=== PATIENT | male | born 1955 | race Caucasian/White ===

== ENCOUNTER 2017-04-21 01:55 | Emergency (ER) | payer MEDICARE, MEDICAID ==
[~2017-04-21] VITALS: Ht 180.3 cm; Wt 77.1 kg
[~2017-04-21 01:55] MED LIST: ADVAIR DISK28 PUFFS IN; AEROSOL THERAPY1 DEV XX; AMITRIPTYLINE 550 MG PO; AMLODIPINE5 M1 PO; AUGMENTIN 875-1 EACH PO; CARVEDILOL6.25 MG PO; CLEOCIN HCL300 MG PO; COMBIVENT RESPI1 SPR IH; CYMBALTA60 MG PO; DALIRESP500 MCG PO; HYDROCODONE-APA1 TA1 PO; IPRATROPIUM BROM3 M1 IH; LYRICA50 MG PO; MEDROL 4MG. DOSE4 MG PO; METFORMIN500 MG PO; OXYBUTYNIN CHLO10 MG PO; PRAVACHOL 40MG40 MG PO; PREDNISONE 20MG20 MG PO; SINGULAIR 10 MG10 MG PO; TRAZODONE HCL300 M1 PO
--- OUTSIDE RECORDS SUMMARY | 2017-04-21 02:29 | External Medical Summary Rpt ---
Author Author , JESUS LEE Address Unknown Phone [email or web address] Care Team Providers Care Floorworker Lasting Name Role Phone ALAN PHILLIPS Unavailable Unavailable MANPREET BOSWELL BOND, Unavailable Unavailable [facility] Unavailable Unavailable SERVICE, [facility] Unavailable [facility]available SERVICE, [facility] CHIPPS PAIGE & Unavailable Unavailable DUBILIER, [facility], Unavailable Unavailable [facility], Unavailable Unavailable [facility] Unavailable Unavailable EQUIPMENT, [facility] Unavailable Unavailable EQUIPMENT, [facility] PINEDA, PINEDA Unavailable Unavailable DALATI, WILLIE A, Unavailable Unavailable DALATI, WILLIE A PHILIP, PHILIP Unavailable Unavailable ROZ BULLOCK EVANS, Unavailable Unavailable RO[facility] Unavailable Unavailable HOME, [facility], Unavailable Unavailable [facility] Unavailable Unavailable INC, [facility] Unavailable Unavailable [facility]PITAL , [facility] Unavailable Unavailable [facility]ICAL CENT, [facility] Unavailable [facility]available [facility]ING [facility], [facility], Unavailable Unavailable [facility], Unavailable Unavailable [facility] Unavailable Unavailable MEDIC, [facility] MARIVEL PRADO, Unavailable Unavailable ROZ TADEO JR, RICE, Unavailable Unavailable MOY ROA, Unavailable Unavailable MOY IRVIN PHILIP N, Unavailable Unavailable AMI GAMBOA Purpose Continuity of Care Document - 10-22-2007 through 2016 Problems Code Diagnosis DOS Provider Status J449 CHRONIC 03-25-2017 [facility] P[facility] EQUIPMENT DISEASE UNS C3490 MALIGNANT 03-19-2017 [facility] NEOPLASM [facility] UNS PART INC UNS BRONCHUS/RAAJN NG Z0389 ENCOUNTER 03-19-2017 [facility]BSERV [facility]TH [facility] SUSPCT DZ & INC COND RULED OUT R0902 HYPOXEMIA 03-18-2017 [facility] J441 CHRONIC 03-09-2017 [facility] P[facility]MONARY DZ W/EXACERBAT ION D381 NEOPLASM 03-05-2017 [facility] P BRONCHUS & LUNG I10 ESSENTIAL 02-06-2017 [facility] HYPERTENSIO HOME N J439 EMPHYSEMA 02-06-2017 [facility] UNSPECIFIED [facility]BULANCE SERVICE J9611 CHRONIC 02-06-2017 [facility] RESPIRATORY [facility]SING FAILURE HOME WITH HYPOXIA M6281 MUSCLE 02-06-2017 [facility] WEAKNESS NURSING GENERALIZED HOME R010 BENIGN AND 02-06-2017 [facility] INNOCENT NURSING CARDIAC HOME MURMURS R5382 CHRONIC 02-06-2017 [facility] FATIGUE NURSING UNSPECIFIED HOME R55 SYNCOPE AND 02-06-2017 [facility] COLLAPSE SKILLED NURSING J189 PNEUMONIA 02-04-2017 [facility] UNSPECIFIED PAIGE & ORGANISM DUBILIER C3431 MALIGNANT 02-03-2017 [facility] NEOPLASM [facility] P RT BRONCHUS/RAJAN NG J9621 ACUTE & 02-03-2017 [facility] RESPIRATORY [facility] P FAILURE WITH HYPOXIA R918 OTHER 02-03-2017 [facility] FINDING OF LUNG FIELD Z9981 DEPENDENCE 02-03-2017 [facility] P L OXYGEN 17977 COR 06-09-2012 [facility] UNSPEC CARE TYPE VESSEL IQUGMIUT/EDYTA T 4660 ACUTE 06-09-2012 [facility] BRONCHITIS PRIMARY CARE 43310 CHEST PAIN 06-09-2012 [facility] UNSPECIFIED PRIMARY CARE 04210 OTHER 12-13-2008 [facility] CAVITY AND PSC SINUSES 7840 HEADACHE 12-13-2008 [facility] PSC 4019 UNSPECIFIED 12-07-2008 [facility] ESSENTIAL T HYPERTENSIO N 10189 OBSTRUCTIVE 12-07-2008 [facility] CHRONIC T BRONCHITIS WITHOUT EXACERBAT 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 4720 CHRONIC 10-10-2008 [facility] RHINITIS MOY J 4730 CHRONIC 10-10-2008 [facility] MAXILLARY MOY J SINUSITIS 4731 CHRONIC 10-10-2008 [facility] FRONTAL MOY J SINUSITIS 4732 CHRONIC 10-10-2008 [facility] ETHMOIDAL MOY J SINUSITIS 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 JENNY BULLOCK 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 86455 NONEXUDATIV 09-09-2008 Matias BULLOCK SENILE ROZ MACULAR DEGENERATIO N RETINA 61046 UNSPECIFIED 09-09-2008 KOBE CORNEAL ROZ OPACITY 2722 MIXED 09-08-2008 [facility] [place] [facility] ALBA 4779 ALLERGIC 09-08-2008 JUNIOR ROZ RHINITIS T CAUSE UNSPECIFIED 26936 PAIN IN 09-08-2008 [facility] JOINT, T SHOULDER REGION V7644 SPECIAL 09-08-2008 [facility] SCREENING [facility] MALIGNANT NEOPLASM OF PROSTATE 3502 ATYPICAL 07-08-2008 [facility] FACE PAIN MOY Mccollum 470 DEVIATED 07-08-2008 [facility] NASAL MOY J SEPTUM 4780 HYPERTROPHY 07-08-2008 [facility] OF NASAL MOY J TURBINATES 4718 OTHER POLYP 07-05-2008 [facility] SINUS [facility] 496 CHRONIC 07-05-2008 [facility] PSC OBSTRUCTION NEC 67507 ESOPHAGEAL 07-05-2008 [place] REFLUX [facility] V5869 LONG-TERM 07-05-2008 [place] (CURRENT) [facility] USE OF MEDICAL OTHER CENT MEDICATIONS 2356 NEOPLASM OF 02-22-2008 [facility] IRVIN [facility]IOR OF [place] 57473 OTHER VOICE 02-22-2008 DENISE IRVIN RESONANCE DISORDERS V1582 PERS HX 02-22-2008 [facility] TOBACCO USE MOY Mccollum PRESENTING [facility] 2724 OTHER AND 11-02-2007 [facility] UNSPECIFIED T HYPERLIPIDE ALBA C34.90 MALIGNANT NEOPLASM OF UNSP PART OF UNSP BRONCHUS OR LUNG D64.9 Anemia, unspecified E08.9 Diabetes mellitus due to underlying condition without complicatio ns E46 Unspecified protein-juliann orie malnutritio n I48.91 UNSPECIFIED ATRIAL FIBRILLATIO N I48.92 UNSPECIFIED ATRIAL FLUTTER I51.9 Heart disease, unspecified J44.1 CHRONIC OBSTRUCTIVE PULMONARY DISEASE W (ACUTE) EXACERBATIO N J96.21 ACUTE AND CHRONIC RESPIRATORY FAILURE WITH HYPOXIA Z72.0 TOBACCO USE Allergies, Adverse Reactions, Alerts Adverse Reaction to Substance Substance Reaction Severity MORPHINE Anxiety PENTAZOCINE LACTATE Anxiety Results Labs Lab Lab Date Result Refere Interp Status Commen Order Detail nces retati t Range on Glyhm (06-15-2013 11:39) Hemoglo 5.9 % 4.2-6.3 complet bin A1c 013 ed 11:39 Vit B12 (06-15-2013 11:39) Vitamin 304 211-911 complet B12, 013 pg/mL ed Level 11:39 CBC WITH AUTO DIFFERENTIAL (12-17-2011 05:13) BASO, 12-16-2 0.02 0.00-0. Normal complet ABSOLUT 012 THOU/uL 20 ed E 05:13 EOS, 12-16-2 0.15 0.00-0. Normal complet ABSOLUT 012 THOU/uL 40 ed E 05:13 MONO, 12-16-2 0.55 0.00-1. Normal complet ABSOLUT 012 THOU/uL 00 ed E 05:13 LYMPH, 12-16-2 1.73 1.00-4. Normal complet ABSOLUT 012 THOU/uL 00 ed E 05:13 NEUTROP 2 2.03 1.50-7. Normal complet HIL, 012 THOU/uL 00 ed ABSOLUT 05:13 E BASO % 2 0.4 % 0.0-2.0 Normal complet 012 ed 05:13 EOS % 2 3.3 % 0.0-6.0 Normal complet 012 ed 05:13 MONO % 12-16-2 12.2 % 2.0-12. Above complet 012 0 high ed 05:13 normal LYMPH % 12-16-2 38.5 % 12.0-44 Normal complet 012 .0 ed 05:13 NEUTROP 12-16-2 45.4 % 47.0-76 Below complet HILS % 012 .0 low ed 05:13 normal IMM 12-16-2 < 3 % <3 Normal complet GRANULO 012 ed CYTE % 05:13 MEAN 10.5 fL 8.6-11. Normal complet PLATELE 012 7 ed T 05:13 VOLUME PLATELE 80 150-375 Below complet T COUNT 012 THOU/uL low ed 05:13 normal RED 13.4 % 11.5-14 Normal complet CELL 012 .5 ed DISTRIB 05:13 UTION WIDTH MEAN 33.9 31.0-36 Normal complet CORPUSC 012 g/dL .0 ed ULAR 05:13 HGB CONC MEAN 31.7 pg 26.0-33 Normal complet CORPUSC 012 .0 ed ULAR 05:13 HEMOGLO BIN MEAN 93.5 fL 80.0-94 Normal complet CORPUSC 012 .0 ed ULAR 05:13 VOLUME HEMATOC 41.6 % 40.0-54 Normal complet RIT 012 .0 ed 05:13 HEMOGLO 14.1 14.0-18 Normal complet BIN 012 g/dL .0 ed 05:13 RED 4.45 4.60-6. Below complet BLOOD 012 MILL/uL 20 low ed COUNT 05:13 normal WHITE 4.49 4.00-11 Normal complet BLOOD 012 THOU/uL .00 ed COUNT 05:13 LIPID PROFILE (12-17-2011 05:13) CHOLEST 2.0 Normal complet PAMELA/HD 012 ed L RATIO 05:13 NON-HDL 59 Normal complet 012 mg/dL ed CHOLEST 05:13 PAMELA VLDL 19 Normal complet CHOLEST 012 mg/dL ed PAMELA 05:13 LDL 40 <100 Normal complet CHOLEST 012 mg/dL ed PAMELA 05:13 HDL 62 >39 Normal complet CHOLEST 012 mg/dL ed PAMELA 05:13 TRIGLYC 96 <150 Normal complet ERIDES 012 mg/dL ed 05:13 CHOLEST 121 115-200 Normal complet PAMELA 012 mg/dL ed 05:13 BASIC METABOLIC PANEL (12-17-2011 05:13) CALCIUM 7.9 8.4-10. Below complet 012 mg/dL 2 low ed 05:13 normal CARBON 32.0 22.0-30 Above complet DIOXIDE 012 mEq/L .0 high ed 05:13 normal CHLORID 102 98-109 Normal complet E 012 mEq/L ed 05:13 POTASSI 3.9 3.5-5.1 Normal complet UM 012 mEq/L ed 05:13 SODIUM 140 137-145 Normal complet 012 mEq/L ed 05:13 BUN/CRE 14.8 10.0-20 Normal complet ATININE 012 .0 ed RATIO 05:13 GLOMERU > 60 >60 Normal complet LAR 012 ed FILTRAT 05:13 ION RATE CREATIN 0.54 0.70-1. Below complet INE 012 mg/dL 30 low ed 05:13 normal BLOOD 8 mg/dL 7-25 Normal complet UREA 012 ed NITROGE 05:13 N GLUCOSE 99 70-100 Normal complet 012 mg/dL ed 05:13 CREATINE KINASE (12-16-2011 09:25) CREATIN 60 U/L 55-170 Normal complet E 012 ed KINASE 09:25 LIPID PROFILE (12-16-2011 09:25) CHOLEST 1.9 Normal complet PAMELA/HD 012 ed L RATIO 09:25 NON-HDL 86 Normal complet 012 mg/dL ed CHOLEST 09:25 PAMELA VLDL 23 Normal complet CHOLEST 012 mg/dL ed PAMELA 09:25 LDL 63 <100 Normal complet CHOLEST 012 mg/dL ed PAMELA 09:25 HDL 92 >39 Normal complet CHOLEST 012 mg/dL ed PAMELA 09:25 TRIGLYC 116 <150 Normal complet ERIDES 012 mg/dL ed 09:25 CHOLEST 178 115-200 Normal complet PAMELA 012 mg/dL ed 09:25 CK-MB (INITIAL) (12-16-2011 09:25) CK-MB 1.34 <=2.37 Normal complet (INITIA 012 ng/mL ed L) 09:25 CBC WITH AUTO DIFFERENTIAL (12-16-2011 09:25) BASO, 0.03 0.00-0. Normal complet ABSOLUT 012 THOU/uL 20 ed E 09:25 EOS, 2 0.17 0.00-0. Normal complet ABSOLUT 012 THOU/uL 40 ed E 09:25 MONO, 0.68 0.00-1. Normal complet ABSOLUT 012 THOU/uL 00 ed E 09:25 LYMPH, 2.96 1.00-4. Normal complet ABSOLUT 012 THOU/uL 00 ed E 09:25 NEUTROP 2.69 1.50-7. Normal complet HIL, 012 THOU/uL 00 ed ABSOLUT 09:25 E BASO % 03-12-2 0.5 % 0.0-2.0 Normal complet 012 ed 09:25 EOS % 03-12-2 2.6 % 0.0-6.0 Normal complet 012 ed 09:25 MONO % 03-12-2 10.4 % 2.0-12. Normal complet 012 0 ed 09:25 LYMPH % 03-12-2 45.2 % 12.0-44 Above complet 012 .0 high ed 09:25 normal NEUTROP 03-12-2 41.0 % 47.0-76 Below complet HILS % 012 .0 low ed 09:25 normal IMM 03-12-2 < 3 % <3 Normal complet GRANULO 012 ed CYTE % 09:25 MEAN 03-12-2 10.5 fL 8.6-11. Normal complet PLATELE 012 7 ed T 09:25 VOLUME PLATELE 03-12-2 122 150-375 Below complet T COUNT 012 THOU/uL low ed 09:25 normal RED 03-12-2 13.5 % 11.5-14 Normal complet CELL 012 .5 ed DISTRIB 09:25 UTION WIDTH MEAN 03-12-2 34.5 31.0-36 Normal complet CORPUSC 012 g/dL .0 ed ULAR 09:25 HGB CONC MEAN 03-12-2 32.3 pg 26.0-33 Normal complet CORPUSC 012 .0 ed ULAR 09:25 HEMOGLO BIN MEAN 03-12-2 93.5 fL 80.0-94 Normal complet CORPUSC 012 .0 ed ULAR 09:25 VOLUME HEMATOC 03-12-2 49.0 % 40.0-54 Normal complet RIT 012 .0 ed 09:25 HEMOGLO 03-12-2 16.9 14.0-18 Normal complet BIN 012 g/dL .0 ed 09:25 RED 03-12-2 5.24 4.60-6. Normal complet BLOOD 012 MILL/uL 20 ed COUNT 09:25 WHITE 03-12-2 6.55 4.00-11 Normal complet BLOOD 012 THOU/uL .00 ed COUNT 09:25 BLOOD CULTURE (12-15-2011 10:10) BLOOD 12-14- NO active CULTURE 012 GROWTH REPORT 10:10 AFTER 3 DAYS BLOOD CULTURE (12-15-2011 09:55) BLOOD NO active CULTURE 012 GROWTH REPORT 09:55 AFTER 3 DAYS TROPONIN I (INITIAL) (12-15-2011 09:43) TROPONI 12-14-2 < 0.012 <=0.034 Normal complet N I 012 ng/mL ed (INITIA 09:43 L) CK-MB (INITIAL) (12-15-2011 09:43) CK-MB 2.79 <=2.37 Above complet (INITIA 012 ng/mL upper ed L) 09:43 panic limits CBC WITH AUTO DIFFERENTIAL (12-15-2011 09:43) BASO, -11-2 0.03 0.00-0. Normal complet ABSOLUT 012 THOU/uL 20 ed E 09:43 EOS, -11-2 0.09 0.00-0. Normal complet ABSOLUT 012 THOU/uL 40 ed E 09:43 MONO, -11-2 0.48 0.00-1. Normal complet ABSOLUT 012 THOU/uL 00 ed E 09:43 LYMPH, 11-2 2.08 1.00-4. Normal complet ABSOLUT 012 THOU/uL 00 ed E 09:43 NEUTROP -11-2 3.07 1.50-7. Normal complet HIL, 012 THOU/uL 00 ed ABSOLUT 09:43 E BASO % -11-2 0.5 % 0.0-2.0 Normal complet 012 ed 09:43 EOS % -11-2 1.6 % 0.0-6.0 Normal complet 012 ed 09:43 MONO % -11-2 8.3 % 2.0-12. Normal complet 012 0 ed 09:43 LYMPH % -11-2 36.2 % 12.0-44 Normal complet 012 .0 ed 09:43 NEUTROP -11-2 53.4 % 47.0-76 Normal complet HILS % 012 .0 ed 09:43 MEAN 11-2 10.0 fL 8.6-11. Normal complet PLATELE 012 7 ed T 09:43 VOLUME PLATELE 12-14-2 146 150-375 Below complet T COUNT 012 THOU/uL low ed 09:43 normal RED --2 13.7 % 11.5-14 Normal complet CELL 012 .5 ed DISTRIB 09:43 UTION WIDTH MEAN 03-11-2 34.9 31.0-36 Normal complet CORPUSC 012 g/dL .0 ed ULAR 09:43 HGB CONC MEAN 31.7 pg 26.0-33 Normal complet CORPUSC 012 .0 ed ULAR 09:43 HEMOGLO BIN MEAN 90.8 fL 80.0-94 Normal complet CORPUSC 012 .0 ed ULAR 09:43 VOLUME HEMATOC 53.0 % 40.0-54 Normal complet RIT 012 .0 ed 09:43 HEMOGLO 18.5 14.0-18 Above complet BIN 012 g/dL .0 high ed 09:43 normal RED 5.84 4.60-6. Normal complet BLOOD 012 MILL/uL 20 ed COUNT 09:43 WHITE 5.75 4.00-11 Normal complet BLOOD 012 THOU/uL .00 ed COUNT 09:43 CREATINE KINASE (12-15-2011 09:43) CREATIN 97 U/L 55-170 Normal complet E 012 ed KINASE 09:43 COMPREHENSIVE METABOLIC PANEL (12-15-2011 09:43) ALKALIN 121 U/L 38-126 Normal complet E 012 ed PHOSPHA 09:43 TASE ALANINE 26 U/L 13-69 Normal complet 012 ed AMINOTR 09:43 ANSFERA SE/ALT ASPARTA 35 U/L 15-46 Normal complet TE 012 ed AMINOTR 09:43 ANSFERA SE/AST BILIRUB 0.8 0.2-1.3 Normal complet IN,TOTA 012 mg/dL ed L 09:43 ALBUMIN 4.5 3.5-5.0 Normal complet 012 g/dL ed 09:43 TOTAL 8.1 6.3-8.2 Normal complet PROTEIN 012 g/dL ed 09:43 CALCIUM 9.3 8.4-10. Normal complet 012 mg/dL 2 ed 09:43 CARBON 28.0 22.0-30 Normal complet DIOXIDE 012 mmol/L .0 ed 09:43 CHLORID 99 98-109 Normal complet E 012 mmol/L ed 09:43 POTASSI 4.4 3.5-5.1 Normal complet UM 012 mmol/L ed 09:43 SODIUM 140 137-145 Normal complet 012 mmol/L ed 09:43 BUN/CRE 8.3 Normal complet ATININE 012 ed RATIO 09:43 GLOMERU > 60 >60 Normal complet LAR 012 ed FILTRAT 09:43 ION RATE CREATIN 0.60 0.70-1. Below complet INE 012 mg/dL 30 low ed 09:43 normal BLOOD 5 mg/dL 7-25 Below complet UREA 012 low ed NITROGE 09:43 normal N GLUCOSE 120 70-100 Above complet 012 mg/dL high ed 09:43 normal Procedures Procedure DOS Code Location Performer Comment [facility] 7 MEDICAL MEDICAL USED EQUIPMENT EQUIPMENT W/POS ARWAY PRESSURE DEVICE CT THORAX [address]5007 [facility] CARTER 7 [facility] W/[place] [address] RA[facility] CARTER ABDOMEN & 7 [facility] PELVIS INC INC W/CONTRAS T MATERIAL LOCM Q9967 RAUL CRAMERON [phone] 7 [facility] MG/ML INC INC IODINE CONCENTRA TION PER ML PORTABLE E0443 [facility] O2 7 MEDICAL MEDICAL CONTENTS GASEOUS 1 MO SUPPLY=1 UNIT NEBULIZER E0570 [facility] WITH 7 MEDICAL MEDICAL COMPRESSO R HUMDIFIR E0562 [facility] HEATED 7 MEDICAL MEDICAL USED EQUIPMENT EQUIPMENT W/POS ARWAY PRESSURE DEVICE NEBULIZER E0570 [facility] WITH 7 MEDICAL MEDICAL COMPRESSO R ADMN SET A7005 [facility] W/SM VOL 7 MEDICAL MEDICAL NONFILTR NEBULIZR NON-DISPB L AMBULANCE A0428 [facility] SERVICE 7 AMBULANCE AMBULANCE BLS SERVICE SERVICE NONEMERGE NCY TRANSPORT GROUND A0425 [facility] MILEAGE 7 AMBULANCE AMBULANCE PER SERVICE SERVICE STATUTE MILE ECG 35430 RA[facility] CARTER ROUTINE 7 [facility] W/LEAST P P 12 LDS I&R ONLY CYTP 47062 [facility] SLCTV 7 PAIGE & ER JR CELL DUBILIER ENHANCEME NT INTERPJ XCPT C/[place] [address] [facility] SURG 7 PAIGE & ER JR PATHOLOGY DUBILIER GROSS&DONNY ROSCOPIC EXAM INITIAL 84777 [facility] 7 [facility] [address] THORAX 14916 [facility] 7 MEDICAL W/CONTRAS IMAGING T ASS MATERIAL MRI BRAIN 39477 JASON [place] BRAIN 9 [facility] W/O REGIONAL REGIONAL W/CONTRAS MEDIC MEDIC T MATERIAL NASAL 75192 [facility] ENDOSCOPY 9 , MOY VENEGAS DIAGNOSTI C UNI/BI SPX XTRNL 34307 KOBE BULLOCK, OCULAR 8 ROZ COURTNEY PHOTOG W/I&R DOCMT MEDICAL PROGRE FUNDUS 74372 KOBE BULLOCK, PHOTOGRAP 8 ROZ COURTNEY HY W/INTERPR ETATION & REPORT COLLECTIO 49603 RICE RICE, N VENOUS 8 ROZ COURTNEY T BLOOD VENIPUNCT URE HEMOGLOBI 70587 [facility] N 8 [facility] NU A1C COMPREHEN 17014 [facility] SIVE 8 [facility] METABOLIC PANEL PROSTATE G0103 [facility] CANCER 8 [facility] SCREENING ; PSA TEST LIPID 41551 [facility] PANEL 8 [facility] NASAL 02764 [facility] END[facility] 8 , MOY VENEGAS DIAGNOSTI C UNI/BI SPX NASAL/SIN 57700 [facility] NDHI 8 , MOY VENEGAS SURG W/TELLY BULLOSA RESECTION NASAL/SIN [address] ENDOSCOPY MEDICAL MEDICAL CENT CENT W/ETHMOID ECTOMY TOTAL NSL/SINUS 89834 [facility] NDSC MAX [address] [place] [address] ANTROST MEDICAL MEDICAL W/RMVL CENT CENT TISS MAX SINUS NASAL/SIN 25146 [facility] US NDSC 8 REGIONAL REGIONAL W/FRONTAL MEDICAL MEDICAL SINUS CENT CENT EXPLORATI ON SUBMUCOUS 43500 [facility] RESCJ 8 REGIONAL REGIONAL INFERIOR MEDICAL MEDICAL TURBINATE CENT CENT PRTL/COMP L INJECTION J2250 [facility] 8 REGIONAL REGIONAL MIDAZOLAM MEDICAL MEDICAL HCL PER CENT CENT 1 MG INJECTION J2370 [facility] 8 REGIONAL REGIONAL PHENYLEPH MEDICAL MEDICAL RINE HCL CENT CENT UP TO 1 ML INJECTION J2405 [facility] 8 REGIONAL REGIONAL ONDANSETR MEDICAL MEDICAL ON HCL CENT CENT PER 1 MG FLUOROSCO 49796 [facility] PY SPX UP 8 REGIONAL REGIONAL TO 1 MEDICAL MEDICAL HOUR CENT CENT PH[place] [address] [facility] SURG 8 REGIONAL REGIONAL PATHOLOGY MEDICAL MEDICAL CENT CENT GROSS&DONNY ROSCOPIC EXAM SEPTOPLAS 54893 [facility] TY/SUBMUC 8 REGIONAL REGIONAL OUS MEDICAL MEDICAL RESECJ CENT CENT W/WO CARTILAGE GRF NASAL/SIN 08624 [facility] US 8 , MOY J , MOY Mccollum ENDOSCOPY W/ETHMOID ECTOMY PARTIAL INJECTION J2710 [facility] 8 REGIONAL REGIONAL NEOSTIGMI MEDICAL MEDICAL NE CENT CENT METHYLSUL FATE UP TO 0.5 MG INJECTION J3010 [facility] FENTANYL 8 REGIONAL REGIONAL CITRATE MEDICAL MEDICAL 0.1 MG CENT CENT INFUSION J7030 [facility] NORMAL 8 REGIONAL REGIONAL SALINE MEDICAL MEDICAL SOLUTION CENT CENT 1000 CC INJECTION J1100 [facility] 8 REGIONAL REGIONAL DEXAMETHO MEDICAL MEDICAL SONE CENT CENT SODIUM PHOSPHATE 1 MG INJECTION J2001 [facility] 8 REGIONAL REGIONAL LIDOCAINE MEDICAL MEDICAL HCL CENT CENT INTRAVENO US INFUS 10 MG RINGERS J7120 [facility] LACTATE 8 REGIONAL REGIONAL INFUSION MEDICAL MEDICAL UP TO CENT CENT 1000 CC PROTHROMB 79752 [facility] IN TIME 8 REGIONAL REGIONAL MEDICAL MEDICAL CENT CENT THROMBOPL 18867 [facility] ASTIN 8 REGIONAL REGIONAL TIME MEDICAL MEDICAL PARTIAL CENT CENT PLASMA/WH OLE BLOOD ECG 31528 [facility] ROUTINE 8 REGIONAL REGIONAL ECG MEDICAL MEDICAL W/LEAST CENT CENT 12 LDS TRCG ONLY W/O I&R COLLECTIO 68303 [facility] N VENOUS 8 REGIONAL REGIONAL BLOOD MEDICAL MEDICAL VENIPUNCT CENT CENT URE RADIOLOGI 67599 [facility] C EXAM 8 REGIONAL REGIONAL CHEST 2 MEDICAL MEDICAL VIEWS CENT CENT FRONTAL&L ATERAL BLOOD 07221 [facility] COUNT 8 REGIONAL REGIONAL COMPLETE MEDICAL MEDICAL AUTO&AUTO CENT CENT DIFRNTL WBC ECG 04252 MCDERMOTT DALATI, ROUTINE 8 REGIONAL WILLIE A ECG MEDICAL W/LEAST CENTER 12 LDS I&R ONLY DRUG 21093 [facility] ASSAY 8 REGIONAL REGIONAL VALPROIC MEDICAL MEDICAL DIPROPYLA [place] [address] [facility] MAXILLOFA 8 REGIONAL REGIONAL CIAL W/O MEDICAL MEDICAL CONTRAST CENT CENT MATERIAL LARYNGOSC 38370 [facility] DURHAM 8 , MOY Mccollum , MOY Mccollum FLEXIBLE DIAGNOSTI C O2 CONC 1 E1390 [facility] 8 MEDICAL MEDICAL 85%/>02 INC INC CONC AT PRSC FLW RATE O2 CONC 1 E1390 [facility] [place] 8 MEDICAL MEDICAL 85%/>02 INC INC CONC AT PRSC FLW RATE NEBULIZER E0570 [facility] WITH 8 MEDICAL MEDICAL COMPRESSO INC INC R O2 CONC 1 E1390 [facility] [place] 8 MEDICAL MEDICAL 85%/>02 INC INC CONC AT PRSC FLW RATE O2 CONC 1 E1390 [facility] [place] 8 MEDICAL MEDICAL 85%/>02 INC INC CONC AT PRSC FLW RATE Encounters Encounter Start End Date Code Location Performer Type Date HOSPITAL [facility] - 7 7 [facility] OUTPAT[facility] T OFFICE [id number] [facility] 7 7 [facility] 10 P MINUTES [facility] - [facility] INPATIENT 7 7 [facility] SKILLED NURSING OFFICE [id number] [facility] 2 PRIMARY T V[facility] CARE 15 MINUTES CLINIC, [facility] 2 2 [facility] [place] [id number] 9 [facility] T MEDIC OFFICE 20094 [facility] OUTPATIEN 9 9 ROZ Patterson T VISIT 15 MINUTES OFFICE 55507 [facility] [place] [facility] 8 8 ROZ Patterson VISIT 25 MINUTES OFFICE [id number] [facility] OUTPATIEN 8 8 ROZ Patterson T VISIT 10 MINUTES [facility] [place] [address] [facility] MEDICAL T CENT OFFICE 17096 JUNIOR [facility], CONSULTARELI 8 8 ROZ Patterson ION NEW/ESTAB PATIENT 60 MIN [facility] [place] [address] 8 [facility]ENT OFFICE 42546 [facility] 8 8 , MOY VENEGAS T NEW 30 MINUTES OFFICE [id number] [facility] OUTPATIEN 8 8 ROZ Patterson VISIT 15 MINUTES
--- OUTSIDE RECORDS SUMMARY | 2017-04-21 02:29 | External Medical Summary Rpt ---
Author Author , JESUS LEE Address Unknown Phone [email or web address] Care Team Providers Care Med Admin Name Role Phone ALAN PHILLIPS Unavailable Unavailable [facility]WELL [facility], Unavailable Unavailable [facility] Unavailable Unavailable SERVICE, [facility] Unavailable Unavailable SERVICE, [facility] CHIPPS PAIGE & Unavailable Unavailable DUBILIER, [facility], Unavailable Unavailable [facility], Unavailable Unavailable [facility] Unavailable Unavailable EQUIPMENT, [facility] Unavailable Unavailable EQUIPMENT, [facility] PINEDA, PINEDA Unavailable Unavailable DALATI, WILLIE A, Unavailable Unavailable DALATI, WILLIE A PHILIP, PHILIP Unavailable Unavailable [facility], Unavailable Unavailable [facility] Unavailable Unavailable HOME, [facility], Unavailable Unavailable [facility] Unavailable Unavailable INC, [facility] Unavailable [facility]available H[facility]PITAL , [facility] Unavailable Unavailable MEDICAL CENT, [facility] Unavailable [facility]available [facility], [facility], [facility]available Unavailable [facility], Unavailable Unavailable [facility] Unavailable Unavailable MEDIC, [facility] MARIVEL PRADO, Unavailable Unavailable ROZ TADEO JR, RICE, Unavailable Unavailable MOY ROA, Unavailable Unavailable MOY IRVIN PHILIP N, Unavailable Unavailable AMI GAMBOA Purpose Continuity of Care Document - 10-22-2007 through 2016 Problems Code Diagnosis DOS Provider Status J449 CHRONIC 03-25-2017 [facility] PULMONARY EQUIPMENT DISEASE UNS C3490 MALIGNANT 03-19-2017 [facility] UNS PART INC UNS BRONCHUS/RAJAN NG Z0389 ENCOUNTER 03-19-2017 [facility]BSERV [facility]TH [facility] SUSPCT DZ & INC COND RULED OUT R0902 HYPOXEMIA 03-18-2017 [facility] J441 CHRONIC 03-09-2017 [facility] PULMONARY DZ W/EXACERBAT ION D381 NEOPLASM 03-05-2017 [facility] BRONCHUS & LUNG [...] R55 SYNCOPE AND 02-06-2017 [facility] J189 PNEUMONIA 02-04-2017 [facility] UNSPECIFIED PAIGE & ORGANISM DUBILIER C3431 MALIGNANT 02-03-2017 [facility] P RT BRONCHUS/RAJAN NG J9621 ACUTE & 02-03-2017 [facility] RESPIRATORY [facility] P FAILURE WITH HYPOXIA R918 OTHER 02-03-2017 [facility] FINDING OF LUNG FIELD Z9981 DEPENDENCE 02-03-2017 [facility] P L OXYGEN 32821 COR 06-09-2012 [facility] PRIMARY UNSPEC CARE TYPE VESSEL KALTAG/EDYTA T 4660 ACUTE 06-09-2012 [facility] BRONCHITIS [facility]IMARY CARE 93637 CHEST PAIN 06-09-2012 [facility] UNSPECIFIED PRIMARY CARE 92173 OTHER 12-13-2008 [facility] CAVITY AND PSC SINUSES 7840 HEADACHE 12-13-2008 [facility] PSC 4019 UNSPECIFIED 12-07-2008 [facility] ESSENTIAL T HYPERTENSIO N 86936 OBSTRUCTIVE 12-07-2008 [facility] CHRONIC T BRONCHITIS WITHOUT EXACERBAT 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 4720 CHRONIC 10-10-2008 [facility] RHINITIS MOY J 4730 CHRONIC 10-10-2008 [facility] MAXILLARY MOY J SINUSITIS 4731 CHRONIC 10-10-2008 [facility] FRONTAL MOY J SINUSITIS 4732 CHRONIC 10-10-2008 [facility] ETHMOIDAL MOY J SINUSITIS 48191 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 JENNY BULLOCK 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 63192 NONEXUDATIV 09-09-2008 Matias BULLOCK SENILE ROZ MACULAR DEGENERATIO N RETINA 78524 UNSPECIFIED 09-09-2008 KOBE CORNEAL ROZ OPACITY 2722 MIXED 09-08-2008 [facility] [place] ALBA 4779 ALLERGIC 09-08-2008 JUNIOR ROZ RHINITIS T CAUSE UNSPECIFIED 02536 PAIN IN 09-08-2008 [facility] JOINT, T SHOULDER REGION V7644 SPECIAL 09-08-2008 [facility] SCREENING [facility] MALIGNANT NEOPLASM OF PROSTATE 3502 ATYPICAL 07-08-2008 [facility] FACE PAIN MOY Mccollum 470 DEVIATED 07-08-2008 [facility] NASAL MOY J SEPTUM 4780 HYPERTROPHY 07-08-2008 [facility] OF NASAL MOY J TURBINATES 4718 OTHER POLYP 07-05-2008 [facility] S[facility]US [facility] 496 CHRONIC 07-05-2008 [facility] AIRWAY IMAGING PSC OBSTRUCTION NEC 60777 ESOPHAGEAL 07-05-2008 [facility] REFLUX [facility] V5869 LONG-TERM 07-05-2008 [facility] (CURRENT) [facility] USE OF MEDICAL OTHER CENT MEDICATIONS 2356 NEOPLASM OF 02-22-2008 [facility] [place] 95992 OTHER VOICE 02-22-2008 DENISE IRVIN RESONANCE DISORDERS [...] Procedures Procedure DOS Code Location Performer Comment [facility] E0562 [facility] 7 MEDICAL MEDICAL USED EQUIPMENT EQUIPMENT W/POS ARWAY PRESSURE DEVICE CT THORAX 45615 [facility] CARTER 7 [facility] W/[place] [address] [facility] CARTER ABDOMEN & 7 [facility] PELVIS INC INC W/CONTRAS T MATERIAL LOCM Q9967 [facility] CRAMERON [phone] [facility] MG/ML INC INC IODINE CONCENTRA TION PER ML PORTABLE E0443 [facility] O2 7 MEDICAL MEDICAL CONTENTS GASEOUS 1 MO SUPPLY=1 UNIT NEBULIZER E0570 [facility] TRUNER WITH 7 MEDICAL MEDICAL COMPRESSO R HUMDIFIR E0562 [facility] 7 MEDICAL MEDICAL USED EQUIPMENT EQUIPMENT W/POS ARWAY PRESSURE DEVICE NEBULIZER E0570 [facility] WITH 7 MEDICAL MEDICAL COMPRESSO R ADMN SET A7005 [facility] W/SM VOL 7 MEDICAL MEDICAL NONFILTR NEBULIZR NON-DISPB L AMBULANCE A0428 [facility] SERVICE 7 AMBULANCE AMBULANCE BLS SERVICE SERVICE NONEMERGE NCY TRANSPORT GROUND A0425 [facility] MILEAGE 7 AMBULANCE AMBULANCE PER SERVICE SERVICE STATUTE MILE ECG 81300 [facility] ROUTINE 7 [facility] W/LEAST P P 12 LDS I&R ONLY CYTP 71544 [facility] PICKLES[facility] SLCTV 7 PAIGE & ER JR CELL DUBILIER ENHANCEME NT INTERPJ XCPT C/[place] L[place] [address] [facility] SURG 7 PAIGE & ER JR PATHOLOGY DUBILIER GROSS&DONNY ROSCOPIC EXAM INITIAL 197[address] [facility] [address] [facility] [address] THORAX 79800 [facility] 7 MEDICAL W/CONTRAS IMAGING T ASS MATERIAL MRI BRAIN 23774 JASON Burnham BRAIN 9 [facility] W/O REGIONAL REGIONAL W/CONTRAS MEDIC MEDIC T MATERIAL NASAL 26583 [facility] ENDOSCOPY 9 , MOY VENEGAS DIAGNOSTI C UNI/BI SPX XTRNL 46240 KOBE BULLOCK, OCULAR 8 [facility] PHOTOG W/I&R DOCMT MEDICAL PROGRE FUNDUS 62001 KOBE BULLOCK, PHOTOGRAP 8 [facility] HY W/INTERPR ETATION & REPORT COLLECTIO 84310 RICE RICE, N VENOUS 8 [facility] COURTNEY T BLOOD VENIPUNCT URE HEMOGLOBI 12458 [facility] N 8 [facility] GLYCOSYLA NU A1C COMPREHEN 73550 [facility] SIVE 8 [facility] METABOLIC PANEL PROSTATE G0103 [facility] CANCER 8 [facility] SCREENING ; PSA TEST LIPID 47887 [facility] PANEL 8 [facility] NASAL 27467 [facility] ENDOSCOPY 8 , MOY VENEGAS DIAGNOSTI C UNI/BI SPX NASAL/SIN 60515 [facility] NDCT 8 , MOY VENEGAS SURG W/TELLY BULLOSA RESECTION NASAL/SIN [address] ENDOSCOPY MEDICAL MEDICAL CENT CENT W/ETHMOID ECTOMY TOTAL NSL/SINUS 23780 [facility] NDSC MAX [address] [place] [address] ANTROST MEDICAL MEDICAL W/RMVL CENT CENT TISS MAX SINUS NASAL/SIN 09533 [facility] US NDSC 8 REGIONAL REGIONAL W/FRONTAL MEDICAL MEDICAL SINUS CENT CENT EXPLORATI ON SUBMUCOUS 73306 [facility] RESCJ 8 REGIONAL REGIONAL INFERIOR MEDICAL MEDICAL TURBINATE CENT CENT PRTL/COMP L INJECTION J2250 [facility] 8 REGIONAL REGIONAL MIDAZOLAM MEDICAL MEDICAL HCL PER CENT CENT 1 MG INJECTION J2370 [facility] 8 REGIONAL REGIONAL PHENYLEPH MEDICAL MEDICAL RINE HCL CENT CENT UP TO 1 ML INJECTION J2405 [facility] 8 REGIONAL REGIONAL ONDANSETR MEDICAL MEDICAL ON HCL CENT CENT PER 1 MG FLUOROSCO 47174 [facility] PY SPX UP 8 REGIONAL REGIONAL TO 1 MEDICAL MEDICAL HOUR CENT CENT PHYS/[place] [address] [facility] SURG 8 REGIONAL REGIONAL PATHOLOGY MEDICAL MEDICAL CENT CENT GROSS&DONNY ROSCOPIC EXAM SEPTOPLAS 44736 [facility] TY/SUBMUC 8 REGIONAL REGIONAL OUS MEDICAL MEDICAL RESECJ CENT CENT W/WO CARTILAGE GRF NASAL/SIN 58438 [facility] US 8 , MOY J , MOY Mccollum ENDOSCOPY W/ETHMOID ECTOMY PARTIAL INJECTION J2710 [facility] 8 REGIONAL REGIONAL NEOSTIGMI MEDICAL MEDICAL NE CENT CENT METHYLSUL FATE UP TO 0.5 MG INJECTION J3010 [facility] FENTANYL 8 REGIONAL REGIONAL CITRATE MEDICAL MEDICAL 0.1 MG CENT CENT INFUSION J7030 [facility] NORMAL 8 REGIONAL REGIONAL SALINE MEDICAL MEDICAL SOLUTION CENT CENT 1000 CC INJECTION J1100 [facility] 8 REGIONAL REGIONAL DEXAMETHO MEDICAL MEDICAL SONE CENT CENT SODIUM PHOSPHATE 1 MG INJECTION J2001 [facility] 8 REGIONAL REGIONAL LIDOCAINE MEDICAL MEDICAL HCL CENT CENT INTRAVENO US INFUS 10 MG RINGERS J7120 [facility] LACTATE 8 REGIONAL REGIONAL INFUSION MEDICAL MEDICAL UP TO CENT CENT 1000 CC PROTHROMB 10805 [facility] IN TIME 8 REGIONAL REGIONAL MEDICAL MEDICAL CENT CENT THROMBOPL 50834 [facility] ASTIN 8 REGIONAL REGIONAL TIME MEDICAL MEDICAL PARTIAL CENT CENT PLASMA/WH OLE BLOOD ECG 48282 [facility] ROUTINE 8 REGIONAL REGIONAL ECG MEDICAL MEDICAL W/LEAST CENT CENT 12 LDS TRCG ONLY W/O I&R COLLECTIO 41276 [facility] N VENOUS 8 REGIONAL REGIONAL BLOOD MEDICAL MEDICAL VENIPUNCT CENT CENT URE RADIOLOGI 96595 [facility] C EXAM 8 REGIONAL REGIONAL CHEST 2 MEDICAL MEDICAL VIEWS CENT CENT FRONTAL&L ATERAL BLOOD 92548 [facility] COUNT 8 REGIONAL REGIONAL COMPLETE MEDICAL MEDICAL AUTO&AUTO CENT CENT DIFRNTL WBC ECG 45068 [facility] DALATI, ROUTINE 8 REGIONAL WILLIE A ECG MEDICAL W/LEAST CENTER 12 LDS I&R ONLY DRUG 60353 [facility] ASSAY 8 REGIONAL REGIONAL VALPROIC MEDICAL MEDICAL DIPROPYLA [place] [address] [facility] MAXILLOFA 8 REGIONAL REGIONAL CIAL W/O MEDICAL MEDICAL CONTRAST CENT CENT MATERIAL LARYNGOSC 98103 [facility] 8 , MOY Mccollum , [...] 7 [facility] H[facility] OUTPATIEN INC T OFFICE 30756 [facility] OUTPATIEN 7 7 [facility] 10 P MINUTES SN[facility] - [facility] INPATIENT 7 7 [facility] OFF[facility] 07349 [facility] PR[facility] T VIS[facility] CARE 15 MINUTES CLINIC, [facility] 2 2 PRIMARY [facility]ARE [facility] [place] [address] 9 [facility] T MEDIC OFFICE 07905 [facility] OUTPATIEN 9 9 ROZ Patterson T VISIT 15 MINUTES OFFICE 54552 KOBE BULLOCK OUTLUANNE 8 8 ROZ Patterson VISIT 25 MINUTES OFFICE 16051 [facility] OUTPATIEN 8 8 ROZ Patterson T VISIT 10 MINUTES [facility] [place] [address] 8 [facility] [place] T CENT OFFICE 76058 [facility], CONSULTARELI 8 8 ROZ Patterson ION NEW/ESTAB PATIENT 60 MIN [facility] [place] [address] 8 [facility] CENT OFF[facility] 98233 [facility] 8 8 , MOY VENEGAS T NEW 30 MINUTES OFFICE 19373 [facility] OUTPATIEN 8 8 ROZ Patterson VISIT 15 MINUTES
--- OUTSIDE RECORDS SUMMARY | 2017-04-21 02:31 | External Medical Summary Rpt ---
Author Author KRISTINE Address Unknown Phone [email or web address] Immunization Name Date Rout CVX Reac Dose Comm Prov Is Faci e tion ent ider Refu lity Give sed n PPV2 10-1 33 999 Hist H158 No H158 3 9-20 oric 06 al Info rmat ion - Sour ce Unsp ecif ied
--- OUTSIDE RECORDS SUMMARY | 2017-04-21 02:31 | External Medical Summary Rpt ---
Author Author , JESUS Organization JESUS Address Unknown Phone [email or web address] ([email or web address]) Care Team Providers Care Nursery Supervisor Name Role Phone [facility] [place] Unavailable Unavailable INC, [facility] [place] [facility] ALAN BESJIM Unavailable Unavailable MANPREET BOSWELL BOND, Unavailable Unavailable MANPREET [facility] Unavailable Unavailable SERVICE, [facility] Unavailable Unavailable SERVICE, [facility] PA[facility] & Unavailable Unavailable DUBILIER, [facility], Unavailable Unavailable [facility], Unavailable Unavailable [facility] Unavailable Unavailable EQUIPMENT, [facility] Unavailable Unavailable EQUIPMENT, [facility] PINEDA, PINEDA Unavailable Unavailable DALATI, WILLIE A, Unavailable Unavailable DALATI, WILLIE A PHILIP, PHILIP Unavailable Unavailable ROZ BULLOCK EVANS, Unavailable Unavailable [facility] Unavailable Unavailable HOME, [facility], Unavailable Unavailable [facility] Unavailable Unavailable INC, [facility] Unavailable Unavailable HOSPITAL P, [facility] Un[facility] Un[facility], [facility] Unavailable Unavailable IM[facility]ING [facility], [facility], Unavailable Unavailable [facility], Unavailable Unavailable [facility] MARIVEL PRADO, Unavailable Unavailable ROZ TADEO JR, RICE, Unavailable Unavailable MOY ROA, Unavailable Unavailable MOY IRVIN PHILIP N, Unavailable Unavailable AMI GAMBOA Purpose Continuity of Care Document - 10-22-2007 through 2016 Problems Code Diagnosis DOS Provider Status J449 CHRONIC 03-25-2017 [facility] OBSTRUCTIVE MEDICAL PULMONARY EQUIPMENT DISEASE UNS C3490 MALIGNANT 03-19-2017 [facility] UNS PART INC UNS BRONCHUS/RAJAN NG Z0389 ENCOUNTER 03-19-2017 [facility] OBSERV OTH [facility] SUSPCT DZ & INC COND RULED OUT R0902 HYPOXEMIA 03-18-2017 [facility] J441 CHRONIC 03-09-2017 [facility] OBSTRUCTIVE MEDICAL PULMONARY DZ W/EXACERBAT ION D381 NEOPLASM 03-05-2017 [facility] P BRONCHUS & LUNG [...] R55 SYNCOPE AND 02-06-2017 [facility] J189 PNEUMONIA 02-04-2017 [facility] UNSPECIFIED PAIGE & ORGANISM DUBILIER C3431 MALIGNANT 02-03-2017 [facility] NEOPLASM [facility] P RT BRONCHUS/RAJAN NG J9621 ACUTE & 02-03-2017 [facility] RESPIRATORY [facility] P FAILURE WITH HYPOXIA R918 OTHER 02-03-2017 [place] NONSPECIFIC MEDICAL ABNORMAL IMAGING ASS FINDING OF LUNG FIELD Z9981 DEPENDENCE 02-03-2017 [facility] P L OXYGEN 72189 COR 06-09-2012 [facility] PRIMARY UNSPEC CARE TYPE VESSEL ELIM IRA/EDYTA T 4660 ACUTE 06-09-2012 [facility] BRONCHITIS PRIMARY CARE 77978 CHEST PAIN 06-09-2012 [facility] UNSPECIFIED PRIMARY CARE 04708 OTHER 12-13-2008 [facility] IM[facility] NASAL ASSOCIATES CAVITY AND PSC SINUSES 7840 HEADACHE 12-13-2008 [facility] PSC 4019 UNSPECIFIED 12-07-2008 ROZ PAC[facility] ESSENTIAL T HYPERTENSIO N 59139 OBSTRUCTIVE 12-07-2008 [facility] CHRONIC T BRONCHITIS WITHOUT EXACERBAT 71565 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 4720 CHRONIC 10-10-2008 [facility] RHINITIS MOY J 4730 CHRONIC 10-10-2008 [facility] MAXILLARY MOY J SINUSITIS 4731 CHRONIC 10-10-2008 [facility] FRONTAL MOY J SINUSITIS 4732 CHRONIC 10-10-2008 [facility] ETHMOIDAL MOY J SINUSITIS 93630 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 JENNY BULLOCK II/UNS NOT 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 46979 NONEXUDATIV 09-09-2008 Matias BULLOCK SENILE ROZ MACULAR DEGENERATIO N RETINA 08270 UNSPECIFIED 09-09-2008 KOBE CORNEAL ROZ OPACITY 2722 MIXED 09-08-2008 [facility] HYPERLIPIDE [place] INC ALBA 4779 ALLERGIC 09-08-2008 [facility] PAC[facility] RHINITIS T CAUSE UNSPECIFIED 70721 PAIN IN 09-08-2008 JUNIOR ROZ JOINT, T SHOULDER REGION V7644 SPECIAL 09-08-2008 [facility] SCREENING [facility] MALIGNANT NEOPLASM OF PROSTATE 3502 ATYPICAL 07-08-2008 [facility] FACE PAIN MOY Mccollum 470 DEVIATED 07-08-2008 [facility] NASAL MOY Mccollum SEPTUM 4780 HYPERTROPHY 07-08-2008 [facility] OF NASAL MOY J TURBINATES 4718 OTHER POLYP 07-05-2008 [facility] SINUS [facility] 496 CHRONIC 07-05-2008 [facility] AIRWAY IMAGING PSC OBSTRUCTION NEC 91076 ESOPHAGEAL 07-05-2008 [place] REFLUX [facility] V5869 LONG-TERM 07-05-2008 [place] (CURRENT) [facility] USE OF MEDICAL OTHER CENT MEDICATIONS 2356 NEOPLASM OF 02-22-2008 [facility]IN [facility] [place] 44093 OTHER VOICE 02-22-2008 DENISE IRVIN RESONANCE DISORDERS V1582 PERS HX 02-22-2008 [facility] TOBACCO USE MOY Mccollum PRESENTING [facility] 2724 OTHER AND 11-02-2007 [facility] PAC[facility] UNSPECIFIED T HYPERLIPIDE ALBA Procedures Procedure DOS Code Location Performer Comment [facility] E0562 [facility] 7 MEDICAL MEDICAL USED EQUIPMENT EQUIPMENT W/POS ARWAY PRESSURE DEVICE CT THORAX 84086 [facility] 7 [facility] W/[place] [address] [facility] CARTER ABDOMEN & 7 [facility] PELVIS INC INC W/CONTRAS T MATERIAL LOCM Q9967 [facility] CARTER [phone] [facility] MG/ML INC INC IODINE CONCENTRA TION PER ML PORTABLE E0443 [facility] O2 7 MEDICAL MEDICAL CONTENTS GASEOUS 1 MO SUPPLY=1 UNIT NEBULIZER E0570 [facility] WITH 7 MEDICAL MEDICAL COMPRESSO R HUMDIFIR E0562 [facility] 7 MEDICAL MEDICAL USED EQUIPMENT EQUIPMENT W/POS ARWAY PRESSURE DEVICE ADMN SET A7005 [facility] W/SM VOL 7 MEDICAL MEDICAL NONFILTR NEBULIZR NON-DISPB L AMBULANCE A0428 [facility] SERVICE 7 AMBULANCE AMBULANCE BLS SERVICE SERVICE NONEMERGE NCY TRANSPORT NEBULIZER E0570 [facility] WITH 7 MEDICAL MEDICAL COMPRESSO R GROUND A0425 [facility] MILEAGE 7 AMBULANCE AMBULANCE PER SERVICE SERVICE STATUTE MILE ECG 03559 [facility] ROUTINE 7 [facility] W/LEAST P P 12 LDS I&R ONLY CYTP 08242 [facility] PICKLESIM SLCTV 7 PAIGE & ER JR CELL DUBILIER ENHANCEME NT INTERP[place] XCP[place] C/[place] L[place] [address] [facility]ICK[facility] SURG 7 PAIGE & ER JR [facility] GROSS&DONNY ROSCOPIC EXAM INITIAL [address] THORAX 327[address] [facility] 7 MEDICAL W/CONTRAS IMAGING T ASS MATERIAL MRI BRAIN 14745 ADVANCED BOSWELL, BRAIN 9 IMAGING MANPREET STEM W/O ASSOCIATE W/CONTRAS S PSC T MATERIAL NASAL 80497 [facility] ENDOSCOPY 9 , MOY VENEGAS DIAGNOSTI C UNI/BI SPX XTRNL 18030 KOBE BULLOCK, OCULAR 8 ROZ COURTNEY PHOTOG W/I&R DOCMT MEDICAL PROGRE FUNDUS 90725 KOBE BULLOCK, PHOTOGRAP 8 ROZ COURTNEY HY W/INTERPR ETATION & REPORT COLLECTIO 15727 [facility] N VENOUS 8 ROZ Patterson BLOOD VENIPUNCT URE COMPREHEN 35665 [facility] SIVE 8 [facility] METABOLIC PANEL HEMOGLOBI 10824 [facility] OF N 8 [facility] GLYCOSYLA NU A1C PROSTATE G0103 [facility] CANCER 8 [facility] SCREENING ; PSA TEST LIPID 72527 [facility] PANEL 8 [place] [facility] [place] [facility] NASAL 47750 [facility] ENDOSCOPY 8 , MOY VENEGAS DIAGNOSTI C UNI/BI SPX NASAL/SIN 42670 [facility] US NDSC 8 , MOY VENEGAS SURG W/TELLY BULLOSA RESECTION NASAL/SIN 20852 [facility] 8 REGIONAL REGIONAL ENDOSCOPY MEDICAL MEDICAL CENT CENT W/ETHMOID ECTOMY TOTAL NSL/SINUS 80723 [facility] NDSC MAX 8 , MOY VENEGAS ANTROST W/RMVL TISS MAX SINUS NASAL/SIN 42153 [facility] US NDSC 8 , MOY VENEGAS W/FRONTAL SINUS EXPLORATI ON SUBMUCOUS 20316 [facility] RESCJ 8 , MOY VENEGAS INFERIOR TURBINATE PRTL/COMP L SEPTOPLAS 55342 [facility] TY/SUBMUC 8 , MOY VENEGAS OUS RESECJ W/WO CARTILAGE GRF NASAL/SIN 01403 [facility] US 8 , MOY VENEGAS ENDOSCOPY W/ETHMOID ECTOMY PARTIAL INJECTION J1100 [facility] 8 REGIONAL REGIONAL DEXAMETHO MEDICAL MEDICAL SONE CENT CENT SODIUM PHOSPHATE 1 MG INJECTION J2001 [facility] 8 REGIONAL REGIONAL LIDOCAINE MEDICAL MEDICAL HCL CENT CENT INTRAVENO US INFUS 10 MG RINGERS J7120 [facility] LACTATE 8 REGIONAL REGIONAL INFUSION MEDICAL MEDICAL UP TO CENT CENT 1000 CC INJECTION J2250 [facility] 8 REGIONAL REGIONAL MIDAZOLAM MEDICAL MEDICAL HCL PER CENT CENT 1 MG FLUOROSCO 31025 [facility] PY SPX UP 8 REGIONAL REGIONAL TO 1 MEDICAL MEDICAL HOUR CENT CENT PH[place] [address] [facility] SURG 8 [facility] PATHOLOGY INC INC GROSS&DONNY ROSCOPIC EXAM INJECTION J2710 [facility] 8 REGIONAL REGIONAL NEOSTIGMI MEDICAL MEDICAL NE CENT CENT METHYLSUL FATE UP TO 0.5 MG INJECTION J3010 [facility] FENTANYL 8 REGIONAL REGIONAL CITRATE MEDICAL MEDICAL 0.1 MG CENT CENT INFUSION J7030 [facility] NORMAL 8 REGIONAL REGIONAL SALINE MEDICAL MEDICAL SOLUTION CENT CENT 1000 CC INJECTION J2370 [facility] 8 REGIONAL REGIONAL PHENYLEPH MEDICAL MEDICAL RINE HCL CENT CENT UP TO 1 ML INJECTION J2405 [facility] 8 REGIONAL REGIONAL ONDANSETR MEDICAL MEDICAL ON HCL CENT CENT PER 1 MG THROMBOPL 00763 [facility] ASTIN 8 REGIONAL REGIONAL TIME MEDICAL MEDICAL PARTIAL CENT CENT PLASMA/WH OLE BLOOD COLLECTIO 95326 [facility] N VENOUS 8 REGIONAL REGIONAL BLOOD MEDICAL MEDICAL VENIPUNCT CENT CENT URE RADIOLOGI 51734 CASSEL ZAMBOS, C EXAM 8 [place] AMI N CHEST 2 IMAGING VIEWS PSC FRONTAL&L ATERAL BLOOD 41246 [facility] COUNT 8 REGIONAL REGIONAL COMPLETE MEDICAL MEDICAL AUTO&AUTO CENT CENT DIFRNTL WBC ECG 94956 [facility] ROUTINE 8 REGIONAL REGIONAL ECG MEDICAL MEDICAL W/LEAST CENT CENT 12 LDS TRCG ONLY W/O I&R PROTHROMB 08841 [facility] IN TIME 8 REGIONAL REGIONAL MEDICAL MEDICAL CENT CENT DRUG 39572 [facility] ASSAY 8 REGIONAL REGIONAL VALPROIC MEDICAL MEDICAL DIPROPYLA CENT CENT CETIC ACID TOTAL ECG 24177 [place] DALATI, ROUTINE 8 REGIONAL WILLIE A ECG MEDICAL W/LEAST CENTER 12 LDS I&[place] [address] [facility] MAXILLOFA 8 REGIONAL REGIONAL CIAL W/O MEDICAL MEDICAL CONTRAST CENT CENT MATERIAL LARYNGOSC 31740 [facility] IRVIN OPY 8 , MOY Mccollum , MOY Mccollum [...] INC R O2 CONC 1 E1390 [facility] 8 MEDICAL MEDICAL 85%/>02 INC INC CONC AT [facility] FLW RATE O2 CONC 1 E1390 [facility] 8 MEDICAL MEDICAL 85%/>02 INC INC CONC AT [facility] FLW RATE Encounters Encounter Start End Date Code Location Performer Type Date HOSPITAL [facility] - 7 7 [facility] OUTPATIEN INC T OFFICE 74621 [facility] 7 7 [facility] 10 P MINUTES [facility] 7 7 [facility] 2 2 [facility] OFFICE 47731 [facility] 2 2 PRIMARY T VISIT CARE 15 MINUTES [facility] [place] [id number] 9 [place] [facility] MEDIC OFF[facility] 38202 [facility] OUTPATIEN 9 9 ROZ Patterson T VISIT 15 MINUTES OFFICE 34006 KOBE BULLOCK OUTPATIEN 8 8 ROZ Patterson VISIT 25 MINUTES OFFICE 27916 [facility] OUTPATIEN 8 8 ROZ Patterson T VISIT 10 MINUTES [facility] [place] [address] 8 [facility] OUTPATIEN MEDICAL T CENT OFFICE 45725 [facility] CONSULTARELI 8 8 ROZ Patterson ION NEW/ESTAB PATIENT 60 MIN [facility] [place] [address] 8 REGIONAL OUTPATIEN MEDICAL T CENT OFFICE 19066 [facility] FERNANDO OUTPATIEN 8 8 , MOY VENEGAS NEW 30 MINUTES OFFICE 76009 [facility] OUTPATIEN 8 8 ROZ Patterson T VISIT 15 MINUTES
--- OUTSIDE RECORDS SUMMARY | 2017-04-21 02:31 | External Medical Summary Rpt ---
Author Author , JESUS Organization JESUS Address Unknown Phone [email or web address] Care Team Providers Care Hvac Maintenance Technician Name Role Phone [facility] [place] Unavailable Unavailable INC, [facility] [place] [facility] ALAN BESJIM Unavailable Unavailable MANPREET BOSWELL BOND, Unavailable Unavailable MANPREET [facility] Unavailable Unavailable SERVICE, [facility] Unavailable Unavailable SERVICE, [facility] CHIPPS PAIGE & Unavailable Unavailable DUBILIER, [facility], Unavailable Unavailable [facility], Unavailable Unavailable [facility] Unavailable Unavailable EQUIPMENT, [facility] Unavailable Unavailable EQUIPMENT, [facility] PINEDA, PINEDA Unavailable Unavailable DALATI, WILLIE A, Unavailable Unavailable DALATI, WILLIE A PHILIP, PHILIP Unavailable Unavailable ROZ BULLOCK EVANS, Unavailable Unavailable [facility] Unavailable Unavailable HOME, [facility], Unavailable Unavailable [facility] Unavailable Unavailable INC, [facility] Unavailable Unavailable HOSPITAL P, [facility] Unavailable [facility]available MEDICAL CENT, [facility] [place] Unavailable Unavailable IMAGING ASS, [facility], Unavailable Unavailable [facility], Unavailable Unavailable [facility] MARIVEL PRADO, Unavailable Unavailable ROZ TADEO JR, RICE, Unavailable Unavailable MOY ROA, Unavailable Unavailable MOY IRVIN PHILIP N, Unavailable Unavailable AMI GAMBOA Purpose Continuity of Care Document - 10-22-2007 through 2016 Problems Code Diagnosis DOS Provider Status J449 CHRONIC 03-25-2017 [facility] OBSTRUCTIVE MEDICAL PULMONARY EQUIPMENT DISEASE UNS C3490 MALIGNANT 03-19-2017 [place] NEOPLASM [facility] UNS PART INC UNS BRONCHUS/RAJAN NG Z0389 ENCOUNTER 03-19-2017 [place] OBSERV OTH [facility] SUSPCT DZ & INC COND RULED OUT R0902 HYPOXEMIA 03-18-2017 [facility] J441 CHRONIC 03-09-2017 [facility] OBSTRUCTIVE MEDICAL PULMONARY DZ W/EXACERBAT ION D381 NEOPLASM 03-05-2017 [place] [facility] P BRONCHUS & LUNG [...] R55 SYNCOPE AND 02-06-2017 [facility] J189 PNEUMONIA 02-04-2017 [facility] UNSPECIFIED PAIGE & ORGANISM DUBILIER C3431 MALIGNANT 02-03-2017 [place] NEOPLASM [facility] P RT BRONCHUS/RAJAN NG J9621 ACUTE & 02-03-2017 [facility] RESPIRATORY [facility] P FAILURE WITH HYPOXIA R918 OTHER 02-03-2017 [place] NONSPECIFIC MEDICAL ABNORMAL IMAGING ASS FINDING OF LUNG FIELD Z9981 DEPENDENCE 02-03-2017 [facility] P L OXYGEN 27273 COR 06-09-2012 [facility] PRIMARY UNSPEC CARE TYPE VESSEL [place]VAK/EDYTA T 4660 ACUTE 06-09-2012 [facility] BRONCHITIS PRIMARY CARE 95796 CHEST PAIN 06-09-2012 [facility] UNSPECIFIED PRIMARY CARE 11455 OTHER 12-13-2008 [facility] IM[facility] NASAL ASSOCIATES CAVITY AND PSC SINUSES 7840 HEADACHE 12-13-2008 [facility] PSC 4019 UNSPECIFIED 12-07-2008 [facility] ESSENTIAL T HYPERTENSIO N 41017 OBSTRUCTIVE 12-07-2008 [facility] CHRONIC T BRONCHITIS WITHOUT EXACERBAT 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 4720 CHRONIC 10-10-2008 [facility] RHINITIS MYO J 4730 CHRONIC 10-10-2008 [facility] MAXILLARY MOY J SINUSITIS 4731 CHRONIC 10-10-2008 [facility] FRONTAL MOY J SINUSITIS 4732 CHRONIC 10-10-2008 [facility] ETHMOIDAL MOY J SINUSITIS 74033 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 JENNY BULLOCK II/UNS NOT 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 32798 NONEXUDATIV 09-09-2008 Matias BULLOCK SENILE ROZ MACULAR DEGENERATIO N RETINA 39052 UNSPECIFIED 09-09-2008 KOBE CORNEAL ROZ OPACITY 2722 MIXED 09-08-2008 [facility] HYPERLIPIDE [place] [facility] ALBA 4779 ALLERGIC 09-08-2008 [facility] RHINITIS T CAUSE UNSPECIFIED 99713 PAIN IN 09-08-2008 JUNIOR ROZ JOINT, T SHOULDER REGION V7644 SPECIAL 09-08-2008 [facility]ING [facility] MALIGNANT NEOPLASM OF PROSTATE 3502 ATYPICAL 07-08-2008 [facility] FACE PAIN MOY Mccollum 470 DEVIATED 07-08-2008 [facility] NASAL MOY Mccollum SEPTUM 4780 HYPERTROPHY 07-08-2008 [facility] OF NASAL MOY J TURBINATES 4718 OTHER POLYP 07-05-2008 [facility] SINUS [facility] 496 CHRONIC 07-05-2008 [facility] IMAGING PSC OBSTRUCTION NEC 75619 ESOPHAGEAL 07-05-2008 [place] REFLUX [facility] V5869 LONG-TERM 07-05-2008 [place] (CURRENT) [facility] USE OF MEDICAL OTHER CENT MEDICATIONS 2356 NEOPLASM OF 02-22-2008 [facility] [place] 20613 OTHER VOICE 02-22-2008 DENISE IRVIN RESONANCE DISORDERS V1582 PERS HX 02-22-2008 [facility] TOBACCO USE MOY Mccollum PRESENTING [facility] 2724 OTHER AND 11-02-2007 [facility] PAC[facility] UNSPECIFIED T HYPERLIPIDE ALBA Procedures Procedure DOS Code Location Performer Comment [facility] E0562 [facility] 7 MEDICAL MEDICAL USED EQUIPMENT EQUIPMENT W/POS ARWAY PRESSURE DEVICE CT THORAX 53111 [facility] 7 [facility] W/[place] [address] RAUL CARTER ABDOMEN & 7 [facility] [...] MEDICAL NONFILTR NEBULIZR NON-DISPB L AMBULANCE A0428 [facility] SERV[facility] 7 AMBULANCE AMBULANCE BLS SERVICE SERVICE NONEMERGE NCY TRANSPORT NEBULIZER E0570 [facility] WITH 7 MEDICAL MEDICAL COMPRESSO R GROUND A0425 [facility] MILEAGE 7 AMBULANCE AMBULANCE PER SERVICE SERVICE STATUTE MILE ECG 37708 [facility] ROUTINE 7 [facility] W/LEAST P P 12 LDS I&R ONLY CYTP 23311 [facility] PICK[facility] SLCTV 7 PAIGE & ER JR CELL DUBILIER ENHANCEME NT INTERP[place] XCP[place] C/[place] L[place] [address] [facility] SURG 7 PAIGE & ER [facility] GROSS&DONNY ROSCOPIC EXAM INITIAL [address] THORAX 14383 [facility] 7 MEDICAL W/CONTRAS IMAGING T ASS MATERIAL MRI BRAIN 63097 ADVANCED BOSWELL, BRAIN 9 IMAGING MANPREET STEM W/O ASSOCIATE W/CONTRAS S PSC T MATERIAL NASAL 15956 [facility] ENDOSCOPY 9 , MOY VENEGAS DIAGNOSTI C UNI/BI SPX XTRNL 94401 KOBE BULLOCK, OCULAR 8 ROZ COURTNEY PHOTOG W/I&R DOCMT MEDICAL PROGRE FUNDUS 03348 KOBE BULLOCK, PHOTOGRAP 8 ROZ COURTNEY HY W/INTERPR ETATION & REPORT COLLECTIO 57083 [facility] N VENOUS 8 ROZ Patterson BLOOD VENIPUNCT URE COMPREHEN 85190 [facility] SIVE 8 [facility] METABOLIC PANEL HEMOGLOBI 83196 [facility] N 8 [facility] GLYCOSYLA NU A1C PROSTATE G0103 [facility] CANCER 8 [facility] SCREENING ; PSA TEST LIPID 20675 [facility] PANEL 8 [facility] [facility] NASAL 06887 [facility] ENDOSCOPY 8 , MOY VENEGAS DIAGNOSTI C UNI/BI SPX NASAL/SIN 80355 [facility] US NDSC 8 , MOY VENEGAS SURG W/TELLY BULLOSA RESECTION NASAL/SIN 44141 [facility] 8 REGIONAL REGIONAL ENDOSCOPY MEDICAL MEDICAL CENT CENT W/ETHMOID ECTOMY TOTAL NSL/SINUS 59272 [facility] NDSC MAX 8 , MOY VENEGAS ANTROST W/RMVL TISS MAX SINUS NASAL/SIN 51870 [facility] US NDSC 8 , MOY VENEGAS W/FRONTAL SINUS EXPLORATI ON SUBMUCOUS 37356 [facility] RESCJ 8 , MOY VENEGAS INFERIOR TURBINATE PRTL/COMP L SEPTOPLAS 36827 [facility] TY/SUBMUC 8 , MOY VENEGAS OUS RESECJ W/WO CARTILAGE GRF NASAL/SIN 30821 [facility] US 8 , MOY VENEGAS ENDOSCOPY W/ETHMOID ECTOMY PARTIAL INJECTION J1100 [facility] 8 REGIONAL REGIONAL DEXAMETHO MEDICAL MEDICAL SONE CENT CENT SODIUM PHOSPHATE [address] IN[address] [facility] 8 REGIONAL REGIONAL LIDOCAINE MEDICAL MEDICAL HCL CENT CENT INTRAVENO US INFUS [address] [facility] LACTATE 8 REGIONAL REGIONAL INFUSION MEDICAL MEDICAL UP TO CENT CENT [address] IN[address] [facility] 8 REGIONAL REGIONAL MIDAZOLAM MEDICAL MEDICAL HCL PER CENT CENT [address] [facility] PY SPX UP 8 REGIONAL REGIONAL TO 1 MEDICAL MEDICAL HOUR CENT CENT PH[place] [address] [facility]G [facility] PATHOLOG[facility] INC INC GROSS&DONNY ROSCOPIC EXAM INJECTION J2710 [facility] 8 REGIONAL REGIONAL NEOSTIGMI MEDICAL MEDICAL NE CENT CENT METHYLSUL FATE UP TO 0.[address] [facility] FENTANYL 8 REGIONAL REGIONAL CITRATE MEDICAL MEDICAL 0.1 MG CENT CENT INFUSION J7030 [facility] NORMAL 8 REGIONAL REGIONAL SALINE MEDICAL MEDICAL SOLUTION CENT CENT [address] IN[address] [facility] 8 REGIONAL REGIONAL PHENYLEPH MEDICAL MEDICAL RINE HCL CENT CENT UP TO [address] IN[address] [facility] 8 REGIONAL REGIONAL ONDANSETR MEDICAL MEDICAL ON HCL CENT CENT PER [address] [facility] ASTIN 8 REGIONAL REGIONAL TIME MEDICAL MEDICAL PARTIAL CENT CENT PLASMA/WH OLE BLOOD COLLECTIO 02755 [facility] N VENOUS 8 REGIONAL REGIONAL BLOOD MEDICAL MEDICAL VENIPUNCT CENT CENT URE RADIOLOGI 22918 [place], C EXAM 8 [place] AMI N CHEST 2 IMAGING VIEWS PSC FRONTAL&L ATERAL BLOOD 50621 [facility] COUNT 8 REGIONAL REGIONAL COMPLETE MEDICAL MEDICAL AUTO&AUTO CENT CENT DIFRNTL WBC ECG 17422 [facility] ROUTINE 8 REGIONAL REGIONAL ECG MEDICAL MEDICAL W/LEAST CENT CENT 12 LDS TRCG ONLY W/O I&R PROTHROMB 85209 [facility] IN TIME 8 REGIONAL REGIONAL MEDICAL MEDICAL CENT CENT DRUG 26526 [facility] ASSAY 8 REGIONAL REGIONAL VALPROIC MEDICAL MEDICAL DIPROPYLA CENT CENT CETIC ACID TOTAL ECG 94577 [place] [facility], ROUTINE 8 REGIONAL WILLIE A ECG MEDICAL W/LEAST CENTER 12 LDS I&[place] [address] [facility] MAXILLOFA 8 REGIONAL REGIONAL CIAL W/O MEDICAL MEDICAL CONTRAST CENT CENT MATERIAL LARYNGOSC 03962 [facility] IRVIN OPY 8 , MOY Mccollum [...] MEDICAL 85%/>02 INC INC CONC AT [facility] FLW RATE O2 CONC 1 E1390 [facility] 8 MEDICAL MEDICAL 85%/>02 INC INC [facility] AT [facility] FLW RATE Encounters Encounter Start End Date Code Location Performer Type Date HOSPITAL [facility]UL - 7 7 [facility] T OFFICE [id number] [facility] 7 7 [facility] T VISIT HOSPITAL 10 P MINUTES [facility] 7 7 [facility] 2 2 [facility] OFFICE 19308 [facility] 2 2 PRIMARY T VISIT [facility]ARE 15 MINUTES [facility] [place] [id number] [address] [facility] 45194 [facility] 9 9 ROZ Patterson T VISIT 15 MINUTES OFFICE 81046 [facility] 8 8 ROZ Patterson VISIT 25 MINUTES OFFICE 95615 [facility] 8 8 ROZ Patterson T VISIT 10 MINUTES [facility] [place] [address] 8 [facility] OUTPATIEN MEDICAL T CENT OFFICE 81224 [facility] CONSULTARELI 8 8 ROZ Patterson ION NEW/ESTAB PATIENT 60 MIN [facility] [place] [address] 8 REGIONAL OUTPATIEN MEDICAL T CENT OFFICE [id number] [facility] FERNAND[facility] OUTPATIEN 8 8 , MOY VENEGAS NEW 30 MINUTES OFFICE 51288 [facility] 8 8 ROZ Patterson T VISIT 15 MINUTES
--- OUTSIDE RECORDS SUMMARY | 2017-04-21 02:31 | External Medical Summary Rpt ---
Author Author KRISTINE Address Unknown Phone [email or web address] Immunization Name Date Rout CVX Reac Dose Comm Prov Is Faci e tion ent ider Refu lity Give sed n PPV2 10-1 33 999 Hist H158 No H158 3 9-20 oric 06 al Info rmat ion - Sour ce Unsp ecif ied
[2017-04-21 02:32] LABS: URINE BILIRUBIN - DIPSTICK NEGATIVE (NEG); URINE BLOOD TRACE-INTACT (NEG)
[2017-04-21 02:39] LABS: AMPHETAMINES/METAMPHETAMINES NEGATIVE ng/mL (<1000)
[2017-04-21 02:40] LABS: LYMPH # 2.2 K/mm3 (0.7-4.5); LYMPH % 14.7 % (10-50)
[2017-04-21 02:42] LABS: HEMOGLOBIN 15.4 g/dL (14.1-18.0)
--- NOTE | 2017-04-21 03:58 | Emergency Room Report ---
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 PATIENT CALLED 911 Onset of symptoms date/time:04/21/17 or onset unknown for: Treatment Prior to Arrival: [employer] Provided by: Sepsis Risk Assessment: Temp: 98.2 B/P: 141/88 MAP: 103 Pulse: 131 Resp: 22 Recent fever? N Clinical Suspician of Infection? N Mental Status: 1 - Regular (Normal Baseline) Sepsis Risk:Low Sepsis Risk Have you (or family members/close friends) recently traveled outside the [place]? N If Yes, where/when: Have you had exposure to infectious disease within the past month? N TB? Other? Specify: Source patient, RN notes reviewed, EMS, old records Exam Limitations no limitations Comment pt with lung cancer and is upset but denied any plan for suicide - pt with etoh use but denied any misuse of rx or otc meds Cardiac Chest Pain Chest pain indicative of cardiac No Timing/Duration this evening Severity moderate ALLERGIES Coded Allergies: No Known Allergies (02/01/17) Home Medications Active Scripts Prednisone (Prednisone 20MG) 20 MG PO DAILY #14 TAB Prov: 02/05/17 NEBULIZER (Compact Compressor Nebulizer) 1 UNIT XX UD #1 DEV Ref 1 Prov: 02/05/17 ALBUTEROL/IPRATROPIUM (Combivent Respimat Inhal [place]) 1 PUFF IH QID 30 Days Ref 3 Prov: 02/05/17 Reported Medications Amitriptyline Hcl (Amitriptyline) 50 MG PO QHS Amlodipine Besylate (Amlodipine) 5 MG PO DAILY Montelukast Sodium (Singulair 10MG) 10 MG PO DAILY Oxybutynin Chloride (Oxybutynin Chloride ER) 20 MG PO DAILY Trazodone HCl 300 MG PO QHS Roflumilast (Daliresp) 500 MCG PO DAILY DULOXETINE HCL (Cymbalta 60MG) 60 MG PO DAILY Pregabalin (Lyrica 50MG) 50 MG PO BID Carvedilol (Carvedilol 6.25MG) 6.25 MG PO BID Metformin HCL (Metformin) 500 MG PO BID PRAVASTATIN SODIUM (Pravastatin Sodium) 40 MG PO QHS FLUTICASONE/SALMETEROL (Advair 500-50 Diskus) 1 PUFF IN BID HYDROCODONE 5MG/APAP 325MG (Hydrocodon-Acetaminophen 5-325) 1 TAB PO Q4HP PRN PAIN History Medical History General CAD? No Angina: No [place]: No Hypertension? Yes Hyperlipidemia? Yes CHF? No DVT? No PE? No COPD? Yes Asthma? Yes Anemia? No GERD? Yes Gastric ulcers? No GI Bleed? No Hernia? No Thyroid Problems? No Hypothyroidism? No CVA? No Seizures? No Diabetes? Yes Insulin Dependent: No Insulin Pump: No Home FSBS? Yes Renal Insuffiency? No End Stage Renal Disease? No UTI? No Stones? No BPH? No GB Disease: No Nephritic Syndrome? No Asplenia? No Hepatitis? No Sickle Cell Disease? No Arthritis? No Migraines? No Cataracts? Yes Glaucoma? No MRSA? No HIV? No TB? No Anxiety? No Depression? No Cancer? Yes Site: LUNG CA More? Yes Additional hx: LYMPHOMA, SKIN CA, has received chemotherapy and radiation for lymphoma and skin cancer of head and neck. Diagnosed with lung cancer 2-3 years ago but "my lungs were too bad to do anything about it." Uses BiPAP at night for ventilatory failure issues given his end-stage chronic obstructive pulmonary disease Immunization Hx DT/Tetanus Unknown Pneumonia Refuses Surgical Hx Previous Surgery?Y CATARACTS VOCAL CORD SURGERY Appendectomy CARDIAC STENT X1 Family History Family Hx Diabetes Yes CAD Yes Hypertension Yes Hyperlipidemia No Cancer Yes TB No Social History Smoking Hx Smoker: Current Every Day Smoker Tobacco: Yes Type Cigarettes Packs/day < 1 Pack Alcohol Alcohol: No Drugs none Review of Systems All Other Systems Reviewed and Negative Constitutional denies fever Eyes denies drainage ENT denies: ear discharge, epistaxis, throat pain. Respiratory cough, denies shortness of breath Cardiovascular denies chest pain, denies palpitations, denies syncope Gastrointestinal denies abdominal pain, denies diarrhea, denies vomiting Genitourinary denies: dysuria, frequency, hesitancy, hematuria. Musculoskeletal denies back pain, denies joint pain, denies joint swelling, denies neck pain Skin denies rash Psychiatric/Neurological denies headache, denies seizure Physical Exam Vital Signs Vital Signs Date Time Temp Pulse Resp B/P Pulse O2 O2 Flow FiO2 Ox Delivery Rate 04/21 0600 98.2 111 25 131/70 91 3 04/21 0448 119 20 131/70 96 3 04/21 0348 131 22 141/88 93 04/21 0243 98.2 135 16 152/97 93 3 04/21 0157 98.2 135 16 121/94 93 3 - WBC >12,000 or <4,000 or 10% bands? 2 or more SIRS Criteria Met? B/P:131/70 MAP:103 Creatinine >2.0? UA output<0.5ml/kg/hr for 2 hrs? Platelet count >100,000? Lactate >2.0mmol/1? INR >1.2 or PTT > than 60 sec? Evidence of Organ Dysfunction? Provider documented clinical suspician of infection? N Sepsis Criteria Count: 1 Sepsis Risk: Low Sepsis Risk General Appearance no apparent distress Eye Exam - bilateral eye PERRL, bilateral eye EOMI Ear, Nose, Throat normal ENT inspection Neck supple Respiratory Status No: respiratory distress. Lung Sounds bilateral: rhonchi. 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 No Results/Orders Laboratory Tests 04/21/17 0245: Opiates Screen NEGATIVE, Urine Methadone Screen NEGATIVE, Barbiturates NEGATIVE, Phencyclidine Screen NEGATIVE, Amphetamines Screen NEGATIVE, Benzodiazepines Screen NEGATIVE, Cocaine Screen NEGATIVE, Marijuana (THC) Screen NEGATIVE, Urine Color YELLOW, Urine Appearance CLEAR, Urine pH 5.5, Ur Specific [place] 1.020, Urine Protein NEGATIVE, Urine Ketones NEGATIVE, Urine Blood TRACE-INTACT, Urine Nitrate NEGATIVE, Urine Bilirubin NEGATIVE, Urine Urobilinogen 0.2, Ur Leukocyte Esterase NEGATIVE, Urine RBC 3-5, Amorphous Sediment TRACE, Urine Glucose NEGATIVE 04/21/17 0230: Troponin I 0.06 04/21/17 0230: Sodium 142, Potassium 3.9, Chloride 98, Carbon Dioxide 39 H, BUN 4 L, Creatinine 0.3 L, Estimated Creat Clear 282 H, Estimated GFR (MDRD) 305, Glucose 136 H, Calcium 9.5, Total Bilirubin 0.3, AST 36, ALT 37, Alkaline Phosphatase 155 H, Total Protein 8.4 H, Albumin 3.3 L, Globulin 5.1 H, Albumin/Globulin Ratio 0.6 L, WBC 14.8 H, RBC 5.13, Hgb 15.4, Hct 47.7, MCV 92.9, RDW 13.9, Plt Count 258, MPV 6.7 L, Gran % 77.3, Gran # 11.4 H, Lymphocytes % 14.7, Monocytes % 7.0, Eosinophils % 0.7, Basophils % 0.3, Lymphocytes # 2.2, Monocytes # 1.0, Eosinophils # 0.1, Basophils # 0.0, PUBS MCHC 32.2, MCH 30.0, Salicylates 3.3, Acetaminophen 0 L, Alcohols 158 H 04/21/17 0213: Urine Aldosterone Cancelled Current Medication Orders Sig/Santino Start time Last Medication Dose Route Stop Time Status Admin Metoprolol Tartrate 0 .STK-MED ONE 04/21 0443 DC IV Metoprolol Tartrate 2.5 MG ONCE ONE 04/21 0415 DC 04/21 IV 04/21 0416 0444 Levalbuterol HCl 0 .STK-MED ONE 04/21 0407 DC INH Sodium Chloride 1,000 ML .STK-MED ONE 04/21 0235 DC IV Sodium Chloride 10 ML PRN PRN 04/21 0215 AC IV 04/22 0208 Sodium Chloride 1,000 ML .Q1H1M 04/21 0215 DC 04/21 IV 04/21 0315 0239 Sodium Chloride 10 ML PRN PRN 04/21 0215 AC IV 04/22 0213 Orders Procedure Date/time Status OP COURTSEY MEAL 04/21 0804 Active TROPONIN I 04/21 0402 Complete RT REQUEST XOPENEX NEB 04/21 0400 Active URINALYSIS/COMPLETE 04/21 0245 Complete 12 LEAD EKG-BESSON (INITIAL) 04/21 217 Active DRUG ABUSE SCREEN (TRIAGE) 04/21 214 Complete IV SALINE LOCK 04/21 0208 Active SALICYLATE 04/21 0208 Complete CBC WITH AUTO DIFF 04/21 208 Complete CHEM 12 PROFILE 04/21 208 Complete ALCOHOL 04/21 208 Complete Acetaminophen 04/21 208 Complete CM/EKG CM/release coordinator Rhythm Normal Sinus Rhythm EKG non-spec. ST/Twave chgs XRAY/CT/US XRAY/CT/US XRAY chest XR interpretation by discussed w/radiologist Xray Results abnormal Departure Departure Time of Disposition 0815 Disposition DC Home or Self Care(routine) Clinical Impression Primary Impression: Depression Qualifiers: Depression Type: reactive depression Qualified Code: F32.9 - Major depressive disorder, single episode, unspecified Secondary Impressions: Alcohol intoxication Qualifiers: Complication of substance-induced condition: uncomplicated Qualified Code: F10.920 - Alcohol use, unspecified with intoxication, uncomplicated Condition STABLE Patient Instructions DI for Depression -- Adult Additional Instructions see oncology and pcp for follow up and no etoh Discharge Counseling Counseled pt/family regarding diagnosis, test results, medications/RX, follow up needs, alcohol counseling,> 3min ED Critical Care Critical Care No at 0817
--- NOTE | 2017-04-21 08:10 | RADIOLOGY REPORT PS360 ---
CHEST(2 VIEWS-NOT PORTABLE) HISTORY: Shortness of air SOA ORDERING PHYSICIAN: Kateryna Owens MD PATIENT AGE: 61 years COMPARISON: 02/02/2017 FINDINGS: Unremarkable cardiovascular structures. Right upper lobe mass is once again noted is somewhat more prominent measuring 4.9 x 3.7 cm. There is evidence of COPD. A faint 5 mm opacity is present in the left upper lobe nonspecific. There is hyperinflation with attenuation peripheral pulmonary vessels. There are old bilateral rib fractures. IMPRESSION: 1. Enlarging right upper lobe mass with COPD
[2017-04-21 12:48] VITALS: BP 158/81
[2017-05-12] MEDS ORDERED: XARELTO10 MG PO (09:16)
== END 2017-04-21 12:49 | disposition home or self-care (01) ==
LOC: ER 01:55
PROVIDERS: Emergency Medicine
DX: F32.9 Major depressive disorder, single episode, unspecified (principal); F10.920 Alcohol use, unspecified with intoxication, uncomplicated; C34.90 Malignant neoplasm of unspecified part of unspecified bronchus or lung; E11.9 Type 2 diabetes mellitus without complications; Z72.0 Tobacco use; K21.9 Gastro-esophageal reflux disease without esophagitis; J44.9 Chronic obstructive pulmonary disease, unspecified; I10 Essential (primary) hypertension; Z79.899 Other long term (current) drug therapy

== ENCOUNTER 2017-05-02 21:42 | Emergency (ER) | payer MEDICARE, MEDICAID ==
[~2017-05-02] VITALS: Ht 180.3 cm; Wt 79.4 kg
--- OUTSIDE RECORDS SUMMARY | 2017-05-02 21:53 | External Medical Summary Rpt ---
Author Author , JESUS LEE Address Unknown Phone [email or web address] Purpose Continuity of Care Document - 12-15-2011 through 2016 Problems Code Diagnosis DOS Provider Status C34.92 MALIGNANT 02-05-2017 NEOPLASM OF UNSPECIFIED PART OF LEFT BRONCHUS OR LUNG E11.9 TYPE 2 02-05-2017 DIABETES MELLITUS WITHOUT COMPLICATIO NS F17.210 NICOTINE 02-05-2017 DEPENDENCE, CIGARETTES, UNCOMPLICAT ED I10 ESSENTIAL 02-05-2017 (PRIMARY) HYPERTENSIO N I48.91 UNSPECIFIED 02-05-2017 ATRIAL FIBRILLATIO N J44.9 CHRONIC 02-05-2017 OBSTRUCTIVE PULMONARY DISEASE, UNSPECIFIED R07.89 OTHER CHEST 02-05-2017 PAIN R07.9 CHEST PAIN, 02-05-2017 UNSPECIFIED R10.12 LEFT UPPER 02-05-2017 QUADRANT PAIN Z88.8 ALLERGY 02-05-2017 STATUS TO OTHER DRUGS, MEDICAMENTS AND BIOLOGICAL SUBSTANCES STATUS Z95.5 PRESENCE OF 02-05-2017 CORONARY ANGIOPLASTY IMPLANT AND GRAFT Z99.81 DEPENDENCE 02-05-2017 ON SUPPLEMENTA L OXYGEN C34.90 MALIGNANT NEOPLASM OF UNSP PART OF UNSP BRONCHUS OR LUNG D64.9 Anemia, unspecified E08.9 Diabetes mellitus due to underlying condition without complicatio ns E46 Unspecified protein-juliann orie malnutritio n F10.929 ALCOHOL USE, UNSPECIFIED WITH INTOXICATIO N, UNSPECIFIED F32.9 MAJOR DEPRESSIVE DISORDER, SINGLE EPISODE, UNSPECIFIED I48.92 UNSPECIFIED ATRIAL FLUTTER I51.9 Heart disease, unspecified J44.1 CHRONIC OBSTRUCTIVE PULMONARY DISEASE W (ACUTE) EXACERBATIO N J96.21 ACUTE AND CHRONIC RESPIRATORY FAILURE WITH HYPOXIA Z72.0 TOBACCO USE Allergies, Adverse Reactions, Alerts Adverse Reaction to Substance Substance Reaction Severity MORPHINE Anxiety PENTAZOCINE LACTATE Anxiety Results Labs Lab Lab Date Result Refere Interp Status Commen Order Detail nces retati t Range on TSH SerPl DL<=0.005 mIU/L-aCnc (04-25-2017 03:39) TSH 1.44 0.4-4.2 complet SerPl 017 uIU/mL ed DL<=0.0 03:39 05 mIU/L-a Cnc T4 Free SerPl-mCnc (04-25-2017 03:39) T4 Free 1.1 0.8-1.7 complet 017 ng/dL ed SerPl-m 03:39 Cnc Magnesium SerPl-mCnc (04-25-2017 03:39) Magnesi 1.8 1.9-2.4 complet um 017 mg/dL ed SerPl-m 03:39 Cnc Ca-I SerPl ISE-sCnc (04-24-2017 16:13) Ca-I 4.7 4.6-5.1 complet SerPl 017 mg/dL ed ISE-sCn 16:13 c Phosphate SerPl-mCnc (04-24-2017 16:13) Phospha 3.0 2.5-4.5 complet te 017 mg/dL ed SerPl-m 16:13 Cnc Magnesium SerPl-mCnc (04-24-2017 16:13) Magnesi 1.5 1.9-2.4 complet um 017 mg/dL ed SerPl-m 16:13 Cnc Vit B12 (06-15-2013 11:39) Vitamin 304 211-911 complet B12, 013 pg/mL ed Level 11:39 Glyhm (06-15-2013 11:39) Hemoglo 5.9 % 4.2-6.3 complet bin A1c 013 ed 11:39 LIPID PROFILE (12-17-2011 05:13) CHOLEST 12-16-2 2.0 Normal complet PAMELA/HD 012 ed L RATIO 05:13 NON-HDL 59 Normal complet 012 mg/dL ed CHOLEST 05:13 PAMELA VLDL 12-16- 19 Normal complet CHOLEST 012 mg/dL ed PAMELA 05:13 LDL 40 <100 Normal complet CHOLEST 012 mg/dL ed PAMELA 05:13 HDL 12-16-2 62 >39 Normal complet CHOLEST 012 mg/dL [...] 70-100 Normal complet 012 mg/dL ed 05:13 CBC WITH AUTO DIFFERENTIAL (12-17-2011 05:13) BASO, 0.02 0.00-0. Normal complet ABSOLUT 012 THOU/uL 20 ed E 05:13 EOS, 0.15 0.00-0. Normal complet ABSOLUT 012 THOU/uL 40 ed E 05:13 MONO, 0.55 0.00-1. Normal complet ABSOLUT 012 THOU/uL 00 ed E 05:13 LYMPH, 1.73 1.00-4. Normal complet ABSOLUT 012 THOU/uL 00 ed E 05:13 NEUTROP 2.03 1.50-7. Normal complet HIL, 012 THOU/uL 00 ed ABSOLUT 05:13 E BASO % 0.4 % 0.0-2.0 Normal complet 012 ed 05:13 EOS % 03-13-2 3.3 % 0.0-6.0 Normal complet 012 ed [...] GRANULO 012 ed CYTE % 05:13 MEAN 2 10.5 fL 8.6-11. Normal complet PLATELE 012 7 ed T 05:13 VOLUME PLATELE 12-16-2 80 150-375 Below complet T COUNT 012 THOU/uL low ed 05:13 normal RED 12-16- 13.4 % 11.5-14 Normal complet CELL 012 .5 ed DISTRIB 05:13 UTION WIDTH MEAN 33.9 31.0-36 Normal complet CORPUSC 012 g/dL .0 ed ULAR 05:13 HGB CONC MEAN 31.7 pg 26.0-33 Normal complet CORPUSC 012 .0 ed ULAR 05:13 HEMOGLO BIN MEAN 12-16- 93.5 fL 80.0-94 Normal complet CORPUSC 012 .0 ed ULAR 05:13 VOLUME HEMATOC 12-16-2 41.6 % 40.0-54 Normal complet RIT 012 .0 ed 05:13 HEMOGLO 12-16-2 14.1 14.0-18 Normal complet BIN 012 g/dL .0 ed 05:13 RED 12-16-2 4.45 4.60-6. Below complet BLOOD 012 MILL/uL 20 low ed COUNT 05:13 normal WHITE 12-16-2 4.49 4.00-11 Normal complet BLOOD 012 THOU/uL .00 ed COUNT 05:13 CK-MB (INITIAL) (12-16-2011 09:25) CK-MB 12-15-2 1.34 <=2.37 Normal complet (INITIA 012 ng/mL ed L) 09:25 CBC WITH AUTO DIFFERENTIAL (12-16-2011 09:25) BASO, 2 0.03 0.00-0. Normal complet ABSOLUT 012 THOU/uL 20 ed E 09:25 EOS, 03-12-2 0.17 0.00-0. Normal complet ABSOLUT 012 THOU/uL 40 ed E 09:25 MONO, 03-12-2 0.68 0.00-1. Normal complet ABSOLUT 012 THOU/uL 00 ed E 09:25 LYMPH, 03-12-2 2.96 1.00-4. Normal complet ABSOLUT 012 THOU/uL 00 ed E 09:25 NEUTROP 03-12-2 2.69 1.50-7. Normal complet HIL, 012 THOU/uL [...] BIN 012 g/dL .0 ed 09:25 RED 5.24 4.60-6. Normal complet BLOOD 012 MILL/uL 20 ed COUNT 09:25 WHITE 6.55 4.00-11 Normal complet BLOOD 012 THOU/uL .00 ed COUNT 09:25 CREATINE KINASE (12-16-2011 09:25) CREATIN 60 U/L [...] Normal complet PAMELA 012 mg/dL ed 09:25 BLOOD CULTURE (12-15-2011 10:10) BLOOD NO active CULTURE 012 GROWTH REPORT 10:10 AFTER 3 DAYS BLOOD CULTURE (12-15-2011 09:55) BLOOD NO active CULTURE 012 GROWTH REPORT 09:55 AFTER 3 DAYS TROPONIN I (INITIAL) (12-15-2011 09:43) TROPONI < 0.012 <=0.034 Normal complet N I 012 ng/mL ed (INITIA 09:43 L) CK-MB (INITIAL) (12-15-2011 09:43) CK-MB 2.79 <=2.37 Above complet (INITIA 012 ng/mL upper ed L) 09:43 panic limits CBC WITH AUTO DIFFERENTIAL (12-15-2011 09:43) BASO, 0.03 0.00-0. Normal complet ABSOLUT 012 THOU/uL 20 ed E 09:43 EOS, 0.09 0.00-0. Normal complet ABSOLUT 012 THOU/uL 40 ed E 09:43 MONO, 03-11-2 0.48 0.00-1. Normal complet ABSOLUT 012 THOU/uL 00 ed E 09:43 LYMPH, 03-11-2 2.08 1.00-4. Normal complet ABSOLUT 012 THOU/uL 00 ed E 09:43 NEUTROP 03-11-2 3.07 1.50-7. Normal complet HIL, 012 THOU/uL 00 ed ABSOLUT 09:43 E BASO % 03-11-2 0.5 % 0.0-2.0 Normal complet 012 ed 09:43 EOS % 03-11-2 1.6 % 0.0-6.0 Normal complet 012 ed 09:43 MONO % 03-11-2 8.3 % 2.0-12. Normal complet 012 0 ed 09:43 LYMPH % -11-2 36.2 % 12.0-44 Normal complet 012 .0 ed 09:43 NEUTROP -11-2 53.4 % 47.0-76 Normal complet HILS % 012 .0 ed 09:43 MEAN 11-2 10.0 fL 8.6-11. Normal complet PLATELE 012 7 ed T 09:43 VOLUME PLATELE 11-2 146 150-375 Below complet T COUNT 012 THOU/uL low ed 09:43 normal RED -11-2 13.7 % 11.5-14 Normal complet CELL 012 .5 ed DISTRIB 09:43 [place] WIDTH MEAN 11-2 34.9 31.0-36 Normal complet CORPUSC 012 g/dL .0 ed ULAR 09:43 HGB CONC MEAN 12-14-2 31.7 pg 26.0-33 Normal complet CORPUSC 012 .0 ed ULAR 09:43 HEMOGLO BIN MEAN -11-2 90.8 fL 80.0-94 Normal complet CORPUSC 012 .0 ed ULAR 09:43 VOLUME HEMATOC -11-2 53.0 % 40.0-54 Normal complet RIT 012 .0 ed 09:43 HEMOGLO -11-2 18.5 14.0-18 Above complet BIN 012 g/dL .0 high ed 09:43 normal RED -11-2 5.84 4.60-6. Normal complet BLOOD 012 MILL/uL 20 ed COUNT 09:43 WHITE 03-11-2 5.75 4.00-11 Normal complet BLOOD 012 THOU/uL [...] DIOXIDE 012 mmol/L .0 ed 09:43 CHLORID 12-14- 99 98-109 Normal complet E 012 mmol/L ed 09:43 POTASSI 4.4 3.5-5.1 Normal complet UM 012 mmol/L ed 09:43 SODIUM 140 137-145 Normal complet 012 mmol/L ed 09:43 BUN/CRE 8.3 Normal complet ATININE 012 ed RATIO 09:43 GLOMERU 2 > 60 >60 Normal complet LAR 012 ed FILTRAT 09:43 ION RATE CREATIN 0.60 0.70-1. Below complet INE 012 mg/dL 30 low ed 09:43 normal BLOOD 5 mg/dL 7-25 Below complet UREA 012 low ed NITROGE 09:43 normal N GLUCOSE 120 70-100 Above complet 012 mg/dL high ed 09:43 normal
--- OUTSIDE RECORDS SUMMARY | 2017-05-02 21:53 | External Medical Summary Rpt ---
Demographics Preferred Language Czech Marital Status Unknown Zoroastrianism Affiliation Unknown Race Unknown Ethnic Group Unknown Author Author KRISTINE Address Unknown Phone [email or web address] Purpose Continuity of Care Document - through 2016
--- OUTSIDE RECORDS SUMMARY | 2017-05-02 21:53 | External Medical Summary Rpt ---
Demographics Preferred Language Citizen Of [place] Marital Status Unknown Jain Affiliation Unknown Race Unknown Ethnic Group Unknown Author Author , KRISTINE LEE Address Unknown Phone Immunization Unable to retrieve immunization data due to connection failure with Immunization Registry. Please try again later.
--- OUTSIDE RECORDS SUMMARY | 2017-05-02 21:53 | External Medical Summary Rpt ---
Demographics Preferred Language Nigerien Marital Status Unknown Hinduism Affiliation Unknown Race Unknown Ethnic Group Unknown Author Author , KRISTINE LEE Address Unknown Phone Immunization Unable to retrieve immunization data due to connection failure with Immunization Registry. Please try again later.
--- OUTSIDE RECORDS SUMMARY | 2017-05-02 21:53 | External Medical Summary Rpt ---
Demographics Preferred Language Mohawk Marital Status Unknown Lutheran Affiliation Unknown Race Unknown Ethnic Group Unknown Author Author KRISTINE Address Unknown Phone [email or web address] Purpose Continuity of Care Document - through 2016
--- OUTSIDE RECORDS SUMMARY | 2017-05-02 21:53 | External Medical Summary Rpt ---
Author Author , JESUS LEE Address Unknown Phone [email or web address] Purpose Continuity of Care Document - 12-15-2011 [...]
--- NOTE | 2017-05-02 22:11 | Emergency Room Report ---
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 N Clinical Suspician of Infection? N Mental Status: 1 - Regular (Normal Baseline) Sepsis Risk:Severe Sepsis Risk Have you (or family members/close friends) recently traveled outside the [place]? N If Yes, where/when: Have you had exposure to infectious disease within the past month? TB? Other? Specify: Source patient, RN notes reviewed, EMS, old records Exam Limitations no limitations Comment pt with etoh use and has inc hr which pt has had before with recent stay at for same and has been here also for same -pt is not suicidial but takes meds as he wishes at times and he uses etoh daily- he also has known lung cancer and is being eval at this time Cardiac Chest Pain Chest pain indicative of cardiac No Timing/Duration this evening Severity moderate ALLERGIES Coded Allergies: No Known Allergies (02/01/17) Home Medications Active Scripts Prednisone (Prednisone 20MG) 20 MG PO DAILY #14 TAB Prov: 02/05/17 NEBULIZER (Compact Compressor Nebulizer) 1 UNIT XX UD #1 DEV Ref 1 Prov: 02/05/17 ALBUTEROL/IPRATROPIUM (Combivent Respimat Inhal [place]) 1 PUFF IH QID 30 Days Ref 3 Prov: 02/05/17 Reported Medications Amitriptyline Hcl (Amitriptyline) 50 MG PO QHS Amlodipine Besylate (Amlodipine) 5 MG PO DAILY Montelukast Sodium (Singulair 10MG) 10 MG PO DAILY Oxybutynin Chloride (Oxybutynin Chloride ER) 20 MG PO DAILY Trazodone HCl 300 MG PO QHS Roflumilast (Daliresp) 500 MCG PO DAILY DULOXETINE HCL (Cymbalta 60MG) 60 MG PO DAILY Pregabalin (Lyrica 50MG) 50 MG PO BID Carvedilol (Carvedilol 6.25MG) 6.25 MG PO BID Metformin HCL (Metformin) 500 MG PO BID PRAVASTATIN SODIUM (Pravastatin Sodium) 40 MG PO QHS FLUTICASONE/SALMETEROL (Advair 500-50 Diskus) 1 PUFF IN BID HYDROCODONE 5MG/APAP 325MG (Hydrocodon-Acetaminophen 5-325) 1 TAB PO Q4HP PRN PAIN History Medical History General CAD? No Angina: No [place]: No Hypertension? Yes Hyperlipidemia? Yes CHF? No DVT? No PE? No COPD? Yes Asthma? Yes Anemia? No GERD? Yes Gastric ulcers? No GI Bleed? No Hernia? No Thyroid Problems? No Hypothyroidism? No CVA? No Seizures? No Diabetes? Yes Insulin Dependent: No Insulin Pump: No Home FSBS? Yes Renal Insuffiency? No End Stage Renal Disease? No UTI? No Stones? No BPH? No GB Disease: No Nephritic Syndrome? No Asplenia? No Hepatitis? No Sickle Cell Disease? No Arthritis? No Migraines? No Cataracts? Yes Glaucoma? No MRSA? No HIV? No TB? No Anxiety? No Depression? No Cancer? Yes Site: LUNG CA More? Yes Additional hx: LYMPHOMA, SKIN CA, has received chemotherapy and radiation for lymphoma and skin cancer of head and neck. Diagnosed with lung cancer 2-3 years ago but "my lungs were too bad to do anything about it." Uses BiPAP at night for ventilatory failure issues given his end-stage chronic obstructive pulmonary disease Immunization Hx DT/Tetanus Unknown Pneumonia Refuses Surgical Hx Previous Surgery?Y CATARACTS VOCAL CORD SURGERY Appendectomy CARDIAC STENT X1 Family History Family Hx Diabetes Yes CAD Yes Hypertension Yes Hyperlipidemia No Cancer Yes TB No Social History Smoking Hx Smoker: Current Every Day Smoker Tobacco: Yes Type Cigarettes Packs/day < 1 Pack Alcohol Alcohol: No Drugs none Review of Systems All Other Systems Reviewed and Negative Constitutional denies fever Eyes denies drainage ENT denies: ear pain, epistaxis, throat pain. Respiratory denies cough, denies wheezing Cardiovascular denies chest pain, denies syncope Gastrointestinal denies abdominal pain, denies vomiting Genitourinary denies: dysuria, frequency, hesitancy, hematuria. Musculoskeletal denies back pain, denies joint pain, denies joint swelling, denies neck pain Skin denies rash Psychiatric/Neurological denies anxiety, denies seizure Physical Exam Vital Signs Vital Signs Date Time Temp Pulse Resp B/P Pulse O2 O2 Flow FiO2 Ox Delivery Rate 05/03 0730 86 14 147/90 97 3 05/03 0656 98.4 88 14 157/82 97 3 05/03 0619 70 18 117/58 97 3 05/03 0555 98.4 91 18 119/94 96 3 05/03 0508 98.4 80 24 111/89 94 2 05/03 0428 98.4 80 24 141/81 97 05/03 0334 80 24 141/81 97 3 05/03 0246 98.4 88 24 119/68 96 05/03 0216 86 24 133/63 96 3 05/03 0146 87 24 161/69 98 3 05/03 0116 89 24 132/75 97 3 05/03 0030 84 24 120/33 98 3 05/02 2351 144 24 122/70 94 3 05/02 2319 146 24 131/66 94 3 05/02 2237 160 24 131/66 94 05/02 2144 98.4 158 24 146/90 94 3 - WBC >12,000 or <4,000 or 10% bands? 2 or more SIRS Criteria Met? B/P:157/82 MAP:108 Creatinine >2.0? UA output<0.5ml/kg/hr for 2 hrs? Platelet count >100,000? Lactate >2.0mmol/1? INR >1.2 or PTT > than 60 sec? Evidence of Organ Dysfunction? Provider documented clinical suspician of infection? N Sepsis Criteria Count: 2 Sepsis Risk: Severe Sepsis Risk General Appearance no apparent distress Eye Exam - bilateral eye PERRL, bilateral eye EOMI Ear, Nose, Throat normal ENT inspection Neck supple Respiratory Status No: respiratory distress. Lung Sounds bilateral: rales. 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 No Results/Orders Laboratory Tests 05/03/17 0140: Troponin I 0.08 H 05/02/17 2210: Opiates Screen NEGATIVE, Urine Methadone Screen NEGATIVE, Barbiturates NEGATIVE, Phencyclidine Screen NEGATIVE, Amphetamines Screen NEGATIVE, Benzodiazepines Screen NEGATIVE, Cocaine Screen NEGATIVE, Marijuana (THC) Screen NEGATIVE 05/02/17 2200: Lactic Acid 2.2 H 05/02/17 2200: Sodium 140, Potassium 4.3, Chloride 98, Carbon Dioxide 38 H, BUN 6 L, Creatinine 0.4 L, Estimated Creat Clear 218 H, Estimated GFR (MDRD) 219, Glucose 83, Calcium 9.2, Total Bilirubin 0.3, AST 25, ALT 20, Alkaline Phosphatase 172 H, Creatine Kinase 52, CK-MB (CK-2) Rel Index 1.7, CK and CKMB Interp 0.9, Troponin I 0.07 H, Total Protein 8.0, Albumin 3.0 L, Globulin 5.0 H, Albumin/Globulin Ratio 0.6 L, WBC 14.8 H, RBC 4.80, Hgb 14.2, Hct 44.2, MCV 92.0, RDW 13.7, Plt Count 289, MPV 7.3 L, Gran % 69.7, Gran # 10.4 H, Lymphocytes % 23.9, Monocytes % 5.4, Eosinophils % 0.6, Basophils % 0.5, Lymphocytes # 3.5, Monocytes # 0.8, Eosinophils # 0.1, Basophils # 0.1, PUBS MCHC 32.2, MCH 29.6, Salicylates 3.5, Acetaminophen 0 L, Alcohols 186 H Current Medication Orders Sig/Santino Start time Last Medication Dose Route Stop Time Status Admin Aspirin 324 MG ONCE ONE 05/03 07 DC 05/03 PO 05/03 0701 0655 Diltiazem HCl 100 MG ONCE ONE 05/03 07 AC 05/03 Sodium Chloride 100 ML IV 05/04 0259 0655 Levalbuterol HCl 0.63 MG ONCE ONE 05/03 0430 DC 05/03 INH 05/03 043 043 Metoprolol Tartrate 2.5 MG ONCE ONE 05/03 0015 DC 05/03 IV 05/03 0016 0011 Metoprolol Tartrate 0 .STK-MED ONE 05/03 0010 DC IV Diltiazem HCl 10 MG ONCE ONE 05/02 2230 DC 05/02 IV 05/02 Diltiazem HCl 100 MG ONCE ONE 05/02 2230 AC 05/02 Sodium Chloride 100 ML IV 05/03 829 223 Sodium Chloride 100 ML .STK-MED ONE 05/02 2229 DC IV Diltiazem HCl 0 .STK-MED ONE 05/028 DC IV Diltiazem HCl 0 .STK-MED ONE 05/02 2227 DC IV Sodium Chloride 1,000 ML .Q1H1M 05/02 2215 DC 05/02 IV 05/02 2315 2210 Sodium Chloride 10 ML PRN PRN 05/02 2215 AC IV 05/03 220 Sodium Chloride 1,000 ML .STK-MED ONE 05/02 2208 DC IV Orders Procedure Date/time Status RT REQUEST XOPENEX NEB 05/03 0430 Active LACTIC ACID FOLLOW UP 05/03 0228 Active TROPONIN I 05/03 0125 Complete ELECTROCARDIOGRAM REQUEST 05/02 220 Active CHEST-PORTABLE 05/02 2200 Active CULTURE, BLOOD 05/02 2200 Active SALICYLATE 05/02 220 Complete LACTIC ACID 05/02 2200 Complete DRUG ABUSE SCREEN (TRIAGE) 05/02 2200 Complete CBC WITH AUTO DIFF 05/02 2200 Complete CARDIAC ENZYMES 05/02 2200 Complete CHEM 12 PROFILE 05/02 2200 Complete ALCOHOL 05/02 2200 Complete Acetaminophen 05/02 2200 Complete 12 LEAD EKG-BESSON (INITIAL) 05/02 UNK Active CM/EKG CM/EKG 1 Monitor Rhythm Atrial Flutter EKG non-spec. ST/[facility] chgs CM/EKG 2 Monitor Rhythm Normal Sinus Rhythm EKG non-spec. ST/[facility] chgs XRAY/CT/US XRAY/CT/US XRAY chest XR interpretation by reviewed by me Xray Results abnormal (copd/lung cancer) Progress ED Progress Notes Date 05/03/17 Time 0752 Comment doing better Departure Departure Time of Disposition 0731 Disposition DC Home or Self Care(routine) Clinical Impression Primary Impression: Atrial flutter Qualifiers: Atrial flutter type: typical Qualified Code: I48.3 - Typical atrial flutter Secondary Impressions: Alcohol intoxication Qualifiers: Complication of substance-induced condition: uncomplicated Qualified Code: F10.920 - Alcohol use, unspecified with intoxication, uncomplicated Lung cancer Qualifiers: Laterality: right Lung location: upper lobe of lung Qualified Code: C34.11 - Malignant neoplasm of upper lobe, right bronchus or lung Condition STABLE Patient Instructions DI for Alcohol Abuse Additional Instructions fluids and see pcp for follow up as outpt Discharge Counseling Counseled pt/family regarding diagnosis, test results, medications/RX, follow up needs, alcohol counseling,> 3min ED Critical Care Critical Care No at [phone]
[2017-05-02 22:18] LABS: HEMOGLOBIN 14.2 g/dL (14.1-18.0); LYMPH # 3.5 K/mm3 (0.7-4.5); LYMPH % 23.9 % (10-50)
[2017-05-02 22:42] LABS: AMPHETAMINES/METAMPHETAMINES NEGATIVE ng/mL (<1000)
--- NOTE | 2017-05-03 07:59 | RADIOLOGY REPORT PS360 ---
CHEST-PORTABLE COMPARISON: PA and lateral chest 04/21/2017 HISTORY: Chest pain TECHNIQUE: Portable upright chest FINDINGS: The lung walls are well expanded. Somewhat ill-defined opacity is again seen in right upper lobe subpleural location in this patient with known lung cancer. The remainder right lung field is clear and left lung field is clear. There are calcified right hilar nodes. There are monitor lines overlying the chest. The costo phrenic angles are clear. There are old healed rib fractures right sixth seventh and eighth ribs posteriorly IMPRESSION: Persistent ill-defined right upper lobe opacity shown to be a mass on recent CT scan and consistent with the diagnosis of lung cancer no definite interval change from the recent studies 04/21/2017
[2017-05-03 10:39] VITALS: BP 147/90
[2017-05-12] MEDS ORDERED: XARELTO10 MG PO (09:16)
== END 2017-05-03 10:40 | disposition home or self-care (01) ==
LOC: ER 21:42
PROVIDERS: Emergency Medicine
DX: I48.3 Typical atrial flutter (principal); F10.920 Alcohol use, unspecified with intoxication, uncomplicated; C34.11 Malignant neoplasm of upper lobe, right bronchus or lung; J44.9 Chronic obstructive pulmonary disease, unspecified; K21.9 Gastro-esophageal reflux disease without esophagitis; I10 Essential (primary) hypertension; E11.9 Type 2 diabetes mellitus without complications; Z72.0 Tobacco use

== ENCOUNTER → 2017-05-19 | Outpatient (CLI) | payer MEDICARE, MEDICAID ==
[~2017-05-19] MED LIST changes: +XARELTO STARTER20 MG PO; +XARELTO10 MG PO
--- NOTE | 2017-05-23 07:48 | RADIOLOGY REPORT PS360 ---
US BIOPSY OR PARACENTESIS, US ORGAN SITE (PELVIS/HIP), US SPINE Ordering Physician: Colton Miguel MD Patient Age: 61 years: Male HISTORY: LUNG CA but no histologic diagnosis yet, palpable LUMBAR MASSevident likely metastatic lesion now for biopsy TECHNIQUE: Ultrasound lumbar COMPARISON. CT abdomen and CT chests from 03/19/2017 FINDINGS AND PROCEDURE: ULTRASOUND soft tissues midline back/ lower thoracic region.; Previous CT abdomen 03/19/2017 identified a soft tissue mass between the T 11 and T12 spinous process. This appears to yield some destruction of the T12 spinous process superiorly. This is a clinically evident mass. Ultrasound doesn't also confirm a solid mass in this region.. The clearly solid mass measuring up to 3.75 cm transverse X 4 cm deep X 3.9 cm in length. Patient was mildly tender here. Relationships to the thecal sac greater than 4 cm deep to the skin were also noted on the initial scan .These images also determined the best approach for access to perform aspiration biopsy of this nodule. Scanning by Dr. Henson . We opted to enter from the transversely from the left aspect of the mass. This provided a clear window ======= ULTRASOUND-GUIDED Jose-Cut core biopsy and FNA BIOPSY at palpable mass midline lower back: Following sterile preparation as well as local skin, and cautious deeper placement of Xylocaine anesthetic . . Under ultrasound guidance 25-gauge hypodermic biopsy needle used for initial 2 FNA passes, was advanced to the nodule and positioned. Needle tip was observed passing into the nodule on each of multipleFNA biopsies passes. Care was taken to sample the more superficial component of this mass as the thecal sac resides just over 4 cm deep to the skin After confirming the character and position of the mass and 19-gauge Jose-Cut core biopsy was performed followed by 2 passes with 16-gauge Jose-Cut core biopsy needle. Good volume specimens obtained for each. & Were sent for both cytology and histology respectively. Patient tolerated procedure well. IMPRESSION: 1. The palpable mass corresponds with a 4 cm solid mass between the T11 and T12 spinous processes. This was imaged on the pulmonary ultrasound and best route for biopsy confirmed 2. FNA biopsy and subsequent Jose-Cut biopsies performed. Of this mass Pathology results: HISTOLOGY. Metastatic moderately differentiated adenocarcinoma compatible with lung primary
== END ==
LOC: RAD 09:32
PROC: 0W9L3ZX Drainage of Lower Back, Percutaneous Approach, Diagnostic (ICD-10-PCS; principal; 2017-05-19)
DX: C34.11 Malignant neoplasm of upper lobe, right bronchus or lung (principal); R22.2 Localized swelling, mass and lump, trunk
CPT/HCPCS: G04061

== ENCOUNTER 2017-05-21 11:57 | Observation (INO) | payer MEDICARE, MEDICAID ==
[~2017-05-21] VITALS: Ht 180.3 cm; Wt 73.5 kg
[~2017-05-21 11:57] MED LIST changes: -XARELTO STARTER20 MG PO
[2017-05-21 12:00] VITALS: BP 111/51
[2017-05-21 12:20] LABS: HEMOGLOBIN 12.9 g/dL (14.1-18.0); LYMPH # 2.1 K/mm3 (0.7-4.5); LYMPH % 18.7 % (10-50)
--- OUTSIDE RECORDS SUMMARY | 2017-05-21 12:32 | External Medical Summary Rpt ---
Author Author , JESUS Organization [facility] Address Unknown Phone [email or web address] Care Team Providers Care Lost And Found Clerk Name Role Phone ALAN PHILLIPS Unavailable Unavailable MANPREET BOSWELL BOND, Unavailable Unavailable [facility] Unavailable Unavailable SERVICE, [facility] Unavailable Unavailable SERVICE, [facility] CHIPPS PAIGE & Unavailable Unavailable DUBILIER, CHIPPS PAIGE & DUBILIER [facility] Unavailable Unavailable [facility], [facility], Unavailable Unavailable [facility], Unavailable Unavailable [facility] Unavailable Unavailable EQUIPMENT, [facility] PINEDA, PINEDA Unavailable Unavailable DALATI, WILLIE A, Unavailable Unavailable DALATI, WILLIE A PHILIP, PHILIP Unavailable Unavailable ROZ BULLOCK EVANS, Unavailable Unavailable [facility] Un[facility] Unavailable [facility], [facility], Unavailable Unavailable [facility] Unavailable Unavailable INC, [facility] Unavailable Unavailable HOSPITAL P, [facility] Unavailable Unavailable [facility], [facility] [place] Unavailable Unavailable [facility], [facility] Un[facility], [facility], Unavailable Unavailable [facility], Unavailable Unavailable [facility] Unavailable Unavailable [facility], [facility] MARIVEL PRADO, Unavailable Unavailable ROZ TADEO JR, RICE, Unavailable Unavailable ROZ Patterson TRUE, TRUE Unavailable Unavailable [facility] Unavailable Unavailable HOSPITALS, [facility] MOY IRVIN, Unavailable Unavailable MOY IRVIN PHILIP N, Unavailable Unavailable AMI GAMBOA Purpose Continuity of Care Document - 10-22-2007 through 2016 Problems Code Diagnosis DOS Provider Status J449 CHRONIC 04-29-2017 [facility] OBSTRUCTIVE MEDICAL PULMONARY DISEASE UNS R0902 HYPOXEMIA 04-29-2017 [facility] MEDICAL E8342 HYPOMAGNESE 04-24-2017 [facility] I10 ESSENTIAL 04-24-2017 [facility] N I2510 ASHD [place] 04-24-2017 [facility] ARTERY W/O HOSPITALS ANGINA [place] I4589 OTHER 04-24-2017 [facility] DISORDERS I480 PAROXYSMAL 04-24-2017 [facility] N I4891 UNSPECIFIED 04-24-2017 [facility] N I4892 UNSPECIFIED 04-24-2017 [facility] I510 CARDIAC 04-24-2017 [facility] DEFECT [facility] ACQUIRED J9611 CHRONIC 04-24-2017 [facility] WITH HYPOXIA J9612 CHRONIC 04-24-2017 [facility] WITH HYPERCAPNIA R000 TACHYCARDIA 04-24-2017 [facility] R911 SOLITARY 04-24-2017 [facility] NODULE [facility] R9431 ABNORMAL 04-24-2017 [facility] E[facility]ARD [facility] IOGRAM [facility] Z9981 DEPENDENCE 04-24-2017 [facility]LE[facility]OSPITALS L OXYGEN J441 CHRONIC 04-08-2017 [facility] OBSTRUCTIVE MEDICAL PULMONARY DZ W/EXACERBAT ION C3490 MALIGNANT 03-26-2017 [facility] P UNS BRONCHUS/RAJAN NG C3411 MALIGNANT 03-19-2017 [facility] RT BRONCHUS/RAJAN NG R590 LOCALIZED 03-19-2017 [facility] ENLARGED [facility]ICAL LYMPH NODES IMAGING ASS R918 OTHER 03-19-2017 [facility] NONSPECIFIC MEDICAL ABNORMAL IMAGING ASS FINDING OF LUNG FIELD Z0389 ENCOUNTER 03-19-2017 [facility] OBSERV OTH MEM HOSP SUSPCT DZ & INC COND RULED OUT M6281 MUSCLE 03-06-2017 [facility] GENERALIZED HOME R010 BENIGN AND 03-06-2017 [facility] INNOCENT [facility] CARDIAC HOME MURMURS R5382 CHRONIC 03-06-2017 [facility] FATIGUE [facility] UNSPECIFIED HOME R55 SYNCOPE AND 03-06-2017 [facility] COLLAPSE CORRECTION D381 NEOPLASM 03-05-2017 [facility] P BRONCHUS & LUNG J439 EMPHYSEMA 02-06-2017 [facility] UNSPECIFIED AMBULANCE SERVICE C34.92 MALIGNANT 02-05-2017 NEOPLASM OF UNSPECIFIED PART [...] Z99.81 DEPENDENCE 02-05-2017 ON SUPPLEMENTA L OXYGEN J189 PNEUMONIA 02-04-2017 [facility] UNSPECIFIED PAIGE & ORGANISM DUBILIER C3431 MALIGNANT 02-03-2017 [facility] P RT BRONCHUS/RAJAN NG J9621 ACUTE & 02-03-2017 [facility] RESPIRATORY [facility] P FAILURE WITH HYPOXIA 19351 COR 06-09-2012 [facility] PRIMARY UNSPEC CARE TYPE VESSEL LONE [place]/EDYTA T 4660 ACUTE 06-09-2012 [facility] BRONCHITIS PRIMARY CARE 47749 CHEST PAIN 06-09-2012 [facility] UNSPECIFIED PRIMARY CARE 96125 OTHER 12-13-2008 [facility] CAVITY AND PSC SINUSES 7840 HEADACHE 12-13-2008 [facility] PSC 4019 UNSPECIFIED 12-07-2008 [facility] ESSENTIAL T HYPERTENSIO N 71392 OBSTRUCTIVE 12-07-2008 [facility] CHRONIC T BRONCHITIS WITHOUT EXACERBAT 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 4720 CHRONIC 10-10-2008 [facility] RHINITIS MOY J 4730 CHRONIC 10-10-2008 [facility] MAXILLARY MOY J SINUSITIS 4731 CHRONIC 10-10-2008 [facility] FRONTAL MOY J SINUSITIS 4732 CHRONIC 10-10-2008 [facility] ETHMOIDAL MOY J SINUSITIS 87847 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 JENNY BULLOCK 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 96894 NONEXUDATIV 09-09-2008 Matias BULLOCK SENILE ROZ MACULAR DEGENERATIO N RETINA 36111 UNSPECIFIED 09-09-2008 KOBE CORNEAL ROZ OPACITY 2722 MIXED 09-08-2008 [facility] 4779 ALLERGIC 09-08-2008 JUNIORROZ RHINITIS T CAUSE UNSPECIFIED 28890 PAIN IN 09-08-2008 [facility] JOINT, T SHOULDER REGION V7644 SPECIAL 09-08-2008 [facility] [place] [facility] MALIGNANT NEOPLASM OF PROSTATE 3502 ATYPICAL 07-08-2008 [facility] FACE PAIN MOY Mccollum 470 DEVIATED 07-08-2008 [facility] NASAL MOY Mccollum SEPTUM 4780 HYPERTROPHY 07-08-2008 [facility] OF NASAL MOY J TURBINATES 4718 OTHER POLYP 07-05-[address] [place] [address] [facility] [facility] 496 CHRONIC 07-05-2008 [facility] IMAGING PSC OBSTRUCTION NEC 07887 ESOPHAGEAL 07-05-[address] [place] [address] [facility] V5869 LONG-TERM 07-05-2008 [place] (CURRENT) [facility] USE OF MEDICAL OTHER CENT MEDICATIONS 2356 NEOPLASM OF 02-22-2008 [facility] [place] 05003 OTHER VOICE 02-22-2008 DENISE IRVIN RESONANCE DISORDERS V1582 PERS HX 02-22-2008 [facility] TOBACCO USE MOY Mccollum PRES[facility]ING [facility] 2724 OTHER AND 11-02-2007 IGNAC[facility] PACHECOSON UNSPECIFIED T HYPERLIPIDE ALBA C34.90 MALIGNANT NEOPLASM [...] ACUTE AND CHRONIC RESPIRATORY FAILURE WITH HYPOXIA R22.2 LOCALIZED SWELLING, MASS AND LUMP, TRUNK Z72.0 TOBACCO USE Allergies, Adverse Reactions, Alerts Adverse Reaction to Substance Substance Reaction Severity MORPHINE Anxiety PENTAZOCINE LACTATE Anxiety Results Labs Lab Lab Date Result Refere Interp Status Commen Order Detail nces retati t Range on Magnesium [facility] (04-25-2017 03:39) Magnesi 1.8 1.9-2.4 complet um 017 mg/dL ed SerPl-m 03:39 Cnc T4 Free SerPl-mCnc (04-25-2017 03:39) T4 Free 1.1 0.8-1.7 complet 017 ng/dL ed SerPl-m 03:39 Cnc TSH SerPl DL<=0.005 mIU/L-aCnc (04-25-2017 03:39) TSH 1.44 0.4-4.2 complet SerPl 017 uIU/mL ed DL<=0.0 03:39 05 mIU/L-a Cnc Ca-I SerPl ISE-sCnc (04-24-2017 16:13) Ca-I 4.7 4.6-5.1 complet SerPl 017 mg/dL ed ISE-sCn 16:13 c Magnesium SerPl-mCnc (04-24-2017 16:13) Magnesi 1.5 1.9-2.4 complet um 017 mg/dL ed SerPl-m 16:13 Cnc Phosphate SerPl-mCnc (04-24-2017 16:13) Phospha 3.0 2.5-4.5 complet te 017 mg/dL ed SerPl-m 16:13 Cnc Vit B12 (06-15-2013 11:39) Vitamin 304 211-911 complet B12, 013 pg/mL ed Level 11:39 Glyhm (06-15-2013 11:39) Hemoglo 5.9 % 4.2-6.3 complet bin A1c 013 ed 11:39 LIPID PROFILE (12-17-2011 05:13) CHOLEST 12-16-2 2.0 Normal complet PAMELA/HD 012 ed L RATIO 05:13 NON-HDL 12-16-2 59 Normal complet 012 mg/dL ed CHOLEST 05:13 PAMELA VLDL 12-16-2 19 Normal complet CHOLEST 012 mg/dL ed PAMELA 05:13 LDL 12-16-2 40 <100 Normal complet CHOLEST 012 mg/dL ed PAMELA 05:13 HDL 12-16-2 62 >39 Normal complet CHOLEST 012 mg/dL ed PAMELA 05:13 TRIGLYC 12-16-2 96 <150 Normal complet ERIDES 012 mg/dL ed 05:13 CHOLEST 12-16-2 121 115-200 Normal complet PAMELA 012 mg/dL [...] CBC WITH AUTO DIFFERENTIAL (12-17-2011 05:13) BASO, 2 0.02 0.00-0. Normal complet ABSOLUT 012 THOU/uL 20 ed E 05:13 EOS, 2 0.15 0.00-0. Normal complet ABSOLUT 012 THOU/uL 40 ed E 05:13 MONO, 2 0.55 0.00-1. Normal complet ABSOLUT 012 THOU/uL 00 ed E 05:13 LYMPH, 2 1.73 1.00-4. Normal complet ABSOLUT 012 THOU/uL [...] complet RIT 012 .0 ed 05:13 HEMOGLO 12-16- 14.1 14.0-18 Normal complet BIN 012 g/dL .0 ed 05:13 RED 12-16-2 4.45 4.60-6. Below complet BLOOD 012 MILL/uL 20 low ed COUNT 05:13 normal WHITE 12-16- 4.49 4.00-11 Normal complet BLOOD 012 THOU/uL .00 ed COUNT 05:13 CREATINE KINASE (12-16-2011 09:25) CREATIN 12-15- 60 U/L 55-170 Normal complet E 012 ed KINASE 09:25 LIPID PROFILE (12-16-2011 09:25) CHOLEST 12-15- 1.9 Normal complet PAMELA/HD 012 ed L RATIO 09:25 NON-HDL 12-15- 86 Normal complet 012 mg/dL ed CHOLEST 09:25 PAMELA VLDL 23 Normal complet CHOLEST 012 mg/dL ed PAMELA 09:25 LDL -12-2 63 <100 Normal complet CHOLEST 012 mg/dL ed PAMELA 09:25 HDL 12-2 92 >39 Normal complet CHOLEST 012 mg/dL ed PAMELA 09:25 TRIGLYC 12-2 116 <150 Normal complet ERIDES 012 mg/dL ed 09:25 CHOLEST -12-2 178 115-200 Normal complet PAMELA 012 mg/dL ed 09:25 CK-MB (INITIAL) (12-16-2011 09:25) CK-MB -12-2 1.34 <=2.37 Normal complet (INITIA 012 ng/mL ed L) 09:25 CBC WITH AUTO DIFFERENTIAL (12-16-2011 09:25) BASO, -12-2 0.03 0.00-0. Normal complet ABSOLUT 012 THOU/uL 20 ed E 09:25 EOS, 03-12-2 0.17 0.00-0. Normal complet ABSOLUT 012 THOU/uL 40 ed E 09:25 MONO, -12-2 0.68 0.00-1. Normal complet ABSOLUT 012 THOU/uL 00 ed E 09:25 LYMPH, -12-2 2.96 1.00-4. Normal complet ABSOLUT 012 THOU/uL 00 ed E 09:25 NEUTROP 12-2 2.69 1.50-7. Normal complet HIL, 012 THOU/uL 00 ed ABSOLUT 09:25 E BASO % -12-2 0.5 % 0.0-2.0 Normal complet 012 ed 09:25 EOS % -12-2 2.6 % 0.0-6.0 Normal complet 012 ed 09:25 MONO % -12-2 10.4 % 2.0-12. Normal complet 012 0 ed 09:25 LYMPH % -12-2 45.2 % 12.0-44 Above complet 012 .0 high ed 09:25 normal NEUTROP -12-2 41.0 % 47.0-76 Below complet HILS % 012 .0 low ed 09:25 normal IMM -12-2 < 3 % <3 Normal complet GRANULO 012 ed CYTE % 09:25 MEAN 12-15-2 10.5 fL 8.6-11. Normal complet PLATELE 012 7 ed T 09:25 VOLUME PLATELE 03-12-2 122 150-375 Below complet T COUNT 012 THOU/uL low ed 09:25 normal RED 12-15- 13.5 % 11.5-14 Normal complet CELL 012 .5 ed DISTRIB 09:25 UTION WIDTH MEAN 34.5 31.0-36 Normal complet CORPUSC 012 g/dL .0 ed ULAR 09:25 HGB CONC MEAN 32.3 pg 26.0-33 Normal complet CORPUSC 012 .0 ed ULAR 09:25 HEMOGLO BIN MEAN 93.5 fL 80.0-94 Normal complet CORPUSC 012 .0 ed ULAR 09:25 VOLUME HEMATOC 49.0 % 40.0-54 Normal complet RIT 012 .0 ed 09:25 HEMOGLO 16.9 14.0-18 Normal complet BIN 012 g/dL .0 ed 09:25 RED 12-15- 5.24 4.60-6. Normal complet BLOOD 012 MILL/uL 20 ed COUNT 09:25 WHITE 12-15- 6.55 4.00-11 Normal complet BLOOD 012 THOU/uL .00 ed COUNT 09:25 BLOOD CULTURE (12-15-2011 10:10) BLOOD NO [...] complet 012 0 ed 09:43 LYMPH % 03-11-2 36.2 % 12.0-44 Normal complet 012 .0 ed 09:43 NEUTROP 03-11-2 53.4 % 47.0-76 Normal complet HILS % 012 .0 ed 09:43 MEAN -11-2 10.0 fL 8.6-11. Normal complet PLATELE 012 7 ed T 09:43 VOLUME PLATELE -11-2 146 150-375 Below complet T COUNT 012 THOU/uL low ed 09:43 normal RED -11-2 13.7 % 11.5-14 Normal complet CELL 012 .5 ed DISTRIB 09:43 UTION WIDTH MEAN -11-2 34.9 31.0-36 Normal complet CORPUSC 012 g/dL .0 ed ULAR 09:43 HGB CONC MEAN 11-2 31.7 pg 26.0-33 Normal complet CORPUSC 012 .0 ed ULAR 09:43 HEMOGLO BIN MEAN 11-2 90.8 fL 80.0-94 Normal complet CORPUSC 012 .0 ed ULAR 09:43 VOLUME HEMATOC 03-11-2 53.0 % 40.0-54 Normal complet RIT 012 .0 ed 09:43 HEMOGLO 03-11-2 18.5 14.0-18 Above complet BIN 012 g/dL .0 high ed 09:43 normal RED 03-11-2 5.84 4.60-6. Normal complet BLOOD 012 MILL/uL [...] Procedures Procedure DOS Code Location Performer Comment PORTABLE E0443 [facility] O2 7 MEDICAL MEDICAL CONTENTS GASEOUS 1 MO SUPPLY=1 UNIT RADIOLOGI [address] [place] TRUE C 7 MEDICAL EXAMINATI SERV ON CHEST FOUNDATIO SINGLE N VIEW FRONTAL ECG 33291 DEMETRA OCLEMAN ROUTINE 7 MEDICAL ECG SERV W/LEAST FOUNDATIO 12 LDS N I&R ONLY NEBULIZER E0570 [facility] WITH 7 MEDICAL MEDICAL COMPRESSO R HUMDIFIR E0562 [facility] HEATED 7 MEDICAL MEDICAL USED EQUIPMENT EQUIPMENT W/POS ARWAY PRESSURE DEVICE CT THORAX 86127 [facility] 7 [facility] W/CONTRAS INC INC T MATERIAL LOCM Q9967 [facility] CARTER 300-399 7 [facility] MG/ML INC [place] [address] [facility] CARTER ABDOMEN & 7 [facility] PELVIS INC INC W/CONTRAS T MATERIAL PORTABLE E0443 [facility] TURNER O2 7 MEDICAL MEDICAL CONTENTS GASEOUS 1 MO SUPPLY=1 UNIT CREATININ 26380 COMBINED COMBINED E BLOOD 7 PHYSIC[place] [address] COMBINED COMBINED UREA 7 PHYSICIAN PHYSICIAN NITROGEN S LA S LA QUANTITAT AURELIA NEBULIZER E0570 [facility] WITH 7 MEDICAL MEDICAL COMPRESSO R HUMDIFIR E0562 [facility] HEATED 7 MEDICAL MEDICAL USED EQUIPMENT EQUIPMENT W/POS ARWAY PRESSURE DEVICE ADMN SET A7005 [facility] W/SM VOL 7 MEDICAL MEDICAL NONFILTR NEBULIZR NON-DISPB L AMBULANCE A0428 [facility] SERVICE 7 AMBULANCE AMBULANCE BLS SERVICE SERVICE NONEMERGE NCY TRANSPORT NEBULIZER E0570 [facility] WITH 7 MEDICAL MEDICAL COMPRESSO R GROUND A0425 [facility] MILEAGE 7 AMBULANCE AMBULANCE PER SERVICE SERVICE STATUTE MILE ECG 70398 RAUL CARTER ROUTINE 7 [facility] W/LEAST P P 12 L[place] [address] [facility] PICKLESIM SURG 7 PAIGE & ER JR PATHOLOGY DUBILIER GROSS&DONNY ROSCOPIC EXAM CYTP 64042 [facility] PICKLESIM SLCTV 7 PAIGE & ER JR CELL DUBILIER ENHANCEME NT INTERPJ XCPT C/V INITIAL 05525 [facility] 7 [facility] [address] THORAX 06678 [facility] PIN[facility]A 7 MEDICAL W/CONTRAS IMAGING T ASS MATERIAL MRI BRAIN 94272 JASON Burnham BRAIN 9 [facility] STEM W/O REGIONAL REGIONAL W/CONTRAS MEDIC MEDIC T MATERIAL NASAL 70244 [facility] 9 , MOY VENEGAS DIAGNOSTI C UNI/BI SPX XTRNL 70510 KOBE BULLOCK, OCULAR 8 ROZ COURTNEY PHOTOG W/I&R DOCMT MEDICAL PROGRE FUNDUS 04755 KOBE BULLOCK PHOTOGRAP 8 ROZ COURTNEY HY W/INTERPR ETATION & REPORT COLLECTIO 33696 RICE, RICE, N VENOUS 8 ROZ T ROZ T BLOOD VENIPUNCT URE COMPREHEN 57840 [facility] SIVE 8 [facility] METABOLIC PANEL LIPID 40124 [facility] PANEL 8 [facility] Cnekt [facility] PROSTATE G0103 [facility] CANCER 8 [facility] Cnekt [facility] SCREENING ; PSA TEST HEMOGLOBI 97944 [facility] N 8 [facility] GLYCOSYLA NU A1C NASAL 01786 [facility] ENDOSCOPY 8 , MOY VENEGAS DIAGNOSTI C UNI/BI SPX NASAL/SIN 74217 [facility] NDNV 8 , MOY VENEGAS SURG W/TELLY BULLOSA RESECTION INJECTION J2250 [address] [place] [facility] HCL PER CENT CENT 1 MG NASAL/SIN 92775 [facility] NDNV 8 REGIONAL REGIONAL W/FRONTAL MEDICAL MEDICAL SINUS CENT CENT EXPLORATI ON NSL/SINUS 47096 [facility] NDSC MAX [address] [facility] REGIONAL ANTROST MEDICAL MEDICAL W/RMVL CENT CENT TISS MAX SINUS NASAL/SIN [address] REGIONAL ENDOSCOPY MEDICAL MEDICAL CENT CENT W/ETHMOID ECTOMY TOTAL SUBMUCOUS 89319 [facility] RESCJ 8 REGIONAL REGIONAL INFERIOR MEDICAL MEDICAL TURBINATE CENT CENT PRTL/COMP L NASAL/SIN 48728 [facility] US 8 , MOY Mccollum , MOY Mccollum ENDOSCOPY W/ETHMOID ECTOMY PARTIAL RINGERS J7120 [facility] LACTATE 8 REGIONAL REGIONAL INFUSION MEDICAL MEDICAL UP TO CENT CENT 1000 CC INJECTION J2001 [facility] 8 REGIONAL REGIONAL LIDOCAINE MEDICAL MEDICAL HCL CENT CENT INTRAVENO US INFUS 10 MG INJECTION J1100 [facility] 8 REGIONAL REGIONAL DEXAMETHO MEDICAL MEDICAL SONE CENT CENT SODIUM PHOSPHATE 1 MG SEPTOPLAS 17197 [facility] TY/SUBMUC 8 REGIONAL REGIONAL OUS MEDICAL MEDICAL RESECJ CENT CENT W/WO CARTILAGE GRF INFUSION J7030 [facility] NORMAL 8 REGIONAL REGIONAL SALINE MEDICAL MEDICAL SOLUTION CENT CENT 1000 CC INJECTION J3010 [facility] FENTANYL 8 REGIONAL REGIONAL CITRATE MEDICAL MEDICAL 0.1 MG CENT CENT INJECTION J2710 [facility] 8 REGIONAL REGIONAL NEOSTIGMI MEDICAL MEDICAL NE CENT CENT METHYLSUL FATE UP TO 0.5 MG INJECTION J2405 [facility] 8 REGIONAL REGIONAL ONDANSETR MEDICAL MEDICAL ON HCL CENT CENT PER 1 MG INJECTION J2370 [facility] 8 REGIONAL REGIONAL PHENYLEPH MEDICAL MEDICAL RINE HCL CENT CENT UP TO 1 ML FLUOROSCO 77463 [facility] PY SPX UP 8 REGIONAL REGIONAL TO 1 MEDICAL MEDICAL HOUR CENT CENT PHYS/[place] [address] [facility] SURG 8 REGIONAL REGIONAL PATHOLOGY MEDICAL MEDICAL CENT CENT GROSS&DONNY ROSCOPIC EXAM COLLECTIO 93782 [facility] N VENOUS 8 REGIONAL REGIONAL BLOOD MEDICAL MEDICAL VENIPUNCT CENT CENT URE THROMBOPL 59649 [facility] ASTIN 8 REGIONAL REGIONAL TIME MEDICAL MEDICAL PARTIAL CENT CENT PLASMA/WH OLE BLOOD PROTHROMB 18004 [facility] IN TIME 8 REGIONAL REGIONAL MEDICAL MEDICAL CENT CENT ECG 46385 [facility] ROUTINE 8 REGIONAL REGIONAL ECG MEDICAL MEDICAL W/LEAST CENT CENT 12 LDS TRCG ONLY W/O I&R RADIOLOGI 16187 [facility] C EXAM 8 REGIONAL REGIONAL CHEST 2 MEDICAL MEDICAL VIEWS CENT CENT FRONTAL&L ATERAL BLOOD 30949 [facility] COUNT 8 REGIONAL REGIONAL COMPLETE MEDICAL MEDICAL AUTO&AUTO CENT CENT DIFRNTL WBC DRUG 98159 [facility] ASSAY 8 REGIONAL REGIONAL VALPROIC MEDICAL MEDICAL DIPROPYLA CENT CENT CETIC ACID TOTAL ECG 17707 [place] DALAT[facility], ROUTINE 8 REGIONAL WILLIE A ECG MEDICAL W/LEAST CENTER 12 LDS I&[place] [address] [facility] MAXILLOFA 8 REGIONAL REGIONAL CIAL W/O MEDICAL MEDICAL CONTRAST CENT CENT MATERIAL LARYNGOSC 04124 [facility] 8 , MOY Mccollum , [...] Date Code Location Performer Type Date HOSPITAL [facility] - 7 7 [facility] OFFICE 53375 [facility] OUTPATIEN 7 7 [facility] 15 P MINUTES HOSPITAL [facility] - 7 7 [facility] INPATIENT 7 7 [facility] OFFICE 35388 [facility] PHILIP OUTPATIEN 7 7 [facility] [address] [facility] INPATIENT 7 7 [facility] OFFICE 74286 [facility] PR[facility] T VISIT CARE 15 MINUTES [facility]IN[facility] 2 2 [facility] [place] [address] 9 [facility] T MEDIC OFFICE 05355 [facility] OUTPATIEN 9 9 ROZ Patterson T VISIT 15 MINUTES OFFICE 65743 KOBE BULLOCK OUTLUANNE 8 8 ROZ Patterson VISIT 25 MINUTES OFFICE 46366 [facility] OUTPATIEN 8 8 ROZ Patterson T VISIT 10 MINUTES [facility] [place] [address] 8 [facility] C[facility] OFF[facility] 48272 JUNIOR PACHECO, CONSULTARELI 8 8 ROZ Patterson ION NEW/ESTAB PATIENT 60 MIN [facility] [place] [address] 8 [facility] 68257 [facility] 8 8 , MOY VENEGAS T NEW 30 MINUTES OFFICE 44318 [facility] OUTPATIEN 8 8 ROZ Patterson T VISIT 15 MINUTES
--- OUTSIDE RECORDS SUMMARY | 2017-05-21 12:32 | External Medical Summary Rpt ---
Author Author , JESUS Organization [facility] Address Unknown Phone [email or web address] Funding Care Team Providers Care Pie Dough Roller Name Role Phone ALAN PHILLIPS Unavailable Unavailable [...] Unavailable ROZ BULLOCK EVANS, Unavailable Unavailable [facility] Un[facility], [facility], Unavailable Unavailable [facility] Unavailable Unavailable INC, [facility] Unavailable Unavailable HOSPITAL P, [facility] Unavailable [facility], [facility] [place] Un[place] Un[place] [facility], [facility], Unavailable Unavailable [facility], [facility]available Unavailable [facility] Unavailable Unavailable MEDIC, [facility] MARIVEL PRADO, Unavailable Unavailable ROZ TADEO JR, RICE, Unavailable Unavailable ROZ Patterson TRUE, TRUE Unavailable Unavailable [facility] Unavailable Unavailable HOSPITALS, [facility] MOY IRVIN, Unavailable Unavailable MOY IRVIN PHILIP N, Unavailable Unavailable AMI GAMBOA Purpose Continuity of Care Document - 10-22-2007 through 2016 Problems Code Diagnosis DOS Provider Status J449 CHRONIC 04-29-2017 [facility] OBSTRUCTIVE MEDICAL PULMONARY DISEASE UNS R0902 HYPOXEMIA 04-29-2017 [facility] MEDICAL E8342 HYPOMAGNESE 04-24-2017 [facility] I10 ESSENTIAL 04-24-2017 [facility] N I2510 ASHD TEJON 04-24-2017 [facility] ARTERY W/O HOSPITALS ANGINA [...] DZ W/EXACERBAT ION C3490 MALIGNANT 03-26-2017 [facility] P UNS BRONCHUS/RAJAN NG C3411 MALIGNANT 03-19-2017 [facility] RT BRONCHUS/RAJAN NG R590 LOCALIZED 03-19-2017 [facility] ENLARGED [facility] LYMPH NODES [facility] ASS R918 OTHER 03-19-2017 [facility] NONSPECIFIC [facility]ICAL ABNORMAL [facility]AG[facility] ASS FINDING OF LUNG FIELD Z0389 ENCOUNTER 03-19-2017 [facility] SUSPCT DZ & INC COND RULED OUT M6281 MUSCLE 03-06-2017 [facility] GENERALIZED HOME R010 BENIGN AND 03-06-2017 [facility] INNOCENT [facility] CARDIAC HOME MURMURS R5382 CHRONIC 03-06-2017 [facility] UNSPECIFIED HOME R55 SYNCOPE AND 03-06-2017 [facility] D381 NEOPLASM 03-05-2017 [facility] P BRONCHUS & LUNG J439 EMPHYSEMA 02-06-2017 [...] PAIGE & ORGANISM DUBILIER C3431 MALIGNANT 02-03-2017 [facility] P RT BRONCHUS/RAJAN NG J9621 ACUTE & 02-03-2017 [facility] RESPIRATORY [facility] P FAILURE WITH HYPOXIA 30063 COR 06-09-2012 [facility] UNSPEC CARE TYPE VESSEL TEJON/EDYTA T 4660 ACUTE 06-09-2012 [facility] BRONCHITIS [facility]IMARY CARE 12492 CHEST PAIN 06-09-2012 [facility] UNSPECIFIED [facility]IMARY CARE 48673 OTHER 12-13-2008 [facility] CAVITY AND PSC SINUSES 7840 HEADACHE 12-13-2008 [facility] PSC 4019 UNSPECIFIED 12-07-2008 [facility] ESSENTIAL T HYPERTENSIO N 00104 OBSTRUCTIVE 12-07-2008 [facility] CHRONIC T BRONCHITIS WITHOUT EXACERBAT 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 4720 CHRONIC 10-10-2008 [facility] RHINITIS MOY J 4730 CHRONIC 10-10-2008 [facility] MAXILLARY MOY J SINUSITIS 4731 CHRONIC 10-10-2008 [facility] FRONTAL MOY J SINUSITIS 4732 CHRONIC 10-10-2008 [facility] ETHMOIDAL MOY J SINUSITIS 76695 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 JENNY BULLOCK 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 09442 NONEXUDATIV 09-09-2008 Matias BULLOCK SENILE ROZ MACULAR DEGENERATIO N RETINA 04775 UNSPECIFIED 09-09-2008 KOBE CORNEAL ROZ OPACITY 2722 MIXED 09-08-2008 [facility] ALBA 4779 ALLERGIC 09-08-2008 JUNIORROZ RHINITIS T CAUSE UNSPECIFIED 48578 PAIN IN 09-08-2008 [facility] JOINT, T SHOULDER REGION V7644 SPECIAL 09-08-2008 [facility] MALIGNANT NEOPLASM OF PROSTATE 3502 ATYPICAL 07-08-2008 [facility] FACE PAIN MOY Mccollum 470 DEVIATED 07-08-2008 [facility] NASAL MOY Mccollum SEPTUM 4780 HYPERTROPHY 07-08-2008 [facility] OF NASAL MOY J TURBINATES 4718 OTHER POLYP 07-05-2008 [place] [facility] 496 CHRONIC 07-05-2008 [facility] AIRWAY IMAGING PSC OBSTRUCTION NEC 34803 ESOPHAGEAL 07-05-2008 [place] REFLUX [facility]ICAL CENT V5869 LONG-TERM 07-05-2008 [place] (CURRENT) [facility] USE OF MEDICAL OTHER CENT MEDICATIONS 2356 NEOPLASM OF 02-22-2008 [facility] [place] 01532 OTHER VOICE 02-22-2008 DENISE IRVIN RESONANCE DISORDERS [...] Detail nces retati t Range on Magnesium [facility] (04-25-2017 03:39) Magnesi 1.8 1.9-2.4 complet um [...] CONTENTS GASEOUS 1 MO SUPPLY=1 UNIT RADIOLOGI [address] [place] TRUE C 7 MEDICAL EXAMINATI SERV ON CHEST FOUNDATIO SINGLE N VIEW FRONTAL ECG 80722 DEMETRA COLEMAN ROUTINE 7 MEDICAL ECG SERV W/LEAST FOUNDATIO 12 LDS N I&R ONLY NEBULIZER E0570 TURNER TURNER WITH 7 MEDICAL MEDICAL COMPRESSO R HUMDIFIR E0562 TURNER TURNER HEATED 7 MEDICAL MEDICAL USED EQUIPMENT EQUIPMENT W/POS ARWAY PRESSURE DEVICE CT THORAX 00230 [facility] W/CONTRAS INC INC T MATERIAL LOCM Q9967 [facility] CARTER 300-399 7 [facility] MG/ML INC [place] [address] [facility] CARTER ABDOMEN & 7 [facility] PELVIS INC INC W/CONTRAS T MATERIAL PORTABLE E0443 TURNER TURNER O2 7 MEDICAL MEDICAL CONTENTS GASEOUS 1 MO SUPPLY=1 UNIT CREATININ 51166 COMBINED COMBINED E BLOOD 7 [place] [address] COMBINED COMBINED UREA 7 PHYSICIAN PHYSICIAN NITROGEN S LA S LA QUANTITAT AURELIA NEBULIZER E0570 TURNER TURNER WITH 7 MEDICAL MEDICAL COMPRESSO R HUMDIFIR E0562 TURNER TURNER HEATED 7 MEDICAL MEDICAL USED EQUIPMENT EQUIPMENT W/POS ARWAY PRESSURE DEVICE ADMN SET A7005 TURNER TURNER W/SM VOL 7 MEDICAL MEDICAL NONFILTR NEBULIZR NON-DISPB L AMBULANCE A0428 [facility] SERVICE 7 AMBULANCE AMBULANCE BLS SERVICE SERVICE NONEMERGE NCY TRANSPORT NEBULIZER E0570 TURNER TURNER WITH 7 MEDICAL MEDICAL COMPRESSO R GROUND A0425 [facility] MILEAGE 7 AMBULANCE AMBULANCE PER SERVICE SERVICE STATUTE MILE ECG 87727 RA[facility] CARTER ROUTINE 7 [facility] W/LEAST P P 12 [place] [address] [facility] SURG 7 PAIGE & ER JR PATHOLOGY DUBILIER GROSS&DONNY ROSCOPIC EXAM CYTP 17803 [facility] SLCTV 7 PAIGE & ER JR CELL DUBILIER ENHANCEME NT INTERPJ XCPT C/V INITIAL 50011 [facility] 7 [facility] [address] THORAX 94717 [facility] 7 MEDICAL W/CONTRAS IMAGING T ASS MATERIAL MRI BRAIN 25975 JASON Burnham BRAIN 9 [facility] W/O REGIONAL REGIONAL W/CONTRAS MEDIC MEDIC T MATERIAL NASAL 68502 [facility] ENDOSCOPY 9 , MOY VENEGAS DIAGNOSTI C UNI/BI SPX XTRNL 56704 KOBE BULLOCK, OCULAR 8 ROZ COURTNEY PHOTOG W/I&R DOCMT MEDICAL PROGRE FUNDUS 64218 KOBE BULLOCK PHOTOGRAP 8 ROZ COURTNEY HY W/INTERPR ETATION & REPORT COLLECTIO 12742 RICE, RICE, N VENOUS 8 ROZ T ROZ T BLOOD VENIPUNCT URE COMPREHEN 19492 [facility] SIVE 8 [facility] METABOLIC PANEL LIPID 62346 [facility] PANEL 8 [facility] Complete Solar [facility] PROSTATE G0103 [facility] CANCER 8 [facility] Complete Solar [facility] SCREENING ; PSA TEST HEMOGLOBI 02174 [facility] N 8 [facility] GLYCOSYLA NU A1C NASAL 13666 [facility] ENDOSCOPY 8 , MOY VENEGAS DIAGNOSTI C UNI/BI SPX NASAL/SIN 62052 [facility] NDPA 8 , MOY VENEGAS SURG W/TELLY BULLOSA RESECTION INJECTION J2250 [address] [facility] HCL PER CENT CENT 1 MG NASAL/SIN 98383 [facility] NDPA 8 REGIONAL REGIONAL W/FRONTAL MEDICAL MEDICAL SINUS CENT CENT EXPLORATI ON NSL/SINUS 86328 [facility] NDSC MAX 8 [facility] REGIONAL ANTROST MEDICAL MEDICAL W/RMVL CENT CENT TISS MAX SINUS NASAL/SIN [address] REGIONAL ENDOSCOPY MEDICAL MEDICAL CENT CENT W/ETHMOID ECTOMY TOTAL SUBMUCOUS 88762 [facility] RESCJ 8 REGIONAL REGIONAL INFERIOR MEDICAL MEDICAL TURBINATE CENT CENT PRTL/COMP L NASAL/SIN 01305 [facility] US 8 , MOY Mccollum , MOY Mccollum ENDOSCOPY W/ETHMOID ECTOMY PARTIAL RINGERS J7120 [facility] LACTATE 8 REGIONAL REGIONAL INFUSION MEDICAL MEDICAL UP TO CENT CENT 1000 CC INJECTION J2001 [facility] 8 REGIONAL REGIONAL LIDOCAINE MEDICAL MEDICAL HCL CENT CENT INTRAVENO US INFUS 10 MG INJECTION J1100 [facility] 8 REGIONAL REGIONAL DEXAMETHO MEDICAL MEDICAL SONE CENT CENT SODIUM PHOSPHATE 1 MG SEPTOPLAS 89020 [facility] TY/SUBMUC 8 REGIONAL REGIONAL OUS MEDICAL MEDICAL RESECJ CENT CENT W/WO CARTILAGE GRF INFUSION J7030 [facility] NORMAL 8 REGIONAL REGIONAL SALINE MEDICAL MEDICAL SOLUTION CENT CENT 1000 CC INJECTION J3010 [facility] FENTANYL 8 REGIONAL REGIONAL CITRATE MEDICAL MEDICAL 0.1 MG CENT CENT INJECTION J2710 [facility] 8 REGIONAL REGIONAL NEOSTIGMI MEDICAL MEDICAL NE CENT CENT METHYLSUL FATE UP TO 0.5 MG INJECTION J2405 [facility] 8 REGIONAL REGIONAL ONDANSETR MEDICAL MEDICAL ON HCL CENT CENT PER 1 MG INJECTION J2370 [facility] 8 REGIONAL REGIONAL PHENYLEPH MEDICAL MEDICAL RINE HCL CENT CENT UP TO 1 ML FLUOROSCO 55409 [facility] PY SPX UP 8 REGIONAL REGIONAL TO 1 MEDICAL MEDICAL HOUR CENT CENT PHYS/[place] [address] [facility] SURG 8 REGIONAL REGIONAL PATHOLOGY MEDICAL MEDICAL CENT CENT GROSS&DONNY ROSCOPIC EXAM COLLECTIO 71767 [facility] N VENOUS 8 REGIONAL REGIONAL BLOOD MEDICAL MEDICAL VENIPUNCT CENT CENT URE THROMBOPL 47609 [facility] ASTIN 8 REGIONAL REGIONAL TIME MEDICAL MEDICAL PARTIAL CENT CENT PLASMA/WH OLE BLOOD PROTHROMB 16143 [facility] IN TIME 8 REGIONAL REGIONAL MEDICAL MEDICAL CENT CENT ECG 30507 [facility] ROUTINE 8 REGIONAL REGIONAL ECG MEDICAL MEDICAL W/LEAST CENT CENT 12 LDS TRCG ONLY W/O I&R RADIOLOGI 91079 [facility] C EXAM 8 REGIONAL REGIONAL CHEST 2 MEDICAL MEDICAL VIEWS CENT CENT FRONTAL&L ATERAL BLOOD 01738 [facility] COUNT 8 REGIONAL REGIONAL COMPLETE MEDICAL MEDICAL AUTO&AUTO CENT CENT DIFRNTL WBC DRUG 26464 [facility] ASSAY 8 REGIONAL REGIONAL VALPROIC MEDICAL MEDICAL DIPROPYLA CENT CENT CETIC ACID TOTAL ECG 80604 [place], ROUTINE 8 REGIONAL WILLIE A ECG MEDICAL W/LEAST CENTER 12 LDS I&[place] [address] [facility] MAXILLOFA 8 REGIONAL REGIONAL CIAL W/O MEDICAL MEDICAL CONTRAST CENT CENT MATERIAL LARYNGOSC 41217 [facility] 8 , MOY Mccollum , [...] 7 7 [facility] OFF[facility] 00765 [facility] OUTPATIEN 7 7 [facility] 15 P MINUTES HOSPITAL [facility] - 7 7 [facility] OUTPATIEN INC [facility] INPATIENT 7 7 [facility] OFFICE 26485 [facility] PHILIP OUTPATIEN 7 7 [facility] 10 P MINUTES [facility] INPATIENT 7 7 [facility] OFF[facility] 34935 [facility] 2 PRIMARY T VISIT CARE 15 MINUTES [facility]IN[facility], [facility] 2 2 [facility] [place] [address] 9 [facility] T MEDIC OFFICE 81269 [facility] OUTPATIEN 9 9 ROZ Patterson T VISIT 15 MINUTES OFFICE 48200 KOBE BULLOCK OUTLUANNE 8 8 ROZ Patterson VISIT 25 MINUTES OFFICE 03168 [facility] OUTPATIEN 8 8 ROZ Patterson T VISIT 10 MINUTES [facility] [place] [address] 8 [facility] MEDICAL T CENT OFFICE 80362 J[facility], CONSULTARELI 8 8 ROZ Patterson ION NEW/ESTAB PATIENT 60 MIN [facility] [place] [address] 8 [facility] MEDICAL T CENT OFFICE 19920 [facility] 8 8 , MOY VENEGAS T NEW 30 MINUTES OFFICE 25991 [facility] OUTPATIEN 8 8 ROZ Patterson T VISIT 15 MINUTES
--- OUTSIDE RECORDS SUMMARY | 2017-05-21 12:34 | External Medical Summary Rpt ---
Author Author KRISTINE Address Unknown Phone [email or web address] Immunization Name Date Rout CVX Reac Dose Comm Prov Is Faci e tion ent ider Refu lity Give sed n PPV2 10-1 33 999 Hist H158 No H158 3 9-20 oric 06 al Info rmat ion - Sour ce Unsp ecif ied
--- OUTSIDE RECORDS SUMMARY | 2017-05-21 12:34 | External Medical Summary Rpt ---
Author Author KRISTINE Address Unknown Phone [email or web address] Immunization Name Date Rout CVX Reac Dose Comm Prov Is Faci e tion ent ider Refu lity Give sed n PPV2 10-1 33 999 Hist H158 No H158 3 9-20 oric 06 al Info rmat ion - Sour ce Unsp ecif ied
--- OUTSIDE RECORDS SUMMARY | 2017-05-21 12:34 | External Medical Summary Rpt ---
Author Author , JESUS Organization JESUS Address Unknown Phone [email or web address] Care Team Providers Care Expander Machine Operator Name Role Phone [facility] Unavailable Unavailable INC, [facility] BESJIM, BESSON Unavailable Unavailable BOSWELL, BOSWELL Unavailable Unavailable BOSWELL, MANPREET, BOSWELL, Unavailable Unavailable [facility] Unavailable Unavailable [...] Unavailable ROZ BULLOCK EVANS, Unavailable Unavailable [facility] Un[facility] Un[facility], [facility], Unavailable Unavailable [facility] Unavailable Unavailable INC, [facility] Unavailable Unavailable HOSPITAL P, [facility] Unavailable Unavailable [facility]ENT, [facility] [place] Un[place] Unavailable [facility], [facility], Unavailable Unavailable [facility], Unavailable Unavailable [facility] MARIVEL PRADO, Unavailable Unavailable ROZ TADEO JR, RICE, Unavailable Unavailable ROZ Patterson TRUE, TRUE Unavailable Unavailable [facility] Unavailable Unavailable HOSPITALS, [facility] MOY IRVIN, Unavailable Unavailable MOY IRVIN PHILIP N, Unavailable Unavailable AMI GAMBOA Purpose Continuity of Care Document - 10-22-2007 through 2016 Problems Code Diagnosis DOS Provider Status J449 CHRONIC 04-29-2017 [facility] OBSTRUCTIVE MEDICAL PULMONARY DISEASE UNS R0902 HYPOXEMIA 04-29-2017 [facility] MEDICAL E8342 HYPOMAGNESE 04-24-2017 [facility] I10 ESSENTIAL 04-24-2017 [facility] N I2510 ASHD NAKNEK 04-24-2017 [facility] ARTERY W/O HOSPITALS ANGINA [...] SUPPLEMENTA HOSPITALS L OXYGEN J441 CHRONIC 04-08-2017 [facility] OBSTRUCTIVE MEDICAL PULMONARY DZ W/EXACERBAT ION C3490 MALIGNANT 03-26-2017 [facility] NEOPLASM [facility] P UNS BRONCHUS/RAJAN NG C3411 MALIGNANT 03-19-2017 [facility] MEDICAL UPPER LOBE IMAGING ASS RT BRONCHUS/RAJAN NG R590 LOCALIZED 03-19-2017 [facility] ENLARGED [facility]ICAL LYMPH NODES [facility]AGING ASS R918 OTHER 03-19-2017 [facility] NONSPECIFIC MEDICAL ABNORMAL IMAGING ASS FINDING OF LUNG FIELD Z0389 ENCOUNTER 03-19-2017 [facility] OBSERV OTH [facility] SUSPCT DZ & INC COND RULED OUT M6281 MUSCLE 03-06-2017 [facility] GENERALIZED HOME R010 BENIGN AND 03-06-2017 [facility] INNOCENT [facility] CARDIAC HOME MURMURS R5382 CHRONIC 03-06-2017 [facility] FATIGUE [facility] UNSPECIFIED HOME R55 SYNCOPE AND 03-06-2017 [facility] D381 NEOPLASM 03-05-2017 [facility] BRONCHUS & LUNG J439 EMPHYSEMA 02-06-2017 [facility] UNSPECIFIED AMBULANCE SERVICE J189 PNEUMONIA 02-04-2017 [facility] UNSPECIFIED PAIGE & ORGANISM DUBILIER C3431 MALIGNANT 02-03-2017 [facility] NEOPLASM [facility] L[facility] P RT BRONCHUS/RAJAN NG J9621 ACUTE & 02-03-2017 [facility] P FAILURE WITH HYPOXIA 47554 COR 06-09-2012 [facility] PRIMARY UNSPEC CARE TYPE VESSEL NAKNEK/EDYTA T 4660 ACUTE 06-09-2012 [facility] BRONCHITIS PRIMARY CARE 06810 CHEST PAIN 06-09-2012 [facility] UNSPECIFIED PRIMARY CARE 86817 OTHER 12-13-2008 [facility] CAVITY AND PSC SINUSES 7840 HEADACHE 12-13-2008 [facility] PSC 4019 UNSPECIFIED 12-07-2008 [facility] ESSENTIAL T HYPERTENSIO N 46532 OBSTRUCTIVE 12-07-2008 [facility] CHRONIC T BRONCHITIS WITHOUT EXACERBAT 71445 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 4720 CHRONIC 10-10-2008 [facility] RHINITIS MOY J 4730 CHRONIC 10-10-2008 [facility] MAXILLARY MOY J SINUSITIS 4731 CHRONIC 10-10-2008 [facility] FRONTAL MOY Mccollum SINUSITIS 4732 CHRONIC 10-10-2008 [facility] ETHMOIDAL MOY Mccollum SINUSITIS 60799 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 JENNY BULLOCK 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 00787 NONEXUDATIV 09-09-2008 Matias BULLOCK SENILE ROZ MACULAR DEGENERATIO N RETINA 16116 UNSPECIFIED 09-09-2008 KOBE CORNEAL ROZ OPACITY 2722 MIXED 09-08-2008 [facility] [employer] [facility] ALBA 4779 ALLERGIC 09-08-2008 [facility] RHINITIS T CAUSE UNSPECIFIED 10505 PAIN IN 09-08-2008 [facility] JOINT, T SHOULDER REGION V7644 SPECIAL 09-08-2008 [facility] SCREENING [employer] [facility] MALIGNANT NEOPLASM OF PROSTATE 3502 ATYPICAL 07-08-2008 [facility] FACE PAIN MOY J 470 DEVIATED 07-08-2008 [facility] NASAL MOY J SEPTUM 4780 HYPERTROPHY 07-08-2008 [facility] OF NASAL MOY J TURBINATES 4718 OTHER POLYP 07-05-2008 [facility] 496 CHRONIC 07-05-2008 [facility] PSC OBSTRUCTION NEC 75312 ESOPHAGEAL 07-05-2008 [facility] V5869 LONG-TERM 07-05-2008 [place] (CURRENT) REGIONAL USE OF MEDICAL OTHER CENT MEDICATIONS 2356 NEOPLASM OF 02-22-2008 [facility] [place] 76604 OTHER VOICE 02-22-2008 DENISE IRVIN RESONANCE DISORDERS V1582 PERS HX 02-22-2008 [facility] TOBACCO USE MOY Mccollum PRESENTING [facility] 2724 OTHER AND 11-02-2007 [facility] UNSPECIFIED T HYPERLIPIDE ALBA Procedures Procedure DOS Code Location Performer Comment PORTABLE E0443 TURNER TURNER O2 7 MEDICAL MEDICAL CONTENTS GASEOUS 1 MO SUPPLY=1 UNIT ECG 01311 [place] ROUTINE 7 MEDICAL ECG SERV W/LEAST FOUNDATIO 12 LDS N I&R ONLY RADIOLOGI 93238 [place] TRUE C 7 MEDICAL EXAMINATI SERV ON CHEST FOUNDATIO SINGLE N VIEW FRONTAL NEBULIZER E0570 TURNER TURNER WITH 7 MEDICAL MEDICAL COMPRESSO R HUMDIFIR E0562 TURNER TURNER HEATED 7 MEDICAL MEDICAL USED EQUIPMENT EQUIPMENT W/POS ARWAY PRESSURE DEVICE CT THORAX 75588 [facility] 7 MEDICAL W/[place] [address] [facility] CARTER ABDOMEN & 7 [facility] PELVIS INC INC W/CONTRAS T MATERIAL LOCM Q9967 [facility] CARTER 300-399 7 [facility] MG/ML INC INC IODINE CONCENTRA TION PER ML PORTABLE E0443 TURNER TURNER O2 7 MEDICAL MEDICAL CONTENTS GASEOUS 1 MO SUPPLY=1 [place] [address] COMBINED COMBINED UREA 7 PHYSICIAN PHYSICIAN NITROGEN S LA S LA QUANTITAT AURELIA CREATININ 13154 COMBINED COMBINED E BLOOD 7 PHYSICIAN PHYSICIAN S LA S LA NEBULIZER E0570 TURNER TURNER WITH 7 MEDICAL MEDICAL COMPRESSO R HUMDIFIR E0562 T[facility] TURNER HEATED 7 MEDICAL MEDICAL USED EQUIPMENT EQUIPMENT W/POS ARWAY PRESSURE DEVICE AMBULANCE A0428 [facility] SERVICE 7 AMBULANCE AMBULANCE BLS SERVICE SERVICE NONEMERGE NCY TRANSPORT NEBULIZER E0570 TURNER TURNER WITH 7 MEDICAL MEDICAL COMPRESSO R GROUND A0425 [facility] MILEAGE 7 AMBULANCE AMBULANCE PER SERVICE SERVICE STATUTE MILE ADMN SET A7005 [facility] TURNER W/SM VOL 7 MEDICAL MEDICAL NONFILTR NEBULIZR NON-DISPB L ECG 03188 [facility] ROUTINE 7 [facility] W/LEAST P P 12 LDS I&R ONLY CYTP 99658 [facility] PICKLES[facility] SLCTV 7 PAIGE & ER JR CELL DUBILIER ENHANCEME NT INTERPJ XCPT C/[place] [address] [facility] SURG 7 PAIGE & ER JR PATHOLOGY DUBILIER GROSS&DONNY ROSCOPIC EXAM INITIAL [address] THORAX [address] [facility] 7 MEDICAL W/CONTRAS IMAGING T ASS MATERIAL MRI BRAIN 52128 [facility] BOSWE[facility], BRAIN 9 IMAGING MANPREET STEM W/O ASSOCIATE W/CONTRAS S PSC T MATERIAL NASAL 79019 [facility] IRVIN ENDOSCOPY 9 , MOY VENEGAS DIAGNOSTI C UNI/BI SPX FUNDUS 33814 KOBE BULLOCK, PHOTOGRAP 8 ROZ COURTNEY HY W/INTERPR ETATION & REPORT XTRNL 86159 KOBE BULLOCK, OCULAR 8 ROZ COURTNEY PHOTOG W/I&R DOCMT MEDICAL PROGRE LIPID 75438 [facility] PANEL 8 [facility] COMPREHEN 58684 [facility] SIVE 8 [facility] METABOLIC PANEL PROSTATE G0103 [facility] CANCER 8 [facility] SCREENING ; PSA TEST COLLECTIO 20077 JUNIOR [facility], N VENOUS 8 ROZJIM COURTNEY T BLOOD VENIPUNCT URE HEMOGLOBI 51524 [facility] N 8 [facility] [employer] [facility] GLYCOSYLA NU A1C NASAL 98712 [facility] IRVIN ENDOSCOPY 8 , MOY VENEGASTI C UNI/BI SPX NSL/SINUS 81920 [facility] IRVIN NDSC MAX 8 MOY MARK J ANTROST W/RMVL TISS MAX SINUS SUBMUCOUS 57224 [facility] IRVIN RESCJ 8 , MOY VENEGAS INFERIOR TURBINATE PRTL/COMP L NASAL/SIN 86146 [facility] NDSC 8 , MOY VENEGAS SURG W/[place] [address] [facility] SURG 8 [facility] PATHOLOGY INC INC GROSS&DONNY ROSCOPIC EXAM FLUOROSCO 75421 [facility] PY SPX UP 8 REGIONAL REGIONAL TO 1 MEDICAL MEDICAL HOUR CENT CENT PHYS/QHP TIME INJECTION J2370 [facility] 8 REGIONAL REGIONAL PHENYLEPH MEDICAL MEDICAL RINE HCL CENT CENT UP TO 1 ML INJECTION J2405 [facility] 8 REGIONAL REGIONAL ONDANSETR MEDICAL MEDICAL ON HCL CENT CENT PER 1 MG NASAL/SIN 85165 [facility] NDSC 8 , MOY VENEGAS W/FRONTAL SINUS EXPLORATI ON NASAL/SIN 10329 [facility] 8 REGIONAL REGIONAL ENDOSCOPY MEDICAL MEDICAL CENT CENT W/ETHMOID ECTOMY TOTAL INJECTION J2250 [facility] 8 REGIONAL REGIONAL MIDAZOLAM MEDICAL MEDICAL HCL PER CENT CENT 1 MG INJECTION J2710 [facility] 8 REGIONAL REGIONAL NEOSTIGMI MEDICAL MEDICAL NE CENT CENT METHYLSUL FATE UP TO 0.5 MG INJECTION J3010 [facility] FENTANYL 8 REGIONAL REGIONAL CITRATE MEDICAL MEDICAL 0.1 MG CENT CENT INFUSION J7030 [facility] NORMAL 8 REGIONAL REGIONAL SALINE MEDICAL MEDICAL SOLUTION CENT CENT 1000 CC INJECTION J1100 [facility] 8 REGIONAL REGIONAL DEXAMETHO MEDICAL MEDICAL SONE CENT CENT SODIUM PHOSPHATE 1 MG INJECTION J2001 [facility] 8 REGIONAL REGIONAL LIDOCAINE MEDICAL MEDICAL HCL CENT CENT INTRAVENO US INFUS 10 MG RINGERS J7120 [facility] LACTATE 8 REGIONAL REGIONAL INFUSION MEDICAL MEDICAL UP TO CENT CENT 1000 CC NASAL/SIN 61956 [facility] US 8 , MOY VENEGAS ENDOSCOPY W/ETHMOID ECTOMY PARTIAL SEPTOPLAS 75430 [facility] TY/SUBMUC 8 , MOY J , MOY J OUS RESECJ W/WO CARTILAGE GRF PROTHROMB 51010 [facility] IN TIME 8 REGIONAL REGIONAL MEDICAL MEDICAL CENT CENT ECG 03989 [facility] ROUTINE 8 REGIONAL REGIONAL ECG MEDICAL MEDICAL W/LEAST CENT CENT 12 LDS TRCG ONLY W/O I&R THROMBOPL 53483 [facility] ASTIN 8 REGIONAL REGIONAL TIME MEDICAL MEDICAL PARTIAL CENT CENT PLASMA/WH OLE BLOOD RADIOLOGI 13688 [facility], C EXAM 8 [place] AMI N CHEST 2 IMAGING VIEWS PSC FRONTAL&L ATERAL ECG 80015 [facility], ROUTINE 8 REGIONAL WILLIE A ECG MEDICAL W/LEAST CENTER 12 LDS I&R ONLY DRUG 31993 [facility] ASSAY 8 REGIONAL REGIONAL VALPROIC MEDICAL MEDICAL DIPROPYLA CENT CENT CETIC ACID TOTAL BLOOD 56287 [facility] COUNT 8 REGIONAL REGIONAL COMPLETE MEDICAL MEDICAL AUTO&AUTO CENT CENT DIFRNTL WBC COLLECTIO 66354 [facility] N VENOUS 8 REGIONAL REGIONAL BLOOD MEDICAL [place] [address] [facility] MAXILLOFA 8 REGIONAL REGIONAL CIAL W/O MEDICAL MEDICAL CONTRAST CENT CENT MATERIAL LARYNGOSC 33742 [facility] DURHAM 8 , MOY Mccollum , [...] Date Code Location Performer Type Date [facility] OFFICE 31314 [facility] 7 [facility] P [facility] - 7 7 [facility] 7 7 [facility] OFFICE 11534 [facility] OUTPATIEN 7 7 [facility] 10 P MINUTES [facility] INPATIENT 7 7 [facility] 2 [facility] OFF[facility] 00328 [facility] 2 [facility] T VISIT CARE 15 MINUTES [facility] [place] [address] 9 [facility] T MEDIC OFFICE 88338 [facility] OUTPATIEN 9 9 ROZ Patterson T VISIT 15 MINUTES OFFICE 87120 KOBE BULLOCK OUTPATIEN 8 8 ROZ Patterson VISIT 25 MINUTES OFFICE 79171 [facility] OUTPATIEN 8 8 ROZ Patterson T VISIT 10 MINUTES [facility] [place] [address] 8 [facility] 98545 [facility] CONSULTAT 8 8 ROZ Patterson ION NEW/ESTAB PATIENT 60 MIN [facility] [place] [address] 8 [facility] OUTPATIEN MEDICAL T CENT OFF[facility] 69294 [facility] 8 8 , MOY VENEGAS T NEW 30 MINUTES OFFICE 28477 [facility] OUTPATIEN 8 8 ROZ Patterson T VISIT 15 MINUTES
--- OUTSIDE RECORDS SUMMARY | 2017-05-21 12:34 | External Medical Summary Rpt ---
Author Author , JESUS Organization JESUS Address Unknown Phone .[facility] Care Team Providers Care Digital Publishing Specialist Name Role Phone [facility] [place] Unavailable Unavailable INC, [facility] BESJIM, BESSON Unavailable Unavailable BOSWELL, BOSWELL [...] Unavailable ROZ BULLOCK EVANS, Unavailable Unavailable [facility] Un[facility] Unavailable [facility], [facility], Unavailable Unavailable [facility] Unavailable Unavailable INC, [facility] Unavailable [facility]available HOSPITAL P, [facility] Un[facility], [facility] [place] Un[place] [facility] Un[facility], [facility], [facility], Unavailable Unavailable [facility], Unavailable Unavailable [facility] MARIVEL PRADO, Unavailable Unavailable ROZ TADEO JR, RICE, Unavailable Unavailable ROZ Patterson TRUE, TRUE Unavailable Unavailable [facility] Unavailable Unavailable HOSPITALS, [facility] MOY IRVIN, Unavailable Unavailable MOY IRVIN PHILIP N, Unavailable Unavailable AMI GAMBOA Purpose Continuity of Care Document - 10-22-2007 through 2016 Problems Code Diagnosis DOS Provider Status J449 CHRONIC 04-29-[address] [facility] OBSTRUCTIVE MEDICAL PULMONARY DISEASE UNS R0902 HYPOXEMIA 04-29-[address] [facility] MEDICAL E8342 HYPOMAGNESE 04-24-2017 [facility] I10 ESSENTIAL 04-24-2017 [facility] N I2510 ASHD [place] 04-24-2017 [facility] ARTERY W/O HOSPITALS ANGINA [...] W/EXACERBAT ION C3490 MALIGNANT 03-26-2017 [facility] NEOPLASM [facility] P UNS BRONCHUS/RAJAN NG C3411 MALIGNANT 03-19-2017 [facility]BE [facility] RT BRONCHUS/RAJAN NG R590 LOCALIZED 03-19-2017 [place] EN[facility]ARGED [facility] LYMPH NODES [facility] R918 OTHER 03-19-2017 [place] NONSPECIFIC MEDICAL ABNORMAL [facility]AGING ASS FINDING OF LUNG FIELD Z0389 ENCOUNTER 03-19-2017 [facility] OBSERV OTH [facility] SUSPCT DZ & INC COND RULED OUT M6281 MUSCLE 03-06-2017 [facility] GENERALIZED HOME R010 BENIGN AND 03-06-2017 [facility] INNOCENT [facility] CARDIAC HOME MURMURS R5382 CHRONIC 03-06-2017 [facility]UE [facility] UNSPECIFIED HOME R55 SYNCOPE AND 03-06-2017 [facility] COLLAPSE [facility] HOME D381 NEOPLASM 03-05-2017 [facility] P BRONCHUS & LUNG J439 EMPHYSEMA 02-06-2017 [facility] UNSPECIFIED [facility]BULANCE SERVICE J189 PNEUMONIA 02-04-2017 [facility] UNSPECIFIED PAIGE & ORGANISM DUBILIER C3431 MALIGNANT 02-03-2017 [facility] NEOPLASM [facility] LOWER LOBE [facility] P RT BRONCHUS/RAJAN NG J9621 ACUTE & 02-03-2017 [facility] P FAILURE WITH HYPOXIA 02169 COR 06-09-2012 [facility] PRIMARY UNSPEC CARE TYPE VESSEL TONAWANDA/EDYTA T 4660 ACUTE 06-09-2012 [facility] BRONCHITIS [facility]IMARY CARE 54065 CHEST PAIN 06-09-2012 [facility] UNSPECIFIED PRIMARY CARE 86283 OTHER 12-13-2008 [facility] CAVITY AND PSC SINUSES 7840 HEADACHE 12-13-2008 [facility] PSC 4019 UNSPECIFIED 12-07-2008 RO[facility] PAC[facility]CO ESSENTIAL T HYPERTENSIO N 91056 OBSTRUCTIVE 12-07-2008 [facility] CHRONIC T BRONCHITIS WITHOUT EXACERBAT 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 4720 CHRONIC 10-10-2008 [facility] RHINITIS MYO J 4730 CHRONIC 10-10-2008 [facility] MAXILLARY MOY J SINUSITIS 4731 CHRONIC 10-10-2008 [facility] FRONTAL MOY Mccollum SINUSITIS 4732 CHRONIC 10-10-2008 [facility] ETHMOIDAL MOY Mccollum SINUSITIS 94538 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 JENNY BULLOCK 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 86672 NONEXUDATIV 09-09-2008 Matias BULLOCK SENILE ROZ MACULAR DEGENERATIO N RETINA 23342 UNSPECIFIED 09-09-2008 KOBE CORNEAL ROZ OPACITY 2722 MIXED 09-08-2008 [facility] ALBA 4779 ALLERGIC 09-08-2008 [facility] RHINITIS T CAUSE UNSPECIFIED 78257 PAIN IN 09-08-2008 [facility] JOINT, T SHOULDER REGION V7644 SPECIAL 09-08-2008 [facility]CREEN[facility] MALIGNANT NEOPLASM OF PROSTATE 3502 ATYPICAL 07-08-2008 [facility] FACE PAIN MOY J 470 DEVIATED 07-08-2008 [facility] NASAL MOY J SEPTUM 4780 HYPERTROPHY 07-08-2008 ALBARO OF NASAL MOY J TURBINATES 4718 OTHER POLYP 07-05-2008 [facility] 496 CHRONIC 07-05-2008 [facility] PSC OBSTRUCTION NEC 09466 ESOPHAGEAL 07-05-2008 [facility] V5869 LONG-TERM 07-05-2008 [facility] (CURRENT) REGIONAL USE OF MEDICAL OTHER CENT MEDICATIONS 2356 NEOPLASM OF 02-22-2008 GORDO IRVIN BEH[facility]IOR OF [place] 46846 OTHER VOICE 02-22-2008 DENISE IRVIN RESONANCE DISORDERS V1582 PERS HX 02-22-2008 [facility] TOBACCO USE MOY Mccollum PRESENTING [facility] 2724 OTHER AND 11-02-2007 RO[facility] UNSPECIFIED T HYPERLIPIDE ALBA Procedures Procedure DOS Code Location Performer Comment PORTABLE E0443 TURNER TURNRE O2 7 MEDICAL MEDICAL CONTENTS GASEOUS 1 MO SUPPLY=1 UNIT ECG 48880 [place] ROUTINE 7 MEDICAL ECG SERV W/LEAST FOUNDATIO 12 LDS N I&R ONLY RADIOLOGI 52991 [place] TRUE C 7 MEDICAL EXAMINATI SERV ON CHEST FOUNDATIO SINGLE N VIEW FRONTAL NEBULIZER E0570 TURNER TURNER WITH 7 MEDICAL MEDICAL COMPRESSO R HUMDIFIR E0562 TURNER TURNER HEATED 7 MEDICAL MEDICAL USED EQUIPMENT EQUIPMENT W/POS ARWAY PRESSURE DEVICE CT THORAX 20699 [place] [facility] 7 MEDICAL W/[place] [address] RA[facility] CARTER ABDOMEN & 7 [facility] PELVIS INC INC W/CONTRAS T MATERIAL LOCM Q9967 [facility] CARTER 300-399 7 [facility] MG/ML INC INC IODINE CONCENTRA TION PER ML PORTABLE E0443 TURNER TURNER O2 7 MEDICAL MEDICAL CONTENTS GASEOUS 1 MO SUPPLY=1 [place] [address] COMBINED COMBINED UREA 7 PHYSICIAN PHYSICIAN NITROGEN S LA S LA QUANTITAT AURELIA CREATININ 82597 COMBINED COMBINED E BLOOD 7 PHYSICIAN PHYSICIAN S LA S LA NEBULIZER E0570 TURNER TURNER WITH 7 MEDICAL MEDICAL COMPRESSO R HUMDIFIR E0562 TURNER TURNER HEATED 7 MEDICAL MEDICAL USED EQUIPMENT EQUIPMENT W/POS ARWAY PRESSURE DEVICE AMBULANCE A0428 [facility] SERVICE 7 AMBULANCE AMBULANCE BLS SERVICE SERVICE NONEMERGE NCY TRANSPORT NEBULIZER E0570 TURNER TURNER WITH 7 MEDICAL MEDICAL COMPRESSO R GROUND A0425 [facility] MILEAGE 7 AMBULANCE AMBULANCE PER SERVICE SERVICE STATUTE MILE ADMN SET A7005 TURNER TURNER W/SM VOL 7 MEDICAL MEDICAL NONFILTR NEBULIZR NON-DISPB L ECG 46665 RAUL RAUL ROUTINE 7 [facility] W/LEAST P P 12 LDS I&R ONLY CYTP 57742 [facility] PICKLESIM SLCTV 7 PAIGE & ER JR CELL DUBILIER ENHANCEME NT INTERPJ XCPT C/[place] [address] [facility] PICK[facility] SURG 7 PAIGE & ER JR PATHOLOGY DUBILIER GROSS&DONNY ROSCOPIC EXAM INITIAL [address] THORAX [address] [facility] MONROYPINEDA 7 MEDICAL W/CONTRAS IMAGING T ASS MATERIAL MRI BRAIN 70428 [facility] BOSWELL, BRAIN 9 IMAGING MANPREET STEM W/O ASSOCIATE W/CONTRAS S PSC T MATERIAL NASAL 61494 ALBARO IRVIN ENDOSCOPY 9 , MOY VENEGAS DIAGNOSTI C UNI/BI SPX FUNDUS 22101 KOBE BULLOCK, PHOTOGRAP 8 ROZ COURTNEY HY W/INTERPR ETATION & REPORT XTRNL 37110 KOBE BULLOCK, OCULAR 8 ROZ COURTNEY PHOTOG W/I&R DOCMT MEDICAL PROGRE LIPID 22056 [facility] PANEL 8 [facility] COMPREHEN 29465 [facility] SIVE 8 [facility] METABOLIC PANEL PROSTATE G0103 [facility] CANC[facility] [address] [facility] SCREENING ; PSA TEST COLLECTIO 81488 [facility]UN[facility], N VENOUS 8 ROZJIM COURTNEY T BLOOD VENIPUNCT URE HEMOGLOBI 65990 [facility] N 8 [facility] GLYCOSYLA NU A1C NASAL 23222 ALBARO IRVIN ENDOSCOPY 8 , MOY VENEGASTI C UNI/BI SPX NSL/SINUS 63473 ALBARO IRVIN NDSC MAX 8 MOY MARK J ANTROST W/RMVL TISS MAX SINUS SUBMUCOUS 18224 ALBARO IRVIN RESCJ 8 , MOY VENEGAS INFERIOR TURBINATE PRTL/COMP L NASAL/SIN 47653 [facility] NDSC 8 , MOY VENEGAS SURG W/[place] [address] [facility] SURG 8 [facility] PATHOLOGY INC INC GROSS&DONNY ROSCOPIC EXAM FLUOROSCO 02081 [facility] PY SPX UP 8 REGIONAL REGIONAL TO 1 MEDICAL MEDICAL HOUR CENT CENT PHYS/QHP TIME INJECTION J2370 [facility] 8 REGIONAL REGIONAL PHENYLEPH MEDICAL MEDICAL RINE HCL CENT CENT UP TO 1 ML INJECTION J2405 [facility] 8 REGIONAL REGIONAL ONDANSETR MEDICAL MEDICAL ON HCL CENT CENT PER 1 MG NASAL/SIN 34686 [facility] NDSC 8 , MOY VENEGAS W/FRONTAL SINUS EXPLORATI ON NASAL/SIN 71528 [facility] 8 REGIONAL REGIONAL ENDOSCOPY MEDICAL MEDICAL CENT CENT W/ETHMOID ECTOMY TOTAL INJECTION J2250 [facility] 8 REGIONAL REGIONAL MIDAZOLAM MEDICAL MEDICAL HCL PER CENT CENT 1 MG INJECTION J2710 [facility] 8 REGIONAL REGIONAL NEOSTIGMI MEDICAL MEDICAL NE CENT CENT METHYLSUL FATE UP TO 0.5 MG INJECTION J3010 [facility] FENTANYL 8 REGIONAL REGIONAL CITRATE MEDICAL MEDICAL 0.1 MG CENT CENT INFUSION J7030 [facility] NORMAL 8 REGIONAL REGIONAL SALINE MEDICAL MEDICAL SOLUTION CENT CENT 1000 CC INJECTION J1100 [facility] 8 REGIONAL REGIONAL DEXAMETHO MEDICAL MEDICAL SONE CENT CENT SODIUM PHOSPHATE 1 MG INJECTION J2001 [facility] 8 REGIONAL REGIONAL LIDOCAINE MEDICAL MEDICAL HCL CENT CENT INTRAVENO US INFUS 10 MG RINGERS J7120 [facility] LACTATE 8 REGIONAL REGIONAL INFUSION MEDICAL MEDICAL UP TO CENT CENT 1000 CC NASAL/SIN 01476 [facility] US 8 , MOY VENEGAS ENDOSCOPY W/ETHMOID ECTOMY PARTIAL SEPTOPLAS 13173 [facility] TY/SUBMUC 8 , MOY J , MOY J OUS RESECJ W/WO CARTILAGE GRF PROTHROMB 68786 [facility] IN TIME 8 REGIONAL REGIONAL MEDICAL MEDICAL CENT CENT ECG 84593 [facility] ROUTINE 8 REGIONAL REGIONAL ECG MEDICAL MEDICAL W/LEAST CENT CENT 12 LDS TRCG ONLY W/O I&R THROMBOPL 84261 [facility] ASTIN 8 REGIONAL REGIONAL TIME MEDICAL MEDICAL PARTIAL CENT CENT PLASMA/WH OLE BLOOD RADIOLOGI 00552 [facility], C EXAM 8 [place] AMI N CHEST 2 IMAGING VIEWS PSC FRONTAL&L ATERAL ECG 44970 REX DALATI, ROUTINE 8 REGIONAL WILLIE A ECG MEDICAL W/LEAST CENTER 12 LDS I&R ONLY DRUG 03318 [facility] ASSAY 8 REGIONAL REGIONAL VALPROIC MEDICAL MEDICAL DIPROPYLA CENT CENT CETIC ACID TOTAL BLOOD 17424 [facility] COUNT 8 REGIONAL REGIONAL COMPLETE MEDICAL MEDICAL AUTO&AUTO CENT CENT DIFRNTL WBC COLLECTIO 51799 [facility] N VENOUS 8 REGIONAL REGIONAL BLOOD MEDICAL [place] [address] [facility] MAXILLOFA 8 REGIONAL REGIONAL CIAL W/O MEDICAL MEDICAL CONTRAST CENT CENT MATERIAL LARYNGOSC 84090 [facility] 8 , MOY Mccollum , [...] Date Code Location Performer Type Date [facility]OSPITAL [facility] 7 [facility] OFFICE 33604 [facility]PATIEN 7 [facility] - 7 7 [facility] 7 7 [facility] OFFICE 00498 [facility] OUTPATIEN 7 7 [facility] 10 P MINUTES [facility] - [facility] INPATIENT 7 7 [facility] 2 2 [facility] OFFICE 48871 COUNTS INCLUDE 234 BEDS AT [facility] 2 2 PRIMARY T VISIT CARE 15 MINUTES [facility] [place] [address] 9 [place] [facility] OFFICE 60380 [facility] OUTPATIEN 9 9 ROZ Patterson T VISIT 15 MINUTES OFFICE 38083 KOBE BULLOCK OUTPATIEN 8 8 ROZ Patterson VISIT 25 MINUTES OFFICE 16210 [facility] OUTPATIEN 8 8 ROZ Patterson T VISIT 10 MINUTES [facility] [place] [address] 8 [facility] T CENT OFFICE 53701 JNUIOR [facility] CONSULTAT 8 8 ROZ Patterson ION NEW/ESTAB PATIENT 60 MIN [facility] [place] [address] 8 [facility] OUTPATIEN MEDICAL T CENT OFFICE 81173 [facility] 8 , OMY VENEGAS T NEW 30 MINUTES OFFICE 14016 [facility] OUTPATIEN 8 8 ROZ Patterson T VISIT 15 MINUTES
[2017-05-21 12:39] LABS: URINE BLOOD NEGATIVE (NEG)
[2017-05-21 12:43] LABS: URINE BILIRUBIN - DIPSTICK NEGATIVE (NEG)
[2017-05-21 12:48] LABS: AMPHETAMINES/METAMPHETAMINES NEGATIVE ng/mL (<1000)
[2017-05-21 12:53] LABS: URINE SQUAMOUS CELLS OCC #/hpf (OCC)
--- NOTE | 2017-05-21 13:28 | Emergency Room Report ---
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 N Clinical Suspician of Infection? N Mental Status: 1 - Regular (Normal Baseline) Sepsis Risk:Low Sepsis Risk Have you (or family members/close friends) recently traveled outside the [place]? N If Yes, where/when: Have you had exposure to infectious disease within the past month? N TB? Other? Specify: Source patient, RN notes reviewed, RN/MD Exam Limitations no limitations Comment This is a 61-year-old male patient recently diagnosed with lung cancer (currently being managed by Dr. Miguel), who is [facility], where he was supposed to be admitted, on his first day, due to ETOH intoxication. Patient was allegedly advised to not return to the facility unless he goes through a detox center. Patient admitted of drinking 6 beers earlier this morning. He is a known alcoholic. He is denying any other complaints at this time. ALLERGIES Coded Allergies: No Known Allergies (02/01/17) Home Medications Active Scripts NEBULIZER (Compact Compressor Nebulizer) 1 UNIT XX UD #1 DEV Ref 1 Prov: 02/05/17 ALBUTEROL/IPRATROPIUM (Combivent Respimat Inhal [place]) 1 PUFF IH QID 30 Days Ref 3 Prov: 02/05/17 Reported Medications Amitriptyline Hcl (Amitriptyline) 50 MG PO QHS Amlodipine Besylate (Amlodipine) 5 MG PO DAILY Montelukast Sodium (Singulair 10MG) 10 MG PO DAILY Oxybutynin Chloride (Oxybutynin Chloride ER) 20 MG PO DAILY Trazodone HCl 300 MG PO QHS Roflumilast (Daliresp) 500 MCG PO DAILY DULOXETINE HCL (Cymbalta 60MG) 60 MG PO DAILY Pregabalin (Lyrica 50MG) 50 MG PO BID Metformin HCL (Metformin) 500 MG PO BID PRAVASTATIN SODIUM (Pravastatin Sodium) 40 MG PO QHS FLUTICASONE/SALMETEROL (Advair 500-50 Diskus) 1 PUFF IN BID Carvedilol (Carvedilol 6.25MG) 12 MG PO BID HYDROCODONE 5MG/APAP 325MG (Hydrocodon-Acetaminophen 5-325) 1 TAB PO Q4HP PRN PAIN Rivaroxaban (Xarelto) 10 MG PO DAILY History Medical History General CAD? No Angina: No MD: No Hypertension? Yes Hyperlipidemia? Yes CHF? No DVT? No PE? No COPD? Yes Asthma? Yes Anemia? No GERD? Yes Gastric ulcers? No GI Bleed? No Hernia? No Thyroid Problems? No Hypothyroidism? No CVA? No Seizures? No Diabetes? Yes Insulin Dependent: No Insulin Pump: No Home FSBS? Yes Renal Insuffiency? No End Stage Renal Disease? No UTI? No Stones? No BPH? No GB Disease: No Nephritic Syndrome? No Asplenia? No Hepatitis? No Sickle Cell Disease? No Arthritis? No Migraines? No Cataracts? Yes Glaucoma? No MRSA? No HIV? No TB? No Anxiety? No Depression? No Cancer? Yes Site: LUNG CA More? Yes Additional hx: LYMPHOMA, SKIN CA, has received chemotherapy and radiation for lymphoma and skin cancer of head and neck. Diagnosed with lung cancer 2-3 years ago but "my lungs were too bad to do anything about it." Uses BiPAP at night for ventilatory failure issues given his end-stage chronic obstructive pulmonary disease Immunization Hx DT/Tetanus Unknown Pneumonia Refuses Surgical Hx Previous Surgery?Y CATARACTS VOCAL CORD SURGERY Appendectomy CARDIAC STENT X1 Family History Family Hx Diabetes Yes CAD Yes Hypertension Yes Hyperlipidemia No Cancer Yes TB No Social History Smoking Hx Smoker: Current Some Day Smoker Tobacco: Yes Type Cigarettes Packs/day < 1 Pack Alcohol Alcohol: Yes Review of Systems All Other Systems Reviewed and Negative Psychiatric/Neurological other (alETO intoxication) Physical Exam Vital Signs Vital Signs Date Time Temp Pulse Resp B/P Pulse O2 O2 Flow FiO2 Ox Delivery Rate 05/21 1719 84 20 112/58 97 3 05/21 1540 98.1 84 20 101/55 97 3 05/21 1505 98.1 84 20 100/54 97 3 05/21 1339 84 20 92/68 97 3 05/21 1247 98.1 84 20 110/54 97 3 05/21 1200 18.0 84 2 111/51 97 3 General Appearance normal appearance, WD/WN, no apparent distress, ETOH odor in his breath Respiratory Status Yes: trachea midline, chest symmetrical, non tender chest. No: respiratory distress. Lung Sounds bilateral: normal breath sounds, lungs clear. 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 No Comment 14:30-case discussed with Dr. Cadena advised the patient's presentation, findings. At the Tammi suggested to consult with case management, for possible placement versus referral to an outpatient detox center. 15:30-case management here evaluating patient. 17:30-case discussed with Dr. Cadena again, advised of patient still being here, with no transportation back home, unable to transfer him to any detox centers in this area. Dr. Cadena agreeable with admission at this time. Care transferred to Dr. Cadena. I will write temporary admission orders per hospital protocol. Upon patient's arrival to the floor the unit nurse will contact PCP in order to obtain full inpatient admission orders. Results/Orders Laboratory Tests 05/21/17 1520: Alcohols 111 H 05/21/17 1230: Opiates Screen POSITIVE H, Urine Methadone Screen NEGATIVE, Barbiturates NEGATIVE, Phencyclidine Screen NEGATIVE, Amphetamines Screen NEGATIVE, Benzodiazepines Screen NEGATIVE, Cocaine Screen NEGATIVE, Marijuana (THC) Screen NEGATIVE, Urine Color YELLOW, Urine Appearance CLEAR, Urine pH 6.0, Ur Specific Sundance 1.020, Urine Protein NEGATIVE, Urine Ketones 1+ H, Urine Blood NEGATIVE , Urine Nitrate NEGATIVE, Urine Bilirubin NEGATIVE, Urine Urobilinogen 1.0, Ur Leukocyte Esterase NEGATIVE, Urine RBC NONE, Urine WBC OCC, Ur Squamous Epith Cells OCC, Urine Bacteria TRACE, Hyaline Casts 3-5, Urine Mucus 4+, Urine Glucose NEGATIVE 05/21/17 1210: Sodium 132 L, Potassium 3.9, Chloride 92 L, Carbon Dioxide 33 H, BUN 7, Creatinine 0.4 L, Estimated Creat Clear 199, Estimated GFR (MDRD) 219, Glucose 92, Calcium 8.4 L, Total Bilirubin 0.4, AST 26, ALT 31, Alkaline Phosphatase 196 H, Total Protein 7.0, Albumin 2.7 L, Globulin 4.3 H, Albumin/Globulin Ratio 0.6 L, Amylase 26, Lipase 85, WBC 11.2 H, RBC 4.28 L, Hgb 12.9 L, Hct 39.1 L, MCV 91.4, RDW 15.3, Plt Count 116 L, MPV 8.2, Gran % 76.1, Gran # 8.5 H, Lymphocytes % 18.7, Monocytes % 4.3, Eosinophils % 0.6, Basophils % 0.2, Lymphocytes # 2.1, Monocytes # 0.5, Eosinophils # 0.1, Basophils # 0.0, PUBS MCHC 33.1, MCH 30.2, Alcohols 161 H Current Medication Orders Sig/Santino Start time Last Medication Dose Route Stop Time Status Admin Sodium Chloride 10 ML PRN PRN 05/21 1645 AC IV 05/22 1635 Sodium Chloride 1,000 ML .STK-MED ONE 05/21 1616 DC IV Sodium Chloride 1,000 ML .Q1H1M 05/21 1615 DC IV 05/21 1715 Sodium Chloride 10 ML PRN PRN 05/21 1615 AC IV 05/22 1614 Folic Acid 1 MG ONCE ONE 05/21 1215 CAN PO 05/21 1216 Miscellaneous 1 UNIT ONCE ONE 05/21 1215 CAN Medication XX 05/21 1216 Multivitamins 10 ML .[id number] 05/21 1215 CAN Magnesium Sulfate 2 GM IV 05/21 1856 Thiamine HCl 100 MG Lactated Ringer's 1,000 ML Orders Procedure Date/time Status Decision to admit 05/21 1758 Active IV SALINE LOCK 05/21 1636 Active ALCOHOL 05/21 1504 Complete URINALYSIS/COMPLETE 05/21 1212 Complete LIPASE 05/21 1212 Complete DRUG ABUSE SCREEN (10) 05/21 1212 Complete CBC WITH AUTO DIFF 05/21 1212 Complete CHEM 12 PROFILE 05/21 1212 Complete AMYLASE 05/21 1212 Complete ALCOHOL 05/21 1212 Complete Departure Departure Time of Disposition 1745 Disposition Still a Patient Clinical Impression Primary Impression: Alcohol intoxication Qualifiers: Complication of substance-induced condition: with unspecified complication Qualified Code: F10.929 - Alcohol use, unspecified with intoxication, unspecified Condition STABLE Referrals Tammi WU,Denny (Family) ED Critical Care Critical Care No at 1757
--- OUTSIDE RECORDS SUMMARY | 2017-05-21 18:16 | External Medical Summary Rpt ---
Author Author , JESUS LEE Address Unknown Phone [email or web address] Care Team Providers Care Help Desk Assistant Name Role Phone ALAN PHILLIPS Unavailable Unavailable BOSWELL, BOSWELL Unavailable Unavailable BOSWELL, MANPREET, BOSWELL, Unavailable Unavailable MANPREET [facility] Unavailable Unavailable SERVICE, [facility] Unavailable Unavailable SERVICE, [facility] CHIPPS PAIGE & Unavailable Unavailable DUBILIER, CHIPPS PAIGE & DUBILIER [facility] Unavailable Unavailable [facility], [facility], Unavailable Unavailable [facility], [facility]available [facility]available [facility] Unavailable Unavailable EQUIPMENT, [facility] PINEDA, PINEDA Unavailable Unavailable DALATI, WILLIE A, Unavailable Unavailable DALATI, WILLIE A PHILIP, PHILIP Unavailable Unavailable ROZ BULLOCK EVANS, Unavailable Unavailable [facility] Unavailable Unavailable HOME, [facility], Unavailable Unavailable [facility] Unavailable Unavailable INC, [facility] Unavailable Unavailable HOSPITAL P, [facility] Unavailable Unavailable MEDICAL CENT, [facility] [place] Unavailable Unavailable [facility] Un[facility], [facility] Un[facility], [facility], [facility]available Unavailable [facility], Unavailable Unavailable [facility] MARIVEL PRADO, Unavailable Unavailable ROZ TADEO JR, RICE, Unavailable Unavailable ROZ Patterson TRUE, TRUE Unavailable Unavailable [facility] Unavailable Unavailable HOSPITALS, [facility] MOY IRVIN, Unavailable Unavailable MOY IRVIN PHILIP N, Unavailable Unavailable AMI GAMBOA Purpose Continuity of Care Document - 10-22-2007 through 2016 Problems Code Diagnosis DOS Provider Status J449 CHRONIC 04-29-2017 [facility] OBSTRUCTIVE MEDICAL PULMONARY DISEASE UNS R0902 HYPOXEMIA 04-29-2017 [facility] E8342 HYPOMAGNESE 04-24-[address] [facility] I10 ESSENTIAL 04-24-2017 [facility]YP[facility] HOSPIT[facility] N I2510 ASHD ROSEBUD 04-24-2017 [facility] W/O HOSPITALS ANGINA [...] W/EXACERBAT ION C3490 MALIGNANT 03-26-2017 [facility] P UNS BRONCHUS/RAJAN NG C3411 MALIGNANT 03-19-2017 [facility] UPPER LOBE [facility]ING ASS RT BRONCHUS/RAJAN NG R590 LOCALIZED 03-19-2017 [facility] L[facility]H [facility] R918 OTHER 03-19-2017 [facility] NONSPECIFIC MEDICAL ABNORMAL IMAGING ASS FINDING OF LUNG FIELD Z0389 ENCOUNTER 03-19-2017 [facility] OBSERV [facility]TH [facility] SUSPCT DZ & INC COND RULED OUT M6281 MUSCLE 03-06-2017 [facility] GENERALIZED HOME R010 BENIGN AND 03-06-2017 [facility] IN[facility]OCENT [facility] CARDIAC HOME MURMURS R5382 CHRONIC 03-06-2017 [facility]UE [facility] UNSPECIFIED HOME R55 SYNCOPE AND 03-06-2017 [facility] COLLAPSE CUSTODIAL D381 NEOPLASM 03-05-[address] [facility] P BRONCHUS & LUNG J439 [...] PAIGE & ORGANISM DUBILIER C3431 MALIGNANT 02-03-2017 [facility] P RT BRONCHUS/RAJAN NG J9621 ACUTE & 02-03-2017 [facility] P FAILURE WITH HYPOXIA 86643 COR 06-09-2012 [facility]IMARY UNSPEC CARE TYPE VESSEL ROSEBUD/EDYTA T 4660 ACUTE 06-09-2012 [facility] BRONCHITIS PRIMARY CARE 09172 CHEST PAIN 06-09-2012 [facility] UNSPECIFIED PRIMARY CARE 65748 OTHER 12-13-2008 [facility] CAVITY AND PSC SINUSES 7840 HEADACHE 12-13-2008 [facility] PSC 4019 UNSPECIFIED 12-07-2008 [facility] ESSENTIAL T HYPERTENSIO N 39464 OBSTRUCTIVE 12-07-2008 [facility] CHRONIC T BRONCHITIS WITHOUT EXACERBAT 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 4720 CHRONIC 10-10-2008 [facility] RHINITIS MOY J 4730 CHRONIC 10-10-2008 [facility] MAXILLARY MOY J SINUSITIS 4731 CHRONIC 10-10-2008 [facility] FRONTAL MOY J SINUSITIS 4732 CHRONIC 10-10-2008 [facility] ETHMOIDAL MOY J SINUSITIS 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 JENNY BULLOCK 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 99254 NONEXUDATIV 09-09-2008 Matias BULLOCK SENILE ROZ MACULAR DEGENERATIO N RETINA 34841 UNSPECIFIED 09-09-2008 KOBE CORNEAL ROZ OPACITY 2722 MIXED 09-08-2008 [facility] [place] [facility] ALBA 4779 ALLERGIC 09-08-2008 JUNIORROZ RHINITIS T CAUSE UNSPECIFIED 07738 PAIN IN 09-08-2008 [facility] JOINT, T SHOULDER REGION V7644 SPECIAL 09-08-2008 [facility] SCREENING [place] [facility] MALIGNANT NEOPLASM OF PROSTATE 3502 ATYPICAL 07-08-2008 [facility] FACE PAIN MOY Mccollum 470 DEVIATED 07-08-2008 [facility] NASAL MOY Mccollum SEPTUM 4780 HYPERTROPHY 07-08-2008 [facility], OF NASAL MOY J TURBINATES 4718 OTHER POLYP 07-05-2008 [facility] 496 CHRONIC 07-05-2008 [facility] AIR[facility] IMAGING PSC OBSTRUCTION NEC 84122 ESOPHAGEAL 07-05-2008 [facility] V5869 LONG-TERM 07-05-2008 [facility] (CURRENT) [facility] USE OF MEDICAL OTHER CENT MEDICATIONS 2356 NEOPLASM OF 02-22-2008 [facility] UNCERTAIN MOY Mccollum BEHAVIOR OF LARYNX 39206 OTHER VOICE 02-22-2008 DENISE IRVIN RESONANCE DISORDERS [...] Detail nces retati t Range on Magnesium SerPl-mCnc (04-25-2017 03:39) Magnesi 1.8 1.9-2.4 [...] te 017 mg/dL ed SerPl-m 16:13 Cnc Glyhm (06-15-2013 11:39) Hemoglo 5.9 % 4.2-6.3 complet bin A1c 013 ed 11:39 Vit B12 (06-15-2013 11:39) Vitamin 304 211-911 complet B12, 013 pg/mL ed Level 11:39 CBC WITH AUTO DIFFERENTIAL (12-17-2011 05:13) WHITE 4.49 4.00-11 Normal complet BLOOD 012 THOU/uL .00 ed COUNT 05:13 RED 4.45 4.60-6. Below complet BLOOD 012 MILL/uL 20 low ed COUNT 05:13 normal HEMOGLO 14.1 14.0-18 Normal complet BIN 012 g/dL .0 ed 05:13 HEMATOC 41.6 % 40.0-54 Normal complet RIT 012 .0 ed 05:13 MEAN 93.5 fL 80.0-94 Normal complet CORPUSC 012 .0 ed ULAR 05:13 VOLUME MEAN 31.7 pg 26.0-33 Normal complet CORPUSC 012 .0 ed ULAR 05:13 HEMOGLO BIN MEAN 33.9 31.0-36 Normal complet CORPUSC 012 g/dL .0 ed ULAR 05:13 HGB CONC RED 13.4 % 11.5-14 Normal complet CELL 012 .5 ed DISTRIB 05:13 UTION WIDTH PLATELE 80 150-375 Below complet T COUNT 012 THOU/uL low ed 05:13 normal MEAN 10.5 fL 8.6-11. Normal complet PLATELE 012 7 ed T 05:13 VOLUME IMM 12-16-2 < 3 % <3 Normal complet GRANULO 012 ed CYTE % 05:13 NEUTROP 2 45.4 % 47.0-76 Below complet HILS % 012 .0 low ed 05:13 normal LYMPH % 12-16-2 38.5 % 12.0-44 Normal complet 012 .0 ed 05:13 MONO % 12-16-2 12.2 % 2.0-12. Above complet 012 0 high ed 05:13 normal EOS % 12-16-2 3.3 % 0.0-6.0 Normal complet 012 ed 05:13 BASO % 12-16-2 0.4 % 0.0-2.0 Normal complet 012 ed 05:13 NEUTROP 12-16-2 2.03 1.50-7. Normal complet HIL, 012 THOU/uL 00 ed ABSOLUT 05:13 E LYMPH, 12-16-2 1.73 1.00-4. Normal complet ABSOLUT 012 THOU/uL 00 ed E 05:13 MONO, 12-16-2 0.55 0.00-1. Normal complet ABSOLUT 012 THOU/uL 00 ed E 05:13 EOS, 12-16-2 0.15 0.00-0. Normal complet ABSOLUT 012 THOU/uL 40 ed E 05:13 BASO, 12-16-2 0.02 0.00-0. Normal complet ABSOLUT 012 THOU/uL 20 ed E 05:13 BASIC METABOLIC PANEL (12-17-2011 05:13) GLUCOSE 12-16-2 99 70-100 Normal complet 012 mg/dL ed 05:13 BLOOD 12-16-2 8 mg/dL 7-25 Normal complet UREA 012 ed NITROGE 05:13 N CREATIN 0.54 0.70-1. Below complet INE 012 mg/dL 30 low ed 05:13 normal GLOMERU > 60 >60 Normal complet LAR 012 ed FILTRAT 05:13 ION RATE BUN/CRE 14.8 10.0-20 Normal complet ATININE 012 .0 ed RATIO 05:13 SODIUM 140 137-145 Normal complet 012 mEq/L ed 05:13 POTASSI 3.9 3.5-5.1 Normal complet UM 012 mEq/L ed 05:13 CHLORID 102 98-109 Normal complet E 012 mEq/L ed 05:13 CARBON 32.0 22.0-30 Above complet DIOXIDE 012 mEq/L .0 high ed 05:13 normal CALCIUM 7.9 8.4-10. Below complet 012 mg/dL 2 low ed 05:13 normal LIPID PROFILE (12-17-2011 05:13) CHOLEST 121 115-200 Normal complet PAMELA 012 mg/dL ed 05:13 TRIGLYC 96 <150 Normal complet ERIDES 012 mg/dL ed 05:13 HDL 62 >39 Normal complet CHOLEST 012 mg/dL ed PAMELA 05:13 LDL 40 <100 Normal complet CHOLEST 012 mg/dL ed PAMELA 05:13 VLDL 19 Normal complet CHOLEST 012 mg/dL ed PAMELA 05:13 NON-HDL 59 Normal complet 012 mg/dL ed CHOLEST 05:13 PAMELA CHOLEST 2.0 Normal complet PAMELA/HD 012 ed L RATIO 05:13 CBC WITH AUTO DIFFERENTIAL (12-16-2011 09:25) WHITE 12-15- 6.55 4.00-11 Normal complet BLOOD 012 THOU/uL .00 ed COUNT 09:25 RED 12-15-2 5.24 4.60-6. Normal complet BLOOD 012 MILL/uL 20 ed COUNT 09:25 HEMOGLO 12-15- 16.9 14.0-18 Normal complet BIN 012 g/dL .0 ed 09:25 HEMATOC 49.0 % 40.0-54 Normal complet RIT 012 .0 ed 09:25 MEAN 03-12-2 93.5 fL 80.0-94 Normal complet CORPUSC 012 .0 ed ULAR 09:25 VOLUME MEAN 03-12-2 32.3 pg 26.0-33 Normal complet CORPUSC 012 .0 ed ULAR 09:25 HEMOGLO BIN MEAN 03-12-2 34.5 31.0-36 Normal complet CORPUSC 012 g/dL .0 ed ULAR 09:25 HGB CONC RED 03-12-2 13.5 % 11.5-14 Normal complet CELL 012 .5 ed DISTRIB 09:25 UTION WIDTH PLATELE 03-12-2 122 150-375 Below complet T COUNT 012 THOU/uL low ed 09:25 normal MEAN 03-12-2 10.5 fL 8.6-11. Normal complet PLATELE 012 7 ed T 09:25 VOLUME IMM 03-12-2 < 3 % <3 Normal complet GRANULO 012 ed CYTE % 09:25 NEUTROP 03-12-2 41.0 % 47.0-76 Below complet HILS % 012 .0 low ed 09:25 normal LYMPH % 03-12-2 45.2 % 12.0-44 Above complet 012 .0 high ed 09:25 normal MONO % 03-12-2 10.4 % 2.0-12. Normal complet 012 0 ed 09:25 EOS % 03-12-2 2.6 % 0.0-6.0 Normal complet 012 ed 09:25 BASO % 03-12-2 0.5 % 0.0-2.0 Normal complet 012 ed 09:25 NEUTROP 03-12-2 2.69 1.50-7. Normal complet HIL, 012 THOU/uL 00 ed ABSOLUT 09:25 E LYMPH, 03-12-2 2.96 1.00-4. Normal complet ABSOLUT 012 THOU/uL 00 ed E 09:25 MONO, 03-12-2 0.68 0.00-1. Normal complet ABSOLUT 012 THOU/uL 00 ed E 09:25 EOS, 03-12-2 0.17 0.00-0. Normal complet ABSOLUT 012 THOU/uL 40 ed E 09:25 BASO, 03-12-2 0.03 0.00-0. Normal complet ABSOLUT 012 THOU/uL 20 ed E 09:25 CK-MB (INITIAL) (12-16-2011 09:25) CK-MB 1.34 <=2.37 Normal complet (INITIA 012 ng/mL ed L) 09:25 LIPID PROFILE (12-16-2011 09:25) CHOLEST 178 115-200 Normal complet PAMELA 012 mg/dL ed 09:25 TRIGLYC 116 <150 Normal complet ERIDES 012 mg/dL ed 09:25 HDL 92 >39 Normal complet CHOLEST 012 mg/dL ed PAMELA 09:25 LDL 63 <100 Normal complet CHOLEST 012 mg/dL ed PAMELA 09:25 VLDL 23 Normal complet CHOLEST 012 mg/dL ed PAMELA 09:25 NON-HDL 86 Normal complet 012 mg/dL ed CHOLEST 09:25 PAMELA CHOLEST 1.9 Normal complet PAMELA/HD 012 ed L RATIO 09:25 CREATINE KINASE (12-16-2011 09:25) CREATIN 60 U/L 55-170 Normal complet E 012 ed KINASE 09:25 BLOOD CULTURE (12-15-2011 10:10) BLOOD NO active CULTURE 012 GROWTH REPORT 10:10 AFTER 3 DAYS BLOOD CULTURE (12-15-2011 09:55) BLOOD NO active CULTURE 012 GROWTH REPORT 09:55 AFTER 3 DAYS COMPREHENSIVE METABOLIC PANEL (12-15-2011 09:43) GLUCOSE 120 70-100 Above complet 012 mg/dL high ed 09:43 normal BLOOD 5 mg/dL 7-25 Below complet UREA 012 low ed NITROGE 09:43 normal N CREATIN 0.60 0.70-1. Below complet INE 012 mg/dL 30 low ed 09:43 normal GLOMERU > 60 >60 Normal complet LAR 012 ed FILTRAT 09:43 ION RATE BUN/CRE 8.3 Normal complet ATININE 012 ed RATIO 09:43 SODIUM 140 137-145 Normal complet 012 mmol/L ed 09:43 POTASSI 4.4 3.5-5.1 Normal complet UM 012 mmol/L ed 09:43 CHLORID 99 98-109 Normal complet E 012 mmol/L ed 09:43 CARBON 28.0 22.0-30 Normal complet DIOXIDE 012 mmol/L .0 ed 09:43 CALCIUM 9.3 8.4-10. Normal complet 012 mg/dL 2 ed 09:43 TOTAL 8.1 6.3-8.2 Normal complet PROTEIN 012 g/dL ed 09:43 ALBUMIN 4.5 3.5-5.0 Normal complet 012 g/dL ed 09:43 BILIRUB 0.8 0.2-1.3 Normal complet IN,TOTA 012 mg/dL ed L 09:43 ASPARTA 35 U/L 15-46 Normal complet TE 012 ed AMINOTR 09:43 ANSFERA SE/AST ALANINE 26 U/L 13-69 Normal complet 012 ed AMINOTR 09:43 ANSFERA SE/ALT ALKALIN 121 U/L 38-126 Normal complet E 012 ed PHOSPHA 09:43 TASE CREATINE KINASE (12-15-2011 09:43) CREATIN 97 U/L 55-170 Normal complet E 012 ed KINASE 09:43 CBC WITH AUTO DIFFERENTIAL (12-15-2011 09:43) WHITE 5.75 4.00-11 Normal complet BLOOD 012 THOU/uL .00 ed COUNT 09:43 RED 5.84 4.60-6. Normal complet BLOOD 012 MILL/uL 20 ed COUNT 09:43 HEMOGLO 18.5 14.0-18 Above complet BIN 012 g/dL .0 high ed 09:43 normal HEMATOC 53.0 % 40.0-54 Normal complet RIT 012 .0 ed 09:43 MEAN 90.8 fL 80.0-94 Normal complet CORPUSC 012 .0 ed ULAR 09:43 VOLUME MEAN 31.7 pg 26.0-33 Normal complet CORPUSC 012 .0 ed ULAR 09:43 HEMOGLO BIN MEAN 34.9 31.0-36 Normal complet CORPUSC 012 g/dL .0 ed ULAR 09:43 HGB CONC RED 03-11-2 13.7 % 11.5-14 Normal complet CELL 012 .5 ed DISTRIB 09:43 UTION WIDTH PLATELE 12-14-2 146 150-375 Below complet T COUNT 012 THOU/uL low ed 09:43 normal MEAN 12-14-2 10.0 fL 8.6-11. Normal complet PLATELE 012 7 ed T 09:43 VOLUME NEUTROP 11-2 53.4 % 47.0-76 Normal complet HILS % 012 .0 ed 09:43 LYMPH % 11-2 36.2 % 12.0-44 Normal complet 012 .0 ed 09:43 MONO % -11-2 8.3 % 2.0-12. Normal complet 012 0 ed 09:43 EOS % 11-2 1.6 % 0.0-6.0 Normal complet 012 ed 09:43 BASO % -11-2 0.5 % 0.0-2.0 Normal complet 012 ed 09:43 NEUTROP 11-2 3.07 1.50-7. Normal complet HIL, 012 THOU/uL 00 ed ABSOLUT 09:43 E LYMPH, 12-14-2 2.08 1.00-4. Normal complet ABSOLUT 012 THOU/uL 00 ed E 09:43 MONO, -11-2 0.48 0.00-1. Normal complet ABSOLUT 012 THOU/uL 00 ed E 09:43 EOS, -11-2 0.09 0.00-0. Normal complet ABSOLUT 012 THOU/uL 40 ed E 09:43 BASO, 11-2 0.03 0.00-0. Normal complet ABSOLUT 012 THOU/uL 20 ed E 09:43 CK-MB (INITIAL) (12-15-2011 09:43) CK-MB 12-14-2 2.79 <=2.37 Above complet (INITIA 012 ng/mL upper ed L) 09:43 panic limits TROPONIN I (INITIAL) (12-15-2011 09:43) TROPONI 12-14-2 < 0.012 <=0.034 Normal complet N I 012 ng/mL ed (INITIA 09:43 L) Procedures Procedure DOS Code Location Performer Comment PORTABLE E0443 [facility] O2 7 MEDICAL MEDICAL CONTENTS GASEOUS 1 MO SUPPLY=1 UNIT ECG 32005 [place] ROUTINE 7 MEDICAL ECG SERV W/LEAST FOUNDATIO 12 LDS N I&R ONLY RADIOLOGI 81091 [place] TRUE C 7 MEDICAL EXAMINATI SERV ON CHEST FOUNDATIO SINGLE N VIEW FRONTAL NEBULIZER E0570 [facility] WITH 7 MEDICAL MEDICAL COMPRESSO R HUMDIFIR E0562 [facility] HEATED 7 MEDICAL MEDICAL USED EQUIPMENT EQUIPMENT W/[place] [address] [facility] ABDOMEN & 7 [facility] PELVIS INC INC W/CONTRAS T MATERIAL CT THORAX [address] [facility] [place] [place] 7 MEDICAL W/CONTRAS IMAGING T ASS MATERIAL LOCM Q9967 [facility] 300-399 7 [facility] MG/ML INC INC IODINE CONCENTRA TION PER ML PORTABLE E0443 [facility]URNER O2 7 MEDICAL MEDICAL CONTENTS GASEOUS 1 MO SUPPLY=1 [place] [address] COMBINED COMBINED UREA 7 PHYSICIAN PHYSICIAN NITROGEN S LA S LA QUANTITAT AURELIA CREATININ 82901 COMBINED COMBINED E BLOOD 7 PHYSICIAN PHYSICIAN S LA S LA NEBULIZER E0570 [facility] WITH 7 MEDICAL MEDICAL COMPRESSO R HUMDIFIR E0562 [facility] HEATED 7 MEDICAL MEDICAL USED EQUIPMENT EQUIPMENT W/POS ARWAY PRESSURE DEVICE AMBULANCE A0428 [facility] 7 AMBULANCE AMBULANCE BLS [facility]SP[facility] A0425 [facility] 7 AMBULANCE AMBULANCE PER SERVICE SERVICE STATUTE MILE NEBULIZER E0570 [facility] WITH 7 MEDICAL MEDICAL COMPRESSO R ADMN SET A7005 [facility] T[facility]NER W/SM VOL 7 MEDICAL MEDICAL NONFILTR NEBULIZR NON-DISPB L ECG 22572 [facility] ROUTINE 7 [facility] W/LEAST P P 12 LDS I&[place] [address] CHIPPS PICKLESIM SURG 7 PAIGE & ER JR PATHOLOGY DUBILIER GROSS&DONNY ROSCOPIC EXAM CYTP 38695 [facility]IP[facility] PICKLESIM SLCTV 7 PAIGE & ER JR CELL DUBILIER ENHANCEME NT INTERPJ XCPT C/V INITIAL 70713 [facility] [address] [facility] [place] [address] THORAX [address] [facility] [place] MONROYPINEDA 7 MEDICAL W/CONTRAS IMAGING T ASS MATERIAL MRI BRAIN 81863 [facility] BOSWELL, BRAIN 9 IMAGING MANPREET STEM W/O ASSOCIATE W/CONTRAS S PSC T MATERIAL NASAL 26968 [facility] ENDOSCOPY 9 , MOY VENEGAS DIAGNOSTI C UNI/BI SPX XTRNL 59932 KOBE BULLOCK, OCULAR 8 ROZ COURTNEY PHOTOG W/I&R DOCMT MEDICAL PROGRE FUNDUS 34731 KOBE BULLOCK, PHOTOGRAP 8 ROZ COURTNEY HY W/INTERPR ETATION & REPORT COMPREHEN 91869 [facility] SIVE 8 [facility] METABOLIC PANEL COLLECTIO 93884 JUNIOR, RICE, N VENOUS 8 ROZ COURTNEY T BLOOD VENIPUNCT URE PROSTATE G0103 [facility] CANCER 8 [facility] (SAM) [facility] Surveying And Mapping (SAM) [facility] SCREENING ; PSA TEST LIPID 92509 [facility] PANEL 8 [facility] Surveying And Mapping (SAM) [facility] HEMOGLOBI 74318 [facility] N 8 [facility] GLYCOSYLA NU A1C NASAL 98735 [facility] ENDOSCOPY 8 , MOY VENEGAS DIAGNOSTI C UNI/BI SPX NASAL/SIN 10115 [facility] NDSC 8 , MOY VENEGAS SURG W/TELLY BULLOSA RESECTION INJECTION J2[address] [facility] HCL PER CENT CENT 1 MG NSL/SINUS 35033 [facility] NDSC MAX [address] [place] [address] ANTROST MEDICAL MEDICAL W/RMVL CENT CENT TISS MAX SINUS NASAL/SIN [address] ENDOSCOPY MEDICAL MEDICAL CENT CENT W/ETHMOID ECTOMY TOTAL SUBMUCOUS 77947 [facility] RESCJ [address] [place] [address] INFERIOR MEDICAL MEDICAL TURBINATE CENT CENT PRTL/COMP L NASAL/SIN 19051 [facility] US NDSC 8 , MOY VENEGAS W/FRONTAL SINUS EXPLORATI ON INFUSION J7030 [facility] NORMAL 8 [facility]AL SALINE MEDICAL MEDICAL SOLUTION CENT CENT 1000 CC INJECTION J3010 [facility] FENTANYL 8 REGIONAL REGIONAL CITRATE MEDICAL MEDICAL 0.1 MG CENT CENT INJECTION J2710 [facility] 8 REGIONAL REGIONAL NEOSTIGMI MEDICAL MEDICAL NE CENT CENT METHYLSUL FATE UP TO 0.5 MG SEPTOPLAS 21612 [facility] TY/SUBMUC 8 , MOY VENEGAS OUS RESECJ W/WO CARTILAGE GRF FLUOROSCO 71708 [facility] PY SPX UP 8 REGIONAL REGIONAL TO 1 MEDICAL MEDICAL HOUR CENT CENT PHYS/[place] [address] [facility] SURG 8 REGIONAL REGIONAL PATHOLOGY MEDICAL MEDICAL CENT CENT GROSS&DONNY ROSCOPIC EXAM INJECTION J2405 [facility] 8 REGIONAL REGIONAL ONDANSETR MEDICAL MEDICAL ON HCL CENT CENT PER 1 MG INJECTION J2370 [facility] 8 REGIONAL REGIONAL PHENYLEPH MEDICAL MEDICAL RINE HCL CENT CENT UP TO 1 ML NASAL/SIN 56480 [facility] US 8 , MOY VENEGAS ENDOSCOPY W/ETHMOID ECTOMY PARTIAL RINGERS J7120 [facility] LACTATE 8 REGIONAL REGIONAL INFUSION MEDICAL MEDICAL UP TO CENT CENT 1000 CC INJECTION J2001 [facility] 8 REGIONAL REGIONAL LIDOCAINE MEDICAL MEDICAL HCL CENT CENT INTRAVENO US INFUS 10 MG INJECTION J1100 [facility] 8 REGIONAL REGIONAL DEXAMETHO MEDICAL MEDICAL SONE CENT CENT SODIUM PHOSPHATE 1 MG PROTHROMB 07419 [facility] IN TIME 8 REGIONAL REGIONAL MEDICAL MEDICAL CENT CENT ECG 77750 [facility] ROUTINE 8 REGIONAL REGIONAL ECG MEDICAL MEDICAL W/LEAST CENT CENT 12 LDS TRCG ONLY W/O I&R COLLECTIO 63616 [facility] N VENOUS 8 REGIONAL REGIONAL BLOOD MEDICAL MEDICAL VENIPUNCT CENT CENT URE RADIOLOGI 85881 [facility] C EXAM 8 REGIONAL REGIONAL CHEST 2 MEDICAL MEDICAL VIEWS CENT CENT FRONTAL&L ATERAL BLOOD 91115 [facility] COUNT 8 REGIONAL REGIONAL COMPLETE MEDICAL MEDICAL AUTO&AUTO CENT CENT DIFRNTL WBC DRUG 56477 [facility] ASSAY 8 REGIONAL REGIONAL VALPROIC MEDICAL MEDICAL DIPROPYLA CENT CENT CETIC ACID TOTAL ECG 34741 [facility] DALATI, ROUTINE 8 REGIONAL WILLIE A ECG MEDICAL W/LEAST CENTER 12 LDS I&R ONLY THROMBOPL 97560 [facility] ASTIN 8 REGIONAL REGIONAL TIME MEDICAL MEDICAL PARTIAL CENT CENT PL[place] [address] [facility] MAXILLOFA 8 REGIONAL REGIONAL CIAL W/O MEDICAL MEDICAL CONTRAST CENT CENT MATERIAL LARYNGOSC 70731 [facility] 8 , MOY Mccollum , [...] Date Code Location Performer Type Date HOSPITAL - 7 7 [facility] OFFICE [address] [place] [facility] 7 7 [facility] 15 P MINUTES HOSPITAL RAUL - 7 7 [facility]PAT[facility] 7 7 [facility] OFF[facility] [address] [place] [facility] 7 7 [facility] 10 P MIN[facility]ES [facility]PATIENT 7 7 [facility] OFFICE [id number] SUZAN [facility]PATIEN 2 2 PRIMARY T VISIT [facility]ARE 15 MINUTES CLINIC, [facility] 2 2 [facility] [place] [id number] [facility] T MEDIC OFFICE [id number] [facility] OUTPATIEN 9 9 ROZ Patterson T VISIT 15 MINUTES OFFICE 98228 [place] OUTLUANNE 8 8 ROZ Patterson VISIT 25 MINUTES OFFICE 47003 [facility] OUTPATIMARILYN 8 8 ROZ Patterson T VISIT 10 MINUTES [facility] [place] [id number] 8 [facility] T CENT OFFICE [id number] J[facility] CONSULTARELI 8 8 ROZ Patterson ION NEW/ESTAB PATIENT 60 MIN [facility] [place] [id number] 8 [facility] [id number] [facility] 8 8 , MOY VENEGAS T NEW 30 MINUTES OFFICE 83623 [facility] OUTPATIEN 8 8 ROZ Patterson T VISIT 15 MINUTES
--- OUTSIDE RECORDS SUMMARY | 2017-05-21 18:16 | External Medical Summary Rpt ---
Author Author , JESUS LEE Address Unknown Phone [email or web address] Providers Care Flask Pusher Name Role Phone ALAN PHILLIPS Unavailable Unavailable [...] Unavailable RO[facility] BULLOCK EVANS, Unavailable Unavailable [facility] Unavailable Unavailable HOME, [facility], Unavailable Unavailable [facility] Unavailable Unavailable INC, [facility] Unavailable Unavailable HOSPITAL P, [facility] Unavailable Unavailable [facility], [facility] [place] Un[place] [facility], [facility], [facility]available Unavailable [facility], Unavailable Unavailable [facility] MARIVEL PRADO, Unavailable Unavailable ROZ TADEO JR, RICE, Unavailable Unavailable ROZ Patterson TRUE, TRUE Unavailable Unavailable [facility] Unavailable Unavailable HOSPITALS, [facility] MOY IRVIN, Unavailable Unavailable MOY IRVIN PHILIP N, Unavailable Unavailable AMI GAMBOA Purpose Continuity of Care Document - 10-22-2007 through 2016 Problems Code Diagnosis DOS Provider Status J449 CHRONIC 04-29-2017 [facility] OBSTRUCTIVE MEDICAL PULMONARY DISEASE UNS R0902 HYPOXEMIA 04-29-2017 [facility] E8342 HYPOMAGNESE 04-24-2017 [facility] I10 ESSENTIAL 04-24-2017 [facility]YP[facility] HOSPIT[facility] N I2510 ASHD SKAGWAY 04-24-2017 [facility] ART[facility] W/O HOSPITALS ANGINA [...] W/EXACERBAT ION C3490 MALIGNANT 03-26-2017 [facility] NEOP[facility]M [facility] P UNS BRONCHUS/RAJAN NG C3411 MALIGNANT 03-19-2017 [facility] NEOPLASM MEDICAL UPPER LOBE IMAGING ASS RT BRONCHUS/RAJAN NG R590 LOCALIZED 03-19-2017 [place] ENLARGED MEDICAL LYMPH NODES [facility] R918 OTHER 03-19-2017 [place] NONSPECIFIC MEDICAL ABNORMAL IMAGING ASS FINDING OF [...] COLL[facility] CARE HOME D381 NEOPLASM 03-05-[address] [facility] BRONCHUS & LUNG [...] PAIGE & ORGANISM DUBILIER C3431 MALIGNANT 02-03-2017 [facility] P RT BRONCHUS/RAJAN NG J9621 ACUTE & 02-03-2017 [facility] P FAILURE WITH HYPOXIA 29459 COR 06-09-2012 [facility] PRIMARY UNSPEC CARE TYPE VESSEL SKAGWAY/EDYTA T 4660 ACUTE 06-09-2012 [facility] BRONCHITIS PRIMARY CARE 07872 CHEST PAIN 06-09-2012 [facility] UNSPECIFIED PRIMARY CARE 64967 OTHER 12-13-2008 [facility] CAVITY AND PSC SINUSES 7840 HEADACHE 12-13-2008 [facility] PSC 4019 UNSPECIFIED 12-07-2008 [facility] PAC[facility]CO ESSENTIAL T HYPERTENSIO N 97189 OBSTRUCTIVE 12-07-2008 [facility] CHRONIC T BRONCHITIS WITHOUT EXACERBAT 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 4720 CHRONIC 10-10-2008 [facility] RHINITIS MOY J 4730 CHRONIC 10-10-2008 [facility] MAXILLARY MOY J SINUSITIS 4731 CHRONIC 10-10-2008 [facility] FRONTAL MOY J SINUSITIS 4732 CHRONIC 10-10-2008 [facility] ETHMOIDAL MOY J SINUSITIS 45626 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 JENNY BULLOCK 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 02179 NONEXUDATIV 09-09-2008 Matias BULLOCK SENILE ROZ MACULAR DEGENERATIO N RETINA 29433 UNSPECIFIED 09-09-2008 KOBE CORNEAL ROZ OPACITY 2722 MIXED 09-08-2008 [facility] [place] [facility] ALBA 4779 ALLERGIC 09-08-2008 JUNIORROZ RHINITIS T CAUSE UNSPECIFIED 92710 PAIN IN 09-08-2008 [facility] JOINT, T SHOULDER REGION V7644 SPECIAL 09-08-2008 [facility] [place] [facility] MALIGNANT NEOPLASM OF PROSTATE 3502 ATYPICAL 07-08-2008 [facility] FACE PAIN MOY Mccollum 470 DEVIATED 07-08-2008 [facility] NASAL MOY Mccollum SEPTUM 4780 HYPERTROPHY 07-08-2008 [facility], OF NASAL MOY J TURBINATES 4718 OTHER POLYP 07-05-2008 [facility] 496 CHRONIC 07-05-2008 [facility] [place] 33360 ESOPHAGEAL 07-05-2008 [facility] REFLUX [facility] MEDICAL CENT V5869 LONG-TERM 07-05-2008 [facility] (CURRENT) [facility] USE OF MEDICAL OTHER CENT MEDICATIONS 2356 NEOPLASM OF 02-22-2008 [facility] UNCERTAIN MOY Mccollum BEHAVIOR OF LARYNX 47426 OTHER VOICE 02-22-2008 DENISE IRVIN RESONANCE DISORDERS [...] CONTENTS GASEOUS 1 MO SUPPLY=1 UNIT ECG 18483 [place] ROUTINE 7 MEDICAL ECG SERV W/LEAST FOUNDATIO 12 LDS N I&R ONLY RADIOLOGI 79841 [place] TRUE C 7 MEDICAL EXAMINATI SERV ON CHEST FOUNDATIO SINGLE N VIEW FRONTAL NEBULIZER E0570 [facility] WITH 7 MEDICAL MEDICAL COMPRESSO R HUMDIFIR E0562 [facility] HEATED 7 MEDICAL MEDICAL USED EQUIPMENT EQUIPMENT W/[place] [address] [facility] ABDOMEN & 7 [facility] PELVIS INC INC W/CONTRAS T MATERIAL CT THORAX [address] [facility] 7 MEDICAL W/CONTRAS IMAGING T ASS MATERIAL LOCM Q9967 [facility] [phone] [facility] MG/ML INC INC IODINE CONCENTRA TION PER ML PORTABLE E0443 [facility] O2 7 MEDICAL MEDICAL CONTENTS GASEOUS 1 MO SUPPLY=1 [place] [address] COMBINED COMBINED UREA 7 PHYSICIAN PHYSICIAN NITROGEN S LA S LA QUANTITAT AURELIA CREATININ 31582 COMBINED COMBINED E BLOOD 7 PHYSICIAN PHYSICIAN S LA S LA NEBULIZER E0570 [facility] WITH 7 MEDICAL MEDICAL COMPRESSO R HUMDIFIR E0562 [facility] HEATED 7 MEDICAL MEDICAL USED EQUIPMENT EQUIPMENT W/POS ARWAY PRESSURE DEVICE AMBULANCE A0428 [facility] SERVICE 7 AMBULANCE AMBULANCE BLS [facility]SP[facility] A0425 [facility] MILEAGE 7 AMBULANCE AMBULANCE PER SERVICE SERVICE STATUTE MILE NEBULIZER E0570 [facility] WITH 7 MEDICAL MEDICAL COMPRESSO R ADMN SET A7005 [facility] W/SM VOL 7 MEDICAL MEDICAL NONFILTR NEBULIZR NON-DISPB L ECG 11419 [facility] ROUTINE 7 [facility] W/LEAST P P 12 LDS [place] [address] CHIPPS PICKLESIM SURG 7 PAIGE & ER JR PATHOLOGY DUBILIER GROSS&DONNY ROSCOPIC EXAM CYTP 42310 [facility]IP[facility] PICKLESIM SLCTV 7 PAIGE & ER JR CELL DUBILIER ENHANCEME NT INTERPJ XCPT C/V INITIAL 47334 [facility] 7 [facility] [address] THORAX 62880 [facility] MONROYPINEDA 7 MEDICAL W/CONTRAS IMAGING T ASS MATERIAL MRI BRAIN 35552 [facility] BOSWELL, BRAIN 9 IMAGING MANPREET STEM W/O ASSOCIATE W/CONTRAS S PSC T MATERIAL NASAL 90367 [facility] ENDOSCOPY 9 , MOY VENEGAS DIAGNOSTI C UNI/BI SPX XTRNL 26451 KOBE BULLOCK, OCULAR 8 ROZ COURTNEY PHOTOG W/I&R DOCMT MEDICAL PROGRE FUNDUS 03645 KOBE BULLOCK, PHOTOGRAP 8 ROZ COURTNEY HY W/INTERPR ETATION & REPORT COMPREHEN 50944 [facility] SIVE 8 [facility] METABOLIC PANEL COLLECTIO 69746 JUNIOR, RICE, N VENOUS 8 ROZ CUORTNEY T BLOOD VENIPUNCT URE PROSTATE G0103 [facility] CANCER 8 [place] [facility] SCREENING ; PSA TEST LIPID 70313 [facility] PANEL 8 [facility] Was[facility] 3D [facility] HEMOGLOBI 84027 [facility] N 8 [facility] GLYCOSYLA NU A1C NASAL 07141 [facility] ENDOSCOPY 8 , MOY VENEGAS DIAGNOSTI C UNI/BI SPX NASAL/SIN 89190 [facility] NDSC 8 , MOY VENEGAS SURG W/TELLY BULLOSA RESECTION INJECTION J2[address] [facility] HCL PER CENT CENT 1 MG NSL/SINUS 88509 [facility] NDSC MAX [address] [place] [address] ANTROST MEDICAL MEDICAL W/RMVL CENT CENT TISS MAX SINUS NASAL/SIN [address] ENDOSCOPY MEDICAL MEDICAL CENT CENT W/ETHMOID ECTOMY TOTAL SUBMUCOUS 81317 [facility] RESCJ [address] [place] [address] INFERIOR MEDICAL MEDICAL TURBINATE CENT CENT PRTL/COMP L NASAL/SIN 77261 [facility] US NDSC 8 , MOY VENEGAS W/FRONTAL SINUS EXPLORATI ON INFUSION J7030 [facility] NORMAL 8 REGIONAL REGIONAL SALINE MEDICAL MEDICAL SOLUTION CENT CENT 1000 CC INJECTION J3010 [facility] FENTANYL 8 REGIONAL REGIONAL CITRATE MEDICAL MEDICAL 0.1 MG CENT CENT INJECTION J2710 [facility] 8 REGIONAL REGIONAL NEOSTIGMI MEDICAL MEDICAL NE CENT CENT METHYLSUL FATE UP TO 0.5 MG SEPTOPLAS 36456 [facility] TY/SUBMUC 8 , MOY VENEGAS OUS RESECJ W/WO CARTILAGE GRF FLUOROSCO 73615 [facility] PY SPX UP 8 REGIONAL REGIONAL TO 1 MEDICAL MEDICAL HOUR CENT CENT PHYS/[place] [address] [facility] SURG 8 REGIONAL REGIONAL PATHOLOGY MEDICAL MEDICAL CENT CENT GROSS&DONNY ROSCOPIC EXAM INJECTION J2405 [facility] 8 REGIONAL REGIONAL ONDANSETR MEDICAL MEDICAL ON HCL CENT CENT PER 1 MG INJECTION J2370 [facility] 8 REGIONAL REGIONAL PHENYLEPH MEDICAL MEDICAL RINE HCL CENT CENT UP TO 1 ML NASAL/SIN 40415 [facility] US 8 , MOY VENEGAS ENDOSCOPY W/ETHMOID ECTOMY PARTIAL RINGERS J7120 [facility] LACTATE 8 REGIONAL REGIONAL INFUSION MEDICAL MEDICAL UP TO CENT CENT 1000 CC INJECTION J2001 [facility] 8 REGIONAL REGIONAL LIDOCAINE MEDICAL MEDICAL HCL CENT CENT INTRAVENO US INFUS 10 MG INJECTION J1100 [facility] 8 REGIONAL REGIONAL DEXAMETHO MEDICAL MEDICAL SONE CENT CENT SODIUM PHOSPHATE 1 MG PROTHROMB 55694 [facility] IN TIME 8 REGIONAL REGIONAL MEDICAL MEDICAL CENT CENT ECG 48736 [facility] ROUTINE 8 REGIONAL REGIONAL ECG MEDICAL MEDICAL W/LEAST CENT CENT 12 LDS TRCG ONLY W/O I&R COLLECTIO 22339 [facility] N VENOUS 8 REGIONAL REGIONAL BLOOD MEDICAL MEDICAL VENIPUNCT CENT CENT URE RADIOLOGI 58818 [facility] C EXAM 8 REGIONAL REGIONAL CHEST 2 MEDICAL MEDICAL VIEWS CENT CENT FRONTAL&L ATERAL BLOOD 90815 [facility] COUNT 8 REGIONAL REGIONAL COMPLETE MEDICAL MEDICAL AUTO&AUTO CENT CENT DIFRNTL WBC DRUG 12507 [facility] ASSAY 8 REGIONAL REGIONAL VALPROIC MEDICAL MEDICAL DIPROPYLA CENT CENT CETIC ACID TOTAL ECG 92289 [facility] DALATI, ROUTINE 8 REGIONAL WILLIE A ECG MEDICAL W/LEAST CENTER 12 LDS I&R ONLY THROMBOPL 39156 [facility] ASTIN 8 REGIONAL REGIONAL TIME MEDICAL MEDICAL PARTIAL CENT CENT PLASMA/[place] [address] [facility] MAXILLOFA 8 REGIONAL REGIONAL CIAL W/O MEDICAL MEDICAL CONTRAST CENT CENT MATERIAL LARYNGOSC 64656 [facility] 8 , MOY Mccollum , [...] 7 7 [facility] OFFICE 48768 [place] [facility] 7 7 [facility] 15 P MINUTES HOSPITAL RAUL - 7 7 [facility] 7 7 [facility] OFF[facility] 36322 [place] [facility] 7 7 [facility] [address] [facility] IN[facility] 7 7 [facility] OFFICE 18376 [facility] OUT[facility]IEN 2 2 PRIMARY T VISIT CARE 15 MINUTES CLINIC, [facility] 2 2 [facility] [place] [id number] 9 [facility] T MEDIC OFFICE 82445 JUNIOR [facility] OUTPATIEN 9 9 ROZ Patterson T VISIT 15 MINUTES OFFICE 17234 KOBE BULLOCK OUTLUANNE 8 8 ROZ Patterson VISIT 25 MINUTES OFFICE 52942 [facility] OUTPATIMARILYN 8 8 ROZ Patterson T VISIT 10 MINUTES [facility] [place] [address] 8 [facility] T CENT OFFICE 06969 JUNIOR [facility] CONSULTARELI 8 8 ROZ Patterson ION NEW/ESTAB PATIENT 60 MIN [facility] [place] [address] 8 [facility] 6[address] [facility] 8 8 , MOY VENEGAS T NEW 30 MINUTES OFFICE 16683 JUNIOR [facility] OUTPATIEN 8 8 ROZ Patterson T VISIT 15 MINUTES
--- OUTSIDE RECORDS SUMMARY | 2017-05-21 18:18 | External Medical Summary Rpt ---
Author Author KRISTINE Address Unknown Phone [email or web address] Immunization Name Date Rout CVX Reac Dose Comm Prov Is Faci e tion ent ider Refu lity Give sed n PPV2 10-1 33 999 Hist H158 No H158 3 9-20 oric 06 al Info rmat ion - Sour ce Unsp ecif ied
--- OUTSIDE RECORDS SUMMARY | 2017-05-21 18:18 | External Medical Summary Rpt ---
Author Author KRISTINE Address Unknown Phone [email or web address] Immunization Name Date Rout CVX Reac Dose Comm Prov Is Faci e tion ent ider Refu lity Give sed n PPV2 10-1 33 999 Hist H158 No H158 3 9-20 oric 06 al Info rmat ion - Sour ce Unsp ecif ied
--- OUTSIDE RECORDS SUMMARY | 2017-05-21 18:18 | External Medical Summary Rpt ---
Author Author , JESUS Organization JESUS Address Unknown Phone [email or web address] Care Team Providers Care Project Management Specialist Name Role Phone [facility] [place] Unavailable Unavailable INC, [facility] [place] [facility] BESJIM, BESSON Unavailable Unavailable BOSWELL, BOSWELL [...] Unavailable ROZ BULLOCK EVANS, Unavailable Unavailable [facility] Unavailable [facility], [facility], Unavailable Unavailable [facility] Unavailable Unavailable INC, [facility] Unavailable Unavailable HOSPITAL P, [facility] Unavailable Un[facility], [facility] [place] Un[place] [facility], [facility], Unavailable Unavailable [facility], Unavailable Unavailable [facility] MARIVEL PRADO, Unavailable Unavailable ROZ TADEO JR, RICE, Unavailable Unavailable ROZ Patterson TRUE, TRUE Unavailable Unavailable [facility] Unavailable Unavailable HOSPITALS, COUNTS INCLUDE 234 BEDS AT [facility] MOY IRVIN, Unavailable Unavailable MOY IRVIN PHILIP N, Unavailable Unavailable AMI GAMBOA Purpose Continuity of Care Document - 10-22-2007 through 2016 Problems Code Diagnosis DOS Provider Status J449 CHRONIC 04-29-2017 [facility] OBSTRUCTIVE MEDICAL PULMONARY DISEASE UNS R0902 HYPOXEMIA 04-29-2017 [facility] MEDICAL E8342 HYPOMAGNESE 04-24-2017 [facility] I10 ESSENTIAL 04-24-2017 [facility] N I2510 ASHD KIPNUK 04-24-2017 [facility]ALTHCARE ARTERY W/O HOSPITALS ANGINA [...] W/EXACERBAT ION C3490 MALIGNANT 03-26-2017 [facility] P UNS BRONCHUS/RAJAN NG C3411 MALIGNANT 03-19-2017 [facility] NE[facility] MEDICAL UPPER LOBE IMAGING ASS RT BRONCHUS/RAJAN NG R590 LOCALIZED 03-19-2017 [place] ENLARGED [facility] LYMPH NODES [facility]ING ASS R918 OTHER 03-19-2017 [place] NONSPECIFIC MEDICAL ABNORMAL IMAGING ASS FINDING OF [...] HAVEN COLLAPSE CUSTODIAL D381 NEOPLASM 03-05-2017 [facility] BRONCHUS & LUNG J439 EMPHYSEMA 02-06-2017 [facility] UNSPECIFIED AMBULANCE SERVICE J189 PNEUMONIA 02-04-2017 [facility] UNSPECIFIED PAIGE & ORGANISM DUBILIER C3431 MALIGNANT 02-03-2017 [facility] NEOPLASM [facility] LOWER LOBE [facility] P RT BRONCHUS/RAJAN NG J9621 ACUTE & 02-03-2017 [facility] P FAILURE WITH HYPOXIA 22460 COR 06-09-2012 [facility]IMARY UNSPEC CARE TYPE VESSEL KIPNUK/EDYTA T 4660 ACUTE 06-09-2012 [facility] BRONCHITIS PRIMARY CARE 11761 CHEST PAIN 06-09-2012 [facility] UNSPECIFIED PRIMARY CARE 16382 OTHER 12-13-2008 [facility] CAVITY AND PSC SINUSES 7840 HEADACHE 12-13-2008 [facility] PSC 4019 UNSPECIFIED 12-07-2008 [facility] PACHECO ESSENTIAL T HYPERTENSIO N 32867 OBSTRUCTIVE 12-07-2008 [facility] CHRONIC T BRONCHITIS WITHOUT EXACERBAT 75543 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 4720 CHRONIC 10-10-2008 [facility] RHINITIS MOY J 4730 CHRONIC 10-10-2008 [facility] MAXILLARY MOY J SINUSITIS 4731 CHRONIC 10-10-2008 [facility] FRONTAL MOY Mccollum SINUSITIS 4732 CHRONIC 10-10-2008 [facility] ETHMOIDAL MOY Mccollum SINUSITIS 63911 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 JENNY BULLOCK 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 65993 NONEXUDATIV 09-09-2008 Matias BULLOCK SENILE ROZ MACULAR DEGENERATIO N RETINA 43404 UNSPECIFIED 09-09-2008 KOBE CORNEAL ROZ OPACITY 2722 MIXED 09-08-2008 [facility] ALBA 4779 ALLERGIC 09-08-2008 [facility] RHINITIS T CAUSE UNSPECIFIED 00666 PAIN IN 09-08-2008 [facility] JOINT, T SHOULDER REGION V7644 SPECIAL 09-08-2008 [facility] SCREENING [facility] MALIGNANT NEOPLASM OF PROSTATE 3502 ATYPICAL 07-08-2008 [facility] FACE PAIN MOY J 470 DEVIATED 07-08-2008 [facility] NASAL MOY J SEPTUM 4780 HYPERTROPHY 07-08-2008 [facility] OF NASAL MOY J TURBINATES 4718 OTHER POLYP 07-05-2008 [place] [facility] 496 CHRONIC 07-05-2008 [facility] [place] [place] 67880 ESOPHAGEAL 07-05-2008 [place] [facility] V5869 LONG-TERM 07-05-2008 [place] (CURRENT) REGIONAL USE OF MEDICAL OTHER CENT MEDICATIONS 2356 NEOPLASM OF 02-22-2008 [facility] IRVIN BEH[facility]IOR OF LARYNX 13021 OTHER VOICE 02-22-2008 DENISE IRVIN RESONANCE DISORDERS V1582 PERS HX 02-22-2008 [facility] TOBACCO USE MOY Mccollum PRESENTING [facility] 2724 OTHER AND 11-02-2007 RO[facility] PAC[facility]CO UNSPECIFIED T HYPERLIPIDE ALBA Procedures Procedure DOS Code Location Performer Comment PORTABLE E0443 TURNER TURNER O2 7 MEDICAL MEDICAL CONTENTS GASEOUS 1 MO SUPPLY=1 UNIT RADIOLOGI [address]26 [place] TRUE C 7 MEDICAL EXAMINATI SERV ON CHEST FOUNDATIO SINGLE N VIEW FRONTAL ECG 86806 [place] ROUTINE 7 MEDICAL ECG SERV W/LEAST FOUNDATIO 12 LDS N I&R ONLY NEBULIZER E0570 TURNER TURNER WITH 7 MEDICAL MEDICAL COMPRESSO R HUMDIFIR E0562 TURNER TURNER HEATED 7 MEDICAL MEDICAL USED EQUIPMENT EQUIPMENT W/POS ARWAY PRESSURE DEVICE CT THORAX 37790 [place] [facility] 7 MEDICAL W/[place] [address] [facility] CARTER ABDOMEN & 7 [facility] PELVIS INC INC W/CONTRAS T MATERIAL LOCM Q9967 [facility] [phone] [facility] MG/ML INC INC IODINE CONCENTRA TION PER ML PORTABLE E0443 TURNER TURNER O2 7 MEDICAL MEDICAL CONTENTS GASEOUS 1 MO SUPPLY=1 [place] [address] COMBINED COMBINED UREA 7 PHYSICIAN PHYSICIAN NITROGEN S LA S LA QUANTITAT AURELIA CREATININ 06051 COMBINED COMBINED E BLOOD 7 PHYSICIAN PHYSICIAN S LA S LA NEBULIZER E0570 TURNER TURNER WITH 7 MEDICAL MEDICAL COMPRESSO R HUMDIFIR E0562 TURNER TURNER HEATED 7 MEDICAL MEDICAL USED EQUIPMENT EQUIPMENT W/POS ARWAY PRESSURE DEVICE GROUND A0425 [facility] MILEAGE 7 AMBULANCE AMBULANCE PER SERVICE SERVICE STATUTE MILE ADMN SET A7005 TURNER TURNER W/SM VOL 7 MEDICAL MEDICAL NONFILTR NEBULIZR NON-DISPB L AMBULANCE A0428 [facility] SERVICE 7 AMBULANCE AMBULANCE BLS SERVICE SERVICE NONEMERGE NCY TRANSPORT NEBULIZER E0570 JOHNNY TURNER WITH 7 MEDICAL MEDICAL COMPRESSO R ECG 17471 [facility] CARTER ROUTINE 7 [facility] W/LEAST P P 12 LDS I&R ONLY CYTP 03941 [facility] PICKLES[facility] SLCTV 7 PAIGE & ER JR CELL DUBILIER ENHANCEME NT INTERP[place] XCP[place] C/[place] [address] [facility] PICKLES[facility] SURG 7 PAIGE & ER JR PATHOLOGY DUBILIER GROSS&DONNY ROSCOPIC EXAM INITIAL 71011 [facility] 7 [facility] [address] THORAX 47060 SCAR MONROYCHER 7 MEDICAL W/CONTRAS IMAGING T ASS MATERIAL MRI BRAIN 73837 [facility] BOSWELL, BRAIN 9 IMAGING MANPREET STEM W/O ASSOCIATE W/CONTRAS S PSC T MATERIAL NASAL 56155 ALBARO IRVIN ENDOSCOPY 9 , MOY VENEGAS DIAGNOSTI C UNI/BI SPX XTRNL 63812 KOBE BULLOCK, OCULAR 8 ROZ COURTNEY PHOTOG W/I&R DOCMT MEDICAL PROGRE FUNDUS 50432 KOBE BULLOCK, PHOTOGRAP 8 ROZ COURTNEY HY W/INTERPR ETATION & REPORT COLLECTIO 59569 JUNIOR [facility] N VENOUS 8 ROZ Patterson BLOOD VENIPUNCT URE COMPREHEN 37438 [facility] SIVE 8 [facility] METABOLIC PANEL HEMOGLOBI 61736 [facility] N 8 [facility] GLYCOSYLA NU A1C LIPID 49727 [facility] PANEL 8 [facility] PROSTATE G0103 [facility] CANCER 8 [facility] SCREENING ; PSA TEST NASAL 03985 ALBARO IRVIN ENDOSCOPY 8 , MOY VENEGASTI C UNI/BI SPX NSL/SINUS 33442 ALBARO IRVIN NDSC MAX 8 MOY MARK J ANTROST W/RMVL TISS MAX SINUS SUBMUCOUS 37351 ALBARO IRVIN RESCJ 8 , MOY VENEGAS INFERIOR TURBINATE PRTL/COMP L NASAL/SIN 81218 [facility] NDSC 8 , MOY VENEGAS SURG W/[place] [address] [facility] SURG 8 [facility] PATHOLOGY INC INC GROSS&DONNY ROSCOPIC EXAM FLUOROSCO 39936 [facility] PY SPX UP 8 REGIONAL REGIONAL TO 1 MEDICAL MEDICAL HOUR CENT CENT PHYS/QHP TIME INJECTION J2370 [facility] 8 REGIONAL REGIONAL PHENYLEPH MEDICAL MEDICAL RINE HCL CENT CENT UP TO 1 ML INJECTION J2405 [facility] 8 REGIONAL REGIONAL ONDANSETR MEDICAL MEDICAL ON HCL CENT CENT PER 1 MG NASAL/SIN 40219 [facility] 8 , MOY VENEGAS ENDOSCOPY W/ETHMOID ECTOMY PARTIAL SEPTOPLAS 72567 [facility] TY/SUBMUC 8 , MOY VENEGAS OUS RESECJ W/WO CARTILAGE GRF INJECTION J2710 [facility] 8 REGIONAL REGIONAL NEOSTIGMI MEDICAL MEDICAL NE CENT CENT METHYLSUL FATE UP TO 0.5 MG INJECTION J3010 [facility] FENTANYL 8 REGIONAL REGIONAL CITRATE MEDICAL MEDICAL 0.1 MG CENT CENT INFUSION J7030 [facility] NORMAL 8 REGIONAL REGIONAL SALINE MEDICAL MEDICAL SOLUTION CENT CENT 1000 CC NASAL/SIN 07868 [facility] NDSC 8 , MOY VENEGAS W/FRONTAL SINUS EXPLORATI ON INJECTION J1100 [facility] 8 REGIONAL REGIONAL DEXAMETHO MEDICAL MEDICAL SONE CENT CENT SODIUM PHOSPHATE 1 MG INJECTION J2001 [facility] 8 REGIONAL REGIONAL LIDOCAINE MEDICAL MEDICAL HCL CENT CENT INTRAVENO US INFUS 10 MG RINGERS J7120 [facility] LACTATE 8 REGIONAL REGIONAL INFUSION MEDICAL MEDICAL UP TO CENT CENT 1000 CC NASAL/SIN 44856 [facility] 8 REGIONAL REGIONAL ENDOSCOPY MEDICAL MEDICAL CENT CENT W/ETHMOID ECTOMY TOTAL INJECTION J2250 [facility] 8 REGIONAL REGIONAL MIDAZOLAM MEDICAL MEDICAL HCL PER CENT CENT 1 MG RADIOLOGI 25382 [facility] [place], C EXAM 8 [place] AMI N CHEST 2 IMAGING VIEWS PSC FRONTAL&L ATERAL ECG 22384 JARRATT DALATI, ROUTINE 8 REGIONAL WILLIE A ECG MEDICAL W/LEAST CENTER 12 LDS I&R ONLY DRUG 30384 [facility] ASSAY 8 REGIONAL REGIONAL VALPROIC MEDICAL MEDICAL DIPROPYLA CENT CENT CETIC ACID TOTAL BLOOD 09182 [facility] COUNT 8 REGIONAL REGIONAL COMPLETE MEDICAL MEDICAL AUTO&AUTO CENT CENT DIFRNTL WBC ECG 52510 [facility] ROUTINE 8 REGIONAL REGIONAL ECG MEDICAL MEDICAL W/LEAST CENT CENT 12 LDS TRCG ONLY W/O I&R THROMBOPL 15663 [facility] ASTIN 8 REGIONAL REGIONAL TIME MEDICAL MEDICAL PARTIAL CENT CENT PLASMA/WH OLE BLOOD PROTHROMB 13159 [facility] IN TIME 8 REGIONAL REGIONAL MEDICAL MEDICAL CENT CENT COLLECTIO 32290 [facility] N VENOUS 8 REGIONAL REGIONAL BLOOD MEDICAL [place] [address] [facility] MAXILLOFA 8 REGIONAL REGIONAL CIAL W/O MEDICAL MEDICAL CONTRAST CENT CENT MATERIAL LARYNGOSC 23095 [facility] DURHAM 8 , MOY Mccollum , [...] Location Performer Type Date HOSPITAL - 7 [facility] OFFICE 09227 [facility] 7 [facility] - 7 7 [facility]PATIEN [facility]PAT[facility] 7 7 [facility] OFF[facility] 76104 [facility] OUTPATIEN 7 7 [facility] 10 P MINUTES [facility]PATIENT 7 7 [facility] OFF[facility] 47147 [facility] 2 2 PRIMARY T VISIT CARE 15 MINUTES [facility] [place] [id number] 9 [facility] LANIER T MEDIC OFFICE 71434 [facility] OUTPATIEN 9 9 ROZ Patterson T VISIT 15 MINUTES OFFICE 32357 KOBE BULLOCK OUTPATIEN 8 8 ROZ Patterson VISIT 25 MINUTES OFFICE 22571 [facility] OUTPATIEN 8 8 ROZ Patterson T VISIT 10 MINUTES [facility] [place] [address] 8 [facility] 42201 J[facility] CONSULTAT 8 8 ROZ Patterson ION NEW/ESTAB PATIENT 60 MIN [facility] [place] [address] 8 [facility] OUTPATIEN MEDICAL T CENT OFFICE 47883 [facility] OUTPATI 8 8 , MOY VENEGAS T NEW 30 MINUTES OFFICE 12622 [facility] OUTPATIEN 8 8 ROZ Patterson T VISIT 15 MINUTES
--- OUTSIDE RECORDS SUMMARY | 2017-05-21 18:18 | External Medical Summary Rpt ---
Author Author , JESUS Organization JESUS Address Unknown Phone [email or web address] Care Team Providers Care Equipment Installer Name Role Phone [facility] Unavailable Unavailable INC, [facility] BESJIM, BESSON Unavailable Unavailable BOSWELL, BOSWELL [...] [facility] Unavailable Unavailable EQUIPMENT, [facility] PINEDA, PINEDA Unavailable Unavailable DALATI, WILLIE A, Unavailable Unavailable DALATI, WILLIE A PHILIP, PHILIP Unavailable Unavailable ROZ BULLOCK EVANS, Unavailable Unavailable [facility] Un[facility], [facility], Unavailable Unavailable [facility] Unavailable Unavailable INC, [facility] Unavailable Unavailable HOSPITAL P, [facility] Unavailable Unavailable [facility]ICAL CENT, [facility] [place] Un[place] Unavailable [facility] Unavailable Unavailable [facility], [facility], [facility], [facility]available Unavailable [facility], Unavailable Unavailable [facility] MARIVEL PRADO, Unavailable Unavailable ROZ TADEO JR, RICE, Unavailable Unavailable ROZ Patterson TRUE, TRUE Unavailable Unavailable [facility] Unavailable Unavailable HOSPITALS, [facility] MOY IRVIN, Unavailable Unavailable MOY IRVIN PHILIP N, Unavailable Unavailable AMI GAMBOA Purpose Continuity of Care Document - 10-22-2007 through 2016 Problems Code Diagnosis DOS Provider Status J449 CHRONIC 04-29-2017 [facility] OBSTRUCTIVE MEDICAL PULMONARY DISEASE UNS R0902 HYPOXEMIA 04-29-2017 [facility] MEDICAL E8342 HYPOMAGNESE 04-24-2017 [facility] I10 ESSENTIAL 04-24-2017 [facility] N I2510 ASHD [place] 04-24-2017 [facility]ONARY HEALTHCARE ARTERY W/O HOSPITALS ANGINA [...] P UNS BRONCHUS/RAJAN NG C3411 MALIGNANT 03-19-2017 [facility] NEOPLASM MEDICAL UPPER LOBE IMAGING ASS RT BRONCHUS/RAJAN NG R590 LOCALIZED 03-19-2017 [place] ENLARGED [facility]ICAL LYMPH NODES [facility] ASS R918 OTHER 03-19-2017 [place] NONSPECIFIC MEDICAL ABNORMAL IMAGING ASS FINDING OF LUNG FIELD Z0389 ENCOUNTER 03-19-2017 [facility] OBS[facility] OTH [facility] SUSPCT DZ & INC COND RULED OUT M6281 MUSCLE 03-06-2017 [facility] GENERALIZED HOME R010 BENIGN AND 03-06-2017 [facility] INNOCENT [facility] CARDIAC HOME MURMURS R5382 CHRONIC 03-06-2017 [facility] FAT[facility]UE [facility] UNSPECIFIED HOME R55 SYNCOPE AND 03-06-2017 [facility] D381 NEOPLASM 03-05-2017 [facility] P BRONCHUS & LUNG J439 EMPHYSEMA 02-06-2017 [facility] UNSPECIFIED AMBULANCE SERVICE J189 PNEUMONIA 02-04-2017 [facility] UNSPECIFIED PAIGE & ORGANISM DUBILIER C3431 MALIGNANT 02-03-2017 [facility] NEOPLASM [facility] P RT BRONCHUS/RAJAN NG J9621 ACUTE & 02-03-2017 [facility] P FAILURE WITH HYPOXIA 25539 COR 06-09-2012 [facility]IMARY UNSPEC CARE TYPE VESSEL LAC [place]/EDYTA T 4660 ACUTE 06-09-2012 [facility] BRONCHITIS PRIMARY CARE 96527 CHEST PAIN 06-09-2012 [facility] UNSPECIFIED PRIMARY CARE 30025 OTHER 12-13-2008 [facility] CAVITY AND PSC SINUSES 7840 HEADACHE 12-13-2008 [facility] PSC 4019 UNSPECIFIED 12-07-2008 [facility] ESSENTIAL T HYPERTENSIO N 66170 OBSTRUCTIVE 12-07-2008 [facility] CHRONIC T BRONCHITIS WITHOUT EXACERBAT 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 4720 CHRONIC 10-10-2008 [facility] RHINITIS MOY J 4730 CHRONIC 10-10-2008 [facility] MAXILLARY MOY J SINUSITIS 4731 CHRONIC 10-10-2008 [facility] FRONTAL MOY Mccollum SINUSITIS 4732 CHRONIC 10-10-2008 [facility] ETHMOIDAL MOY Mccollum SINUSITIS 32458 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 JENNY BULLOCK 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 64061 NONEXUDATIV 09-09-2008 Matias BULLOCK SENILE ROZ MACULAR DEGENERATIO N RETINA 90271 UNSPECIFIED 09-09-2008 KOBE CORNEAL ROZ OPACITY 2722 MIXED 09-08-2008 [facility] HY[facility]LIPIDE [employer] [facility] ALBA 4779 ALLERGIC 09-08-2008 [facility] RHINITIS T CAUSE UNSPECIFIED 62814 PAIN IN 09-08-2008 [facility] JOINT, T SHOULDER REGION V7644 SPECIAL 09-08-2008 [facility] SCREENING [employer] [facility] MALIGNANT NEOPLASM OF PROSTATE 3502 ATYPICAL 07-08-2008 [facility] FACE PAIN MOY J 470 DEVIATED 07-08-2008 [facility] NASAL MOY J SEPTUM 4780 HYPERTROPHY 07-08-2008 [facility] OF NASAL MOY J TURBINATES 4718 OTHER POLYP 07-05-2008 [facility] 496 CHRONIC 07-05-2008 [facility] PSC OBSTRUCTION NEC 85456 ESOPHAGEAL 07-05-2008 [facility] V5869 LONG-TERM 07-05-2008 [facility] (CURRENT) REGIONAL USE OF MEDICAL OTHER CENT MEDICATIONS 2356 NEOPLASM OF 02-22-2008 GORDO IRVIN [facility] [place] 25846 OTHER VOICE 02-22-2008 DENISE IRVIN RESONANCE DISORDERS V1582 PERS HX 02-22-2008 [facility] TOBACCO USE MOY Mccollum PRESENTING [facility] 2724 OTHER AND 11-02-2007 [facility] UNSPECIFIED T HYPERLIPIDE ALBA Procedures Procedure DOS Code Location Performer Comment PORTABLE E0443 T[facility]NER TURNER O2 7 MEDICAL MEDICAL CONTENTS GASEOUS 1 MO SUPPLY=1 UNIT RADIOLOGI 02998 [place] TRUE C 7 MEDICAL EXAMINATI SERV ON CHEST FOUNDATIO SINGLE N VIEW FRONTAL ECG 35323 [place] ROUTINE 7 MEDICAL ECG SERV W/LEAST FOUNDATIO 12 LDS N I&R ONLY NEBULIZER E0570 TURNER TURNER WITH 7 MEDICAL MEDICAL COMPRESSO R HUMDIFIR E0562 T[facility]NER TURNER HEATED 7 MEDICAL MEDICAL USED EQUIPMENT EQUIPMENT W/POS ARWAY PRESSURE DEVICE CT THORAX 75924 [place] [facility] 7 MEDICAL W/[place] [address] [facility] CARTER ABDOMEN & 7 MEM HOS[facility] PELVIS INC INC W/CONTRAS T MATERIAL LOCM Q9967 [facility]UL [phone] 7 MEM HOS[facility] MG/ML INC INC IODINE CONCENTRA TION PER ML PORTABLE E0443 TURNER TURNER O2 7 MEDICAL MEDICAL CONTENTS GASEOUS 1 MO SUPPLY=1 [place] [address] COMBINED COMBINED UREA 7 PHYSICIAN PHYSICIAN NITROGEN S LA S LA QUANTITAT AURELIA CREATININ 29296 COMBINED COMBINED E BLOOD 7 PHYSICIAN PHYSICIAN S LA S LA NEBULIZER E0570 T[facility]NER TURNER WITH 7 MEDICAL MEDICAL COMPRESSO R HUMDIFIR E0562 [facility]NER TURNER HEATED 7 MEDICAL MEDICAL USED EQUIPMENT EQUIPMENT W/POS ARWAY PRESSURE DEVICE GROUND A0425 [facility] MILEAGE 7 AMBULANCE AMBULANCE PER SERVICE SERVICE STATUTE MILE ADMN SET A7005 TURNER TURNER W/SM VOL 7 MEDICAL MEDICAL NONFILTR NEBULIZR NON-DISPB L AMBULANCE A0428 [facility] SERVICE 7 AMBULANCE AMBULANCE BLS SERVICE SERVICE NONEMERGE NCY TRANSPORT NEBULIZER E0570 JOHNNY TURNER WITH 7 MEDICAL MEDICAL COMPRESSO R ECG 16312 [facility] CARTER ROUTINE 7 [facility] W/LEAST P P 12 LDS I&R ONLY CYTP 40097 [facility] PICK[facility] SLCTV 7 PAIGE & ER JR CELL DUBILIER ENHANCEME NT INTERP[place] XCP[place] C/[place] [address] [facility] SURG 7 PAIGE & ER JR PATHOLOGY DUBILIER GROSS&DONNY ROSCOPIC EXAM INITIAL 53493 [facility] 7 [facility] [address] THORAX 35563 SCAR MONROYCHER 7 MEDICAL W/CONTRAS IMAGING T ASS MATERIAL MRI BRAIN 99760 [facility], BRAIN 9 IMAGING MANPREET STEM W/O ASSOCIATE W/CONTRAS S PSC T MATERIAL NASAL 94298 ALBARO IRVIN ENDOSCOPY 9 , MOY VENEGAS DIAGNOSTI C UNI/BI SPX XTRNL 14363 KOBE BULLOCK, OCULAR 8 ROZ COURTNEY PHOTOG W/I&R DOCMT MEDICAL PROGRE FUNDUS 03510 KOBE BULLOCK, PHOTOGRAP 8 ROZ COURTNEY HY W/INTERPR ETATION & REPORT COLLECTIO 87607 [facility] N VENOUS 8 ROZ Patterson BLOOD VENIPUNCT URE COMPREHEN 08537 [facility] SIVE 8 [facility] METABOLIC PANEL HEMOGLOBI 94353 [facility] N 8 [facility] GLYCOSYLA NU A1C LIPID 93726 [facility] PANEL 8 [facility] PROSTATE G0103 [facility] CANCER 8 [facility] SCREENING ; PSA TEST NASAL 55508 ALBARO IRVIN ENDOSCOPY 8 , MOY VENEGASTI C UNI/BI SPX NSL/SINUS 60104 ALBARO IRVIN NDSC MAX 8 MOY MARK J ANTROST W/RMVL TISS MAX SINUS SUBMUCOUS 33991 ALBARO IRVIN RESCJ 8 , MOY VENEGAS INFERIOR TURBINATE PRTL/COMP L NASAL/SIN 82737 [facility] NDSC 8 , MOY VENEGAS SURG W/[place] [address] [facility] SURG 8 [facility] PATHOLOGY INC INC GROSS&DONNY ROSCOPIC EXAM FLUOROSCO 14189 [facility] PY SPX UP 8 REGIONAL REGIONAL TO 1 MEDICAL MEDICAL HOUR CENT CENT PHYS/QHP TIME INJECTION J2370 [facility] 8 REGIONAL REGIONAL PHENYLEPH MEDICAL MEDICAL RINE HCL CENT CENT UP TO 1 ML INJECTION J2405 [facility] 8 REGIONAL REGIONAL ONDANSETR MEDICAL MEDICAL ON HCL CENT CENT PER 1 MG NASAL/SIN 78691 [facility] 8 , MOY VENEGAS ENDOSCOPY W/ETHMOID ECTOMY PARTIAL SEPTOPLAS 24430 [facility] TY/SUBMUC 8 , MOY VENEGAS OUS RESECJ W/WO CARTILAGE GRF INJECTION J2710 [facility] 8 REGIONAL REGIONAL NEOSTIGMI MEDICAL MEDICAL NE CENT CENT METHYLSUL FATE UP TO 0.5 MG INJECTION J3010 [facility] FENTANYL 8 REGIONAL REGIONAL CITRATE MEDICAL MEDICAL 0.1 MG CENT CENT INFUSION J7030 [facility] NORMAL 8 REGIONAL REGIONAL SALINE MEDICAL MEDICAL SOLUTION CENT CENT 1000 CC NASAL/SIN 37725 [facility] NDSC 8 , MOY VENEGAS W/FRONTAL SINUS EXPLORATI ON INJECTION J1100 [facility] 8 REGIONAL REGIONAL DEXAMETHO MEDICAL MEDICAL SONE CENT CENT SODIUM PHOSPHATE 1 MG INJECTION J2001 [facility] 8 REGIONAL REGIONAL LIDOCAINE MEDICAL MEDICAL HCL CENT CENT INTRAVENO US INFUS 10 MG RINGERS J7120 [facility] LACTATE 8 REGIONAL REGIONAL INFUSION MEDICAL MEDICAL UP TO CENT CENT 1000 CC NASAL/SIN 28652 [facility] 8 REGIONAL REGIONAL ENDOSCOPY MEDICAL MEDICAL CENT CENT W/ETHMOID ECTOMY TOTAL INJECTION J2250 [facility] 8 REGIONAL REGIONAL MIDAZOLAM MEDICAL MEDICAL HCL PER CENT CENT 1 MG RADIOLOGI 47074 [facility], C EXAM 8 [place] AMI N CHEST 2 IMAGING VIEWS PSC FRONTAL&L ATERAL ECG 75984 HARRELL DALATI, ROUTINE 8 REGIONAL WILLIE A ECG MEDICAL W/LEAST CENTER 12 LDS I&R ONLY DRUG 19909 [facility] ASSAY 8 REGIONAL REGIONAL VALPROIC MEDICAL MEDICAL DIPROPYLA CENT CENT CETIC ACID TOTAL BLOOD 92201 [facility] COUNT 8 REGIONAL REGIONAL COMPLETE MEDICAL MEDICAL AUTO&AUTO CENT CENT DIFRNTL WBC ECG 72318 [facility] ROUTINE 8 REGIONAL REGIONAL ECG MEDICAL MEDICAL W/LEAST CENT CENT 12 LDS TRCG ONLY W/O I&R THROMBOPL 13387 [facility] ASTIN 8 REGIONAL REGIONAL TIME MEDICAL MEDICAL PARTIAL CENT CENT PLASMA/WH OLE BLOOD PROTHROMB 22214 [facility] IN TIME 8 REGIONAL REGIONAL MEDICAL MEDICAL CENT CENT COLLECTIO 98557 [facility] N VENOUS 8 REGIONAL REGIONAL BLOOD [place] [address] [facility] MAXILLOFA 8 REGIONAL REGIONAL CIAL W/O MEDICAL MEDICAL CONTRAST CENT CENT MATERIAL LARYNGOSC 96156 [facility] DURHAM 8 , MOY Mccollum , [...] - 7 [facility] OFFICE 41120 [facility] OUTPATIEN 7 [facility] P [facility]ES [facility]OSPITAL [facility] - 7 7 [facility] OFFICE 39789 [facility] OUTPATIEN 7 7 [facility] 10 P MINUTES [facility] IN[facility]IENT 7 7 [facility], [facility] 2 2 [facility] OFFICE 30190 [facility] 2 2 PRIMARY T VISIT CARE 15 MINUTES [facility] [place] [address] 9 [facility] T MEDIC OFFICE 47952 [facility] OUTPATIEN 9 9 ROZ Patterson T VISIT 15 MINUTES OFFICE 27553 KOBE BULLOCK OUTPATIEN 8 8 ROZ Patterson VISIT 25 MINUTES OFFICE 03093 [facility] OUTPATIEN 8 8 ROZ Patterson T VISIT 10 MINUTES [facility] [place] [address] 8 [facility] 25493 [facility] CONSULTAT 8 8 ROZ Patterson ION NEW/ESTAB PATIENT 60 MIN [facility] [place] [address] 8 [facility] OUTPATI[facility] MEDICAL T CENT OFFICE 32698 [facility] OUT[facility] 8 8 , MOY VENEGAS T NEW 30 MINUTES OFFICE 30712 JUN[facility] OUTPATIEN 8 8 ROZ Patterson T VISIT 15 MINUTES
[2017-05-21 18:54] VITALS: BP 127/67
[2017-05-21 18:55] VITALS: BP 127/67
[2017-05-21] MEDS ORDERED: XARELTO STARTER20 MG PO (19:03)
[2017-05-21 19:44] VITALS: BP 117/65
[2017-05-22 00:05] VITALS: BP 134/70
[2017-05-22 04:30] VITALS: BP 116/69
--- NOTE | 2017-05-22 07:20 | PHARMACY CLINIC NOTE ---
Patient Demographics Patient Demographics Admission date: 05/21/17 Date: 05/22/17 Time: 0720 Allergies Coded Allergies: No Known Allergies (02/01/17) HEIGHT- FT: 5 IN: 11.00 K.483 VTE General Information Labs: Laboratory Tests 05/21 1210 Coagulation PT (9.4 - 11.8 SECONDS) 10.7 INR (0.9 - 1.1) 0.99 APTT (23.6 - 34.0 SECONDS) 27.4 Hematology Hgb (14.1 - 18.0 g/dL) 12.9 L Hct (42.0 - 52.0 %) 39.1 L Plt Count (142 - 424 K/mm3) 116 L Disclaimer The following section includes nursing documentation that has been pulled in for pharmacy review. Patient's VTE score: 2 Patient's VTE Risk: VERY LOW RISK Clinical trial participant? No VTE prophylaxis NQF 0371 VTE prophylaxis ordered? Yes Type of prophylaxis/treatment: NU at 0720
[2017-05-22 08:35] VITALS: BP 129/74
[2017-05-22 08:46] VITALS: BP 129/74
--- NOTE | 2017-05-22 09:32 | Discharge Summary Standard ---
Demographics: Admit date: 05/22/17 Chief complaint: etoh intoxication PRIMARY DIAGNOSIS: ALCOHOL INTOXICATION Allergies: Coded Allergies: No Known Allergies (02/01/17) History of present illness: History of present illness: 61-year-old male with history of metastatic lung cancer, COPD and CAD was sent to the ED from [facility] where he was to be admitted yesterday due to alcohol intoxication. Patient reports he drinks 6 beers every 2-3 days. He often goes 1-3 days without any alcohol consumption. In the ED, his ETOH level was found to be 111. Patient is followed by Dr. Miguel for oncology. He is currently awaiting results from spinal tumor biopsy. Patient was admitted to acute care for alcohol intoxication on Serax protocol. Past medical history: Family HX Diabetes Yes CAD Yes Hypertension Yes Hyperlipidemia No Cancer Yes TB No Immunization HX DT/Tetanus Unknown Pneumonia Received In Past TB Test in last year Yes Result Negative General CAD? No Angina: No MD: No Hypertension? Yes Hyperlipidemia? Yes CHF? No DVT? No PE? No COPD? Yes Asthma? Yes Anemia? No GERD? Yes Gastric ulcers? No GI Bleed? No Hernia? No Thyroid Problems? No Hypothyroidism? No CVA? No Seizures? No Diabetes? Yes Insulin Dependent: No Insulin Pump: No Home FSBS? Yes Renal Insuffiency? No UTI? No Stones? No BPH? No GB Disease: No Nephritic Syndrome? No Asplenia? No Hepatitis? No Sickle Cell Disease? No Arthritis? No Migraines? No Cataracts? Yes Glaucoma? No MRSA? No HIV? No TB? No Anxiety? No Depression? No Cancer? Yes Site: LUNG CA More? Yes Additional hx: LYMPHOMA, SKIN CA, has received chemotherapy and radiation for lymphoma and skin cancer of head and neck. Diagnosed with lung cancer 2-3 years ago but "my lungs were too bad to do anything about it." Uses BiPAP at night for ventilatory failure issues given his end-stage chronic obstructive pulmonary disease Past Surgical HX Previous Surgery?Y CATARACTS VOCAL CORD SURGERY Appendectomy CARDIAC STENT X1 Current home meds: Active Scripts NEBULIZER (Compact Compressor Nebulizer) 1 UNIT XX UD #1 DEV Ref 1 Prov: 02/05/17 ALBUTEROL/IPRATROPIUM (Combivent Respimat Inhal [place]) 1 PUFF IH QID 30 Days Ref 3 Prov: 02/05/17 Reported Medications Carvedilol (Carvedilol 6.25MG) 12.5 MG PO BID Amitriptyline Hcl (Amitriptyline) 50 MG PO QHS Amlodipine Besylate (Amlodipine) 5 MG PO DAILY Montelukast Sodium (Singulair 10MG) 10 MG PO DAILY Oxybutynin Chloride (Oxybutynin Chloride ER) 20 MG PO DAILY Trazodone HCl 300 MG PO QHS Roflumilast (Daliresp) 500 MCG PO DAILY DULOXETINE HCL (Cymbalta 60MG) 60 MG PO DAILY Pregabalin (Lyrica 50MG) 50 MG PO BID Metformin HCL (Metformin) 500 MG PO BID PRAVASTATIN SODIUM (Pravastatin Sodium) 40 MG PO QHS FLUTICASONE/SALMETEROL (Advair 500-50 Diskus) 1 PUFF IN BID HYDROCODONE 5MG/APAP 325MG (Hydrocodon-Acetaminophen 5-325) 1 TAB PO Q4HP PRN PAIN Rivaroxaban (Xarelto) 10 MG PO DAILY Social Hx: Smoking HX Tobacco Yes Type Cigarettes Packs/day < 1 PACK Alcohol Alcohol: Yes How much do you drink 6-10 Drinks Per Day For how long Longer Than 5 Years When was your last drink 12-24 Hours Ago Hx of Drug Use Drug Use? No Patient's support system is fair Review of systems: Constitutional weakness. No: chills, diaphoresis, fever. Eyes No: no symptoms reported. Ears, Nose, Mouth, Throat No no symptoms reported Respiratory cough, shortness of breath, SOB with excertion, SOB at rest, wheezing. Cardiovascular No no symptoms reported Gastrointestinal/Abdominal No no symptoms reported Genitourinary No: no symptoms reported. Musculoskeletal back pain. Skin No: no symptoms reported. Neurological No: no symptoms reported. Psychiatric No: no symptoms reported. Exam: Lab data for last 24 hours: Laboratory Tests 05/21/17 2057: Phosphorus 3.6, Magnesium 1.4, PT 10.7, INR 0.99, APTT 27.4, Alcohols 16 05/21/17 1520: Alcohols 111 H 05/21/17 1230: Opiates Screen POSITIVE H, Urine Methadone Screen NEGATIVE, Barbiturates NEGATIVE, Phencyclidine Screen NEGATIVE, Amphetamines Screen NEGATIVE, Benzodiazepines Screen NEGATIVE, Cocaine Screen NEGATIVE, Marijuana (THC) Screen NEGATIVE, Urine Color YELLOW, Urine Appearance CLEAR, Urine pH 6.0, Ur Specific [place] 1.020, Urine Protein NEGATIVE, Urine Ketones 1+ H, Urine Blood NEGATIVE , Urine Nitrate NEGATIVE, Urine Bilirubin NEGATIVE, Urine Urobilinogen 1.0, Ur Leukocyte Esterase NEGATIVE, Urine RBC NONE, Urine WBC OCC, Ur Squamous Epith Cells OCC, Urine Bacteria TRACE, Hyaline Casts 3-5, Urine Mucus 4+, Urine Glucose NEGATIVE 05/21/17 1210: Sodium 132 L, Potassium 3.9, Chloride 92 L, Carbon Dioxide 33 H, BUN 7, Creatinine 0.4 L, Estimated Creat Clear 199, Estimated GFR (MDRD) 219, Glucose 92, Calcium 8.4 L, Total Bilirubin 0.4, AST 26, ALT 31, Alkaline Phosphatase 196 H, Total Protein 7.0, Albumin 2.7 L, Globulin 4.3 H, Albumin/Globulin Ratio 0.6 L, Amylase 26, Lipase 85, WBC 11.2 H, RBC 4.28 L, Hgb 12.9 L, Hct 39.1 L, MCV 91.4, RDW 15.3, Plt Count 116 L, MPV 8.2, Gran % 76.1, Gran # 8.5 H, Lymphocytes % 18.7, Monocytes % 4.3, Eosinophils % 0.6, Basophils % 0.2, Lymphocytes # 2.1, Monocytes # 0.5, Eosinophils # 0.1, Basophils # 0.0, PUBS MCHC 33.1, MCH 30.2, Alcohols 161 H Admission vital signs: 1ST Vital Signs Result Date Time Pulse Ox 97 05/21 1200 B/P 111/51 05/21 1200 O2 Flow Rate 3 05/21 1200 Temp 18.0 05/21 1200 Pulse 84 05/21 1200 Resp 2 05/21 1200 O2 Delivery OXYGEN 05/21 1854 Exam General appearance: alert, awake, no acute distress Eyes: anicteric ENT: mucous membranes moist Neck: normal inspection, non-tender, no JVD Cardiovascular: regular rate & rhythm, normal peripheral pulses, no peripheral edema Respiratory: diminished with wheezes throughout, poor air movement ABD: non-distended, normal bowel sounds, no rebound, soft, no tenderness Genitourinary: no dysuria, no hematuria Extremities: moves all Musculoskeletal: equal muscle strength, sensation intact Skin: dry, intact Neuro: alert, no deficit, normal mood/affect, oriented, speech clear, no tremors Hospital Course Hospital Course: Patient was admitted to acute care for alcohol intoxication. He has not had tremors, agitation or withdrawal symptoms since admission. He was given some oral thiamine and started on the Serax protocol. His score on alcohol withdrawal protocol did not indicate medicating with Serax. This morning he is up in the chair eating breakfast. There is no smell of ETOH and patient reports drinking 2 -3 days per week. He has no evidence of tremors on exam and is cleared for discharge to [facility] today. Discharge to [facility]. Continue current diet and activity level. FU with Huseyin Briones APRN on next scheduled rounding day. Medications Medications: Discharge meds are as noted. Follow up Follow up in office in: 7 DAYS with: Roslyn Briones APRN at 1218
[2017-05-22 11:28] VITALS: BP 129/81
[2017-05-22 14:05] VITALS: BP 129/81
== END 2017-05-22 15:45 ==
LOC: ER 11:57 → 2ND 18:02
PROVIDERS: Emergency Medicine
DX: F10.229 Alcohol dependence with intoxication, unspecified (principal); J44.9 Chronic obstructive pulmonary disease, unspecified; I10 Essential (primary) hypertension; I25.10 Atherosclerotic heart disease of native coronary artery without angina pectoris; Z95.5 Presence of coronary angioplasty implant and graft; Z79.01 Long term (current) use of anticoagulants; C34.90 Malignant neoplasm of unspecified part of unspecified bronchus or lung; C79.9 Secondary malignant neoplasm of unspecified site; C85.91 Non-Hodgkin lymphoma, unspecified, lymph nodes of head, face, and neck; E11.9 Type 2 diabetes mellitus without complications; F10.20 Alcohol dependence, uncomplicated; Z79.899 Other long term (current) drug therapy
CPT/HCPCS: G0378